=== PATIENT | female | born 1960 | race Caucasian/White ===

== ENCOUNTER → 2016-08-31 | Outpatient (CLI) | payer OTHER ==
[~2016-08-31] MED LIST: ALKA10CA PO; AMIO20TA PO; AMOX875T2 PO; DIGO0.12 PO; GUAI1TAB PO; LOPR1TAB6 PO; NIGHLIQ PO; XARE20TA PO
[2016-08-31 10:54] LABS: MEAN CORPUSCULAR HEMOGLOBIN 28.3 pg (27.0-33.0); MEAN CORPUSCULAR HGB CONC 32.1 g/dl (32.0-36.5); MEAN CORPUSCULAR VOLUME 88.2 fl (80.0-96.0); RED CELL DISTRIBUTION WIDTH 12.6 % (11.5-14.5); WHITE BLOOD COUNT 5.6 K/mm3 (4.0-10.0)
[2016-08-31 11:22] LABS: ALBUMIN 3.3 GM/DL (3.2-5.2); ALBUMIN/GLOBULIN RATIO 0.94 (1.00-1.93); ALKALINE PHOSPHATASE 80 U/L (45-117); ALT/SGPT 21 U/L (12-78); ANION GAP 6 MEQ/L (8-16); AST/SGOT 13 U/L (15-37); BILIRUBIN,TOTAL 0.2 MG/DL (0.2-1.0); BLOOD UREA NITROGEN 12 MG/DL (7-18); CALCIUM LEVEL 8.7 MG/DL (8.5-10.1); CARBON DIOXIDE LEVEL 29 MEQ/L (21-32); CHLORIDE LEVEL 110 MEQ/L (98-107); CREATININE FOR GFR 0.81 MG/DL (0.55-1.02); GLOMERULAR FILTRATION RATE > 60.0 (>51); GLUCOSE, FASTING 79 MG/DL (70-105); SODIUM LEVEL 145 MEQ/L (136-145); TOTAL PROTEIN 6.8 GM/DL (6.4-8.2)
== END ==
LOC: M LAB 10:25
PROVIDERS: ATTEND Internal Medicine Cardiovascular Disease
DX: I48.91 Unspecified atrial fibrillation (principal)

== ENCOUNTER → 2017-01-26 | Outpatient (REF) | payer OTHER ==
[~2017-01-26] MED LIST changes: +AMIO200T PO; -AMIO20TA PO
== END ==
LOC: M LAB REF 13:26
PROVIDERS: ATTEND Physician Assistant Medical
DX: N39.0 Urinary tract infection, site not specified (principal)

== ENCOUNTER 2018-02-12 16:11 | Emergency (ER) | payer OTHER, SELFPAY ==
[2018-02-12] MEDS ORDERED: DEXTROSE 50% 50 ML SYRINGE IV ×2 (16:59)
[2018-02-12] MEDS ORDERED: NS 500 ML IV ×2 (17:00)
[2018-02-12] MEDS: PERCOCET 5MG/325MG TAB PO ×2 (17:15)
== END 2018-02-12 17:30 | disposition home or self-care (01) ==
LOC: M ED 16:11
DX: S93.402A Sprain of unspecified ligament of left ankle, initial encounter (principal); X50.1XXA Overexertion from prolonged static or awkward postures, initial encounter; Y92.098 Other place in other non-institutional residence as the place of occurrence of the external cause; I48.91 Unspecified atrial fibrillation; I10 Essential (primary) hypertension; Z87.440 Personal history of urinary (tract) infections; Z79.899 Other long term (current) drug therapy; Z79.01 Long term (current) use of anticoagulants
CPT/HCPCS: 73610

== ENCOUNTER → 2018-02-26 | Outpatient (CLI) | payer BC, OTHER ==
[2018-02-26 08:29] LABS: BASO % 0.5 % (0.0-1.0); EOS # 0.1 10^3/uL (0.0-0.50); EOS % 1.4 % (0.0-3.0); HEMOGLOBIN 11.7 g/dl (12.0-15.5); IMMATURE GRANULOCYTE % 0.4 % (0-3.0); LYMPH # 1.6 10^3/uL (1.5-4.5); LYMPH % 27.9 % (24.0-44.0); MEAN CORPUSCULAR HEMOGLOBIN 28.2 pg (27.0-33.0); MEAN CORPUSCULAR HGB CONC 31.6 g/dl (32.0-36.5); MEAN CORPUSCULAR VOLUME 89.2 fl (80.0-96.0); MONO # 0.4 10^3/uL (0.0-0.8); MONO % 7.7 % (0.0-5.0); NEUTROPHILS # 3.4 10^3/uL (1.8-7.7); NEUTROPHILS % 62.1 % (36.0-66.0); PLATELET COUNT, AUTOMATED 228 10^3/uL (150-450); RED BLOOD COUNT 4.15 10^6/uL (4.00-5.40); RED CELL DISTRIBUTION WIDTH 12.9 % (11.5-14.5); WHITE BLOOD COUNT 5.6 10^3/uL (4.0-10.0)
[2018-02-26 09:21] LABS: ALBUMIN 3.1 GM/DL (3.2-5.2); ALBUMIN/GLOBULIN RATIO 0.76 (1.00-1.93); ALKALINE PHOSPHATASE 77 U/L (45-117); ALT/SGPT 25 U/L (12-78); ANION GAP 5 MEQ/L (8-16); AST/SGOT 13 U/L (7-37); BILIRUBIN,TOTAL 0.5 MG/DL (0.2-1.0); BLOOD UREA NITROGEN 11 MG/DL (7-18); CALCIUM LEVEL 8.3 MG/DL (8.5-10.1); CARBON DIOXIDE LEVEL 27 MEQ/L (21-32); CHLORIDE LEVEL 110 MEQ/L (98-107); CREATININE FOR GFR 0.96 MG/DL (0.55-1.30); FREE T4 1.07 NG/DL (0.76-1.46); GLOMERULAR FILTRATION RATE > 60.0 (>51); GLUCOSE, FASTING 85 MG/DL (70-100); POTASSIUM SERUM 4.2 MEQ/L (3.5-5.1); SODIUM LEVEL 142 MEQ/L (136-145); TOTAL PROTEIN 7.2 GM/DL (6.4-8.2)
[2018-02-26 09:42] LABS: ESTIMATED AVERAGE GLUCOSE 111 MG/DL (60-110); HEMOGLOBIN A1c 5.5 %
== END ==
LOC: M LAB 08:09
DX: I10 Essential (primary) hypertension (principal); R53.83 Other fatigue
CPT/HCPCS: 84443

== ENCOUNTER 2018-05-25 06:32 | Day surgery (SDC) | payer BC, OTHER ==
[2018-05-25] MEDS ORDERED: LIDOCAINE 2% INJ 100 MG/5 ML SDV (FOR ANES.) As Ordered (07:03)
[2018-05-25] MEDS ORDERED: PROPOFOL 200 MG/20 ML VIAL As Ordered (07:03)
[2018-05-25] MEDS: NS 1,000 ML IV (07:07)
== END 2018-05-25 08:25 | disposition home or self-care (01) ==
LOC: M OPP 06:32
DX: K57.30 Diverticulosis of large intestine without perforation or abscess without bleeding (principal); I48.91 Unspecified atrial fibrillation; I10 Essential (primary) hypertension; R60.9 Edema, unspecified; M12.9 Arthropathy, unspecified; F41.9 Anxiety disorder, unspecified; Z79.01 Long term (current) use of anticoagulants; Z79.899 Other long term (current) drug therapy
CPT/HCPCS: 45378

== ENCOUNTER → 2018-06-17 | Outpatient (CLI) | payer BC, OTHER | LOC: M SLEEP 18:25 | DX: G47.33 Obstructive sleep apnea (adult) (pediatric) (principal); R40.0 Somnolence | CPT/HCPCS: 95810 ==

== ENCOUNTER → 2018-07-06 | Outpatient (CLI) | payer BC, OTHER ==
[~2018-07-06] MED LIST changes: +FLUO40CA PO; +LOSA25TA33 PO; +METO1TAB7 PO; +PERC5TAB12 PO
[2018-07-06 13:25] LABS: BLOOD UREA NITROGEN 11 MG/DL (7-18); CALCIUM LEVEL 8.2 MG/DL (8.5-10.1); CARBON DIOXIDE LEVEL 28 MEQ/L (21-32); CHLORIDE LEVEL 107 MEQ/L (98-107); CHOLESTEROL LEVEL 208 MG/DL (<200); CHOLESTEROL RISK RATIO 4.837 (<5); CREATININE FOR GFR 0.89 MG/DL (0.55-1.30); GLOMERULAR FILTRATION RATE > 60.0 (>51); GLUCOSE, FASTING 80 MG/DL (70-100); HDL CHOLESTEROL 43 MG/DL (>40); LDL CHOLESTEROL 138 MG/DL (<100); NON-HDL-C 165 MG/DL; POTASSIUM SERUM 4.4 MEQ/L (3.5-5.1); SODIUM LEVEL 141 MEQ/L (136-145); TRIGLYCERIDES LEVEL 133 MG/DL (<150)
== END ==
LOC: M LAB 12:10
PROVIDERS: ATTEND Physician Assistant Medical
DX: I10 Essential (primary) hypertension (principal)

== ENCOUNTER → 2018-07-06 | Outpatient (CLI) | payer BC, OTHER ==
[2018-07-06 12:49] LABS: HEMATOCRIT 38.3 % (36.0-47.0); HEMOGLOBIN 11.9 g/dl (12.0-15.5); MEAN CORPUSCULAR HEMOGLOBIN 28.2 pg (27.0-33.0); MEAN CORPUSCULAR HGB CONC 31.1 g/dl (32.0-36.5); MEAN CORPUSCULAR VOLUME 90.8 fl (80.0-96.0); PLATELET COUNT, AUTOMATED 225 10^3/uL (150-450); RED BLOOD COUNT 4.22 10^6/uL (4.00-5.40); WHITE BLOOD COUNT 5.9 10^3/uL (4.0-10.0)
[2018-07-06 13:20] LABS: BLOOD UREA NITROGEN 10 MG/DL (7-18); CALCIUM LEVEL 8.3 MG/DL (8.5-10.1); CARBON DIOXIDE LEVEL 28 MEQ/L (21-32); CHLORIDE LEVEL 107 MEQ/L (98-107); CREATININE FOR GFR 0.92 MG/DL (0.55-1.30); GLOMERULAR FILTRATION RATE > 60.0 (>51); GLUCOSE, FASTING 82 MG/DL (70-100); POTASSIUM SERUM 4.4 MEQ/L (3.5-5.1); SODIUM LEVEL 142 MEQ/L (136-145)
== END ==
LOC: M LAB 12:18
PROVIDERS: ATTEND Internal Medicine Cardiovascular Disease
DX: I48.91 Unspecified atrial fibrillation (principal)

== ENCOUNTER → 2018-08-11 | Outpatient (CLI) | payer BC, OTHER ==
[~2018-08-11] MED LIST changes: +LOSA25TA14 PO; -LOSA25TA33 PO
--- NOTE | 2018-08-16 13:21 | SLEEPCENT ---
DATE OF STUDY: 08/11/2018 ORDERED BY: LIN Maynard Nocturnal polysomnography was performed for titration of pressure therapy in this patient with obstructive sleep apnea syndrome. Apnea-hypopnea index 6.5. For testing, a Calvin Eson nasal mask of medium size was used, 4 cm of water pressure were applied to the circuit, and the lights were extinguished. 8 hours and 17 minutes of data were reviewed. There were 406 minutes of sleep identified. Sleep latency was prolonged at 52 minutes. Rapid eye movement (REM) latency was prolonged at 172 minutes. Sleep architecture was fairly good with two REM cycles. Overall sleep efficiency was 82.7%. The patient's electrocardiogram showed a sinus rhythm with an average heart rate of 56 beats per minute. EEG showed reasonably normal waveforms for awake and sleep. There was some alpha intrusion into non REM stages. Respiratory events were best palliated with CPAP at a pressure of +7. There was little activity in the limbs. EMG leads and remaining measures of sleep physiology were normal. IMPRESSION: Obstructive sleep apnea syndrome (G47.33) RECOMMENDATIONS: Nightly use of pressure therapy 7 cm of water.
== END ==
LOC: M SLEEP 20:59
PROVIDERS: ATTEND Nurse Practitioner Family
DX: G47.33 Obstructive sleep apnea (adult) (pediatric) (principal)

== ENCOUNTER 2018-10-05 23:35 | Emergency (ER) | payer BC, OTHER ==
[~2018-10-05] VITALS: Ht 165.1 cm; Wt 104.5 kg
[2018-10-06 00:43] LABS: BASO % 0.5 % (0.0-1.0); EOS # 0.1 10^3/uL (0.0-0.50); EOS % 2.2 % (0.0-3.0); HEMATOCRIT 38.3 % (36.0-47.0); HEMOGLOBIN 12.1 g/dl (12.0-15.5); LYMPH # 1.8 10^3/uL (1.5-4.5); LYMPH % 28.7 % (24.0-44.0); MEAN CORPUSCULAR HEMOGLOBIN 27.6 pg (27.0-33.0); MEAN CORPUSCULAR HGB CONC 31.6 g/dl (32.0-36.5); MEAN CORPUSCULAR VOLUME 87.4 fl (80.0-96.0); MONO # 0.5 10^3/uL (0.0-0.8); MONO % 7.4 % (0.0-5.0); NEUTROPHILS # 3.8 10^3/uL (1.8-7.7); NEUTROPHILS % 60.9 % (36.0-66.0); PLATELET COUNT, AUTOMATED 275 10^3/uL (150-450); RED BLOOD COUNT 4.38 10^6/uL (4.00-5.40); WHITE BLOOD COUNT 6.2 10^3/uL (4.0-10.0)
[2018-10-06] MEDS ORDERED: KETOROLAC 30 MG/ML VIAL (J1885) IV ONE (01:00)
[2018-10-06 01:06] LABS: BLOOD UREA NITROGEN 14 MG/DL (7-18); CALCIUM LEVEL 8.5 MG/DL (8.5-10.1); CARBON DIOXIDE LEVEL 29 MEQ/L (21-32); CHLORIDE LEVEL 106 MEQ/L (98-107); CK-MB VALUE MASS < 1.0 NG/ML (<3.6); CPK CREATINE PHOSPHOKINASE 77 U/L (26-192); CREATININE FOR GFR 0.91 MG/DL (0.55-1.30); GLOMERULAR FILTRATION RATE > 60.0 (>51); GLUCOSE, FASTING 107 MG/DL (70-100); POTASSIUM SERUM 4.1 MEQ/L (3.5-5.1); SODIUM LEVEL 140 MEQ/L (136-145); TROPONIN I < 0.02 NG/ML (< 0.10)
--- NOTE | 2018-10-06 01:24 | REP ---
Clinical: Chest pain . Comparison: 04/06/2016 . Findings: The mediastinum and cardiac silhouette are stable and within normal limits for portable technique. The lung luis are clear without acute consolidation, effusion, or pneumothorax. Small area of linear fibro atelectatic change in the left lower lung zone noted. Skeletal structures are intact. Impression: Small area of linear fibro atelectatic change in the left lung zone. Electronically Signed by Gabriel Uribe MD 10/06/2018 01:16 A
[2018-10-06 02:15] VITALS: BP 125/64
[2018-10-06] MEDS ORDERED: PRED20TA PO (02:27)
--- NOTE | 2018-10-07 06:11 | ECGEPIP ---
Stationary ECG Study [facility] - ED Test Date: 2018-10-05 Pat Name: ROSHNI SILVER Department: Room: - Gender: F Sash Finisher: ANA : 1960 Requested By: MAURICE Keith Order Number: [id number] Reading MD: Benjamin Ibarra Measurements Intervals [place] Rate: 61 P: 51 W[place]: 176 QRS: 8 QRSD: 102 T: 21 QT: 472 QTc: 477 Interpretive Statements SINUS RHYTHM PROLONGED QT INTERVAL RHYTHM/RATE CHANGE COMPARED TO 04/14/16 Electronically Signed On 10-07-2018 6:10:51 EDT by Benjamin Ibarra
== END 2018-10-06 02:32 | disposition home or self-care (01) ==
LOC: M ED 23:35
DX: R07.89 Other chest pain (principal)
CPT/HCPCS: 71045; 80048; 82550; 82553; 84484; 85025; 93005; 93041; 94760; 96374; 99285; J1885

== ENCOUNTER → 2018-11-30 | Outpatient (CLI) | payer BC, OTHER ==
[~2018-11-30] MED LIST changes: +ACET-897 PO; +CHLO125TA PO; +CVS1CAP2 PO; +DIGO0.25 PO; +PRED20TA PO; +SOTA80TA2 PO
[2018-11-30 11:06] LABS: BASO # 0.1 10^3/uL (0.0-0.2); BASO % 0.6 % (0.0-1.0); EOS # 0.1 10^3/uL (0.0-0.50); EOS % 1.5 % (0.0-3.0); HEMATOCRIT 38.7 % (36.0-47.0); LYMPH # 1.8 10^3/uL (1.5-4.5); LYMPH % 22.6 % (24.0-44.0); MEAN CORPUSCULAR HEMOGLOBIN 28.1 pg (27.0-33.0); MEAN CORPUSCULAR VOLUME 90.6 fl (80.0-96.0); MONO # 0.5 10^3/uL (0.0-0.8); MONO % 6.4 % (0.0-5.0); NEUTROPHILS # 5.4 10^3/uL (1.8-7.7); NEUTROPHILS % 68.4 % (36.0-66.0); PLATELET COUNT, AUTOMATED 276 10^3/uL (150-450); RED BLOOD COUNT 4.27 10^6/uL (4.00-5.40)
[2018-11-30 11:49] LABS: BLOOD UREA NITROGEN 20 MG/DL (7-18); CALCIUM LEVEL 8.7 MG/DL (8.5-10.1); CARBON DIOXIDE LEVEL 30 MEQ/L (21-32); CHLORIDE LEVEL 104 MEQ/L (98-107); CREATININE FOR GFR 0.94 MG/DL (0.55-1.30); FOLATE 10.1 NG/ML; GLOMERULAR FILTRATION RATE > 60.0 (>51); GLUCOSE, FASTING 94 MG/DL (70-100); IRON (FE) 72 UG/DL (50-170); PERCENT SATURATION 25.8 % (13.2-45.0); POTASSIUM SERUM 3.5 MEQ/L (3.5-5.1); SODIUM LEVEL 142 MEQ/L (136-145); TOTAL IRON BINDING CAPACITY 279 UG/DL (250-450); VITAMIN B12 LEVEL 344 PG/ML
== END ==
LOC: M LAB 09:51
PROVIDERS: ATTEND Physician Assistant Medical
DX: R42 Dizziness and giddiness (principal)

== ENCOUNTER → 2018-11-30 | Outpatient (CLI) | payer BC, OTHER ==
[2018-11-30 11:31] LABS: BLOOD UREA NITROGEN 19 MG/DL (7-18); CALCIUM LEVEL 8.7 MG/DL (8.5-10.1); CARBON DIOXIDE LEVEL 29 MEQ/L (21-32); CHLORIDE LEVEL 104 MEQ/L (98-107); CREATININE FOR GFR 0.93 MG/DL (0.55-1.30); GLOMERULAR FILTRATION RATE > 60.0 (>51); GLUCOSE, FASTING 94 MG/DL (70-100); POTASSIUM SERUM 3.5 MEQ/L (3.5-5.1); SODIUM LEVEL 142 MEQ/L (136-145)
== END ==
LOC: M LAB 10:00
PROVIDERS: ATTEND Physician Assistant
DX: I10 Essential (primary) hypertension (principal); I42.9 Cardiomyopathy, unspecified

== ENCOUNTER 2018-12-02 10:12 | Observation (INO) | payer BC, OTHER ==
[~2018-12-02] VITALS: Ht 165.1 cm; Wt 109.0 kg
[~2018-12-02 10:12] MED LIST changes: -ACET-897 PO; -CHLO125TA PO; -CVS1CAP2 PO; -DIGO0.25 PO; -SOTA80TA2 PO
[2018-12-02 10:41] LABS: BASO % 0.5 % (0.0-1.0); EOS # 0.1 10^3/uL (0.0-0.50); EOS % 1.5 % (0.0-3.0); HEMATOCRIT 38.6 % (36.0-47.0); HEMOGLOBIN 12.7 g/dl (12.0-15.5); LYMPH % 25.1 % (24.0-44.0); MEAN CORPUSCULAR HEMOGLOBIN 28.8 pg (27.0-33.0); MEAN CORPUSCULAR HGB CONC 32.9 g/dl (32.0-36.5); MEAN CORPUSCULAR VOLUME 87.5 fl (80.0-96.0); MONO # 0.5 10^3/uL (0.0-0.8); NEUTROPHILS # 5.3 10^3/uL (1.8-7.7); NEUTROPHILS % 66.5 % (36.0-66.0); PLATELET COUNT, AUTOMATED 291 10^3/uL (150-450); RED BLOOD COUNT 4.41 10^6/uL (4.00-5.40)
[2018-12-02] MEDS ORDERED: CHLO125TA PO (10:42)
[2018-12-02] MEDS ORDERED: SOTA80TA2 PO (10:42)
[2018-12-02 10:55] LABS: INR 2.07; PROTHROMBIN TIME 23.7 SECONDS (12.1-14.4)
[2018-12-02 10:56] LABS: PARTIAL THROMBOPLASTIN TIME 48.4 SECONDS (25.4-37.6)
[2018-12-02 11:09] LABS: BLOOD UREA NITROGEN 16 MG/DL (7-18); CALCIUM LEVEL 9.2 MG/DL (8.5-10.1); CARBON DIOXIDE LEVEL 28 MEQ/L (21-32); CHLORIDE LEVEL 104 MEQ/L (98-107); CK-MB VALUE MASS < 1.0 NG/ML (<3.6); CPK CREATINE PHOSPHOKINASE 57 U/L (26-192); CREATININE FOR GFR 1.02 MG/DL (0.55-1.30); GLOMERULAR FILTRATION RATE 59.7 (>51); GLUCOSE, FASTING 104 MG/DL (70-100); MB/CK RELATIVE INDEX 1.75 (< OR =4); POTASSIUM SERUM 3.3 MEQ/L (3.5-5.1); SODIUM LEVEL 140 MEQ/L (136-145); TROPONIN I < 0.02 NG/ML (< 0.10)
--- NOTE | 2018-12-02 11:56 | REP ---
CT Head without contrast HISTORY: Weakness COMPARISON: MR 09/2002 There is no intraparenchymal hemorrhage, acute infarct, mass or midline shift. The ventricular system is normal in appearance. There is no extra cerebral collection. There is no fracture. The visualized sinuses are clear. IMPRESSION: There is no intracranial lesion. Electronically Signed by Kennedy Sesay MD 12/02/2018 11:48 A
[2018-12-02] MEDS ORDERED: KETOROLAC 30 MG/ML VIAL (J1885) IV ONE (12:30)
[2018-12-02] MEDS ORDERED: ISOVUE-370 76% 100ML VIAL (Q9967) As Ordered ONE (12:47)
--- NOTE | 2018-12-02 12:54 | REP ---
Portable chest x-ray: Single view. History: Chest pain. Comparison study: October 06, 2018. Findings: EKG monitoring electrodes and a loop recorder are seen. The heart is borderline unchanged. There is minimal linear fibrosis in the left perihilar region. The lung luis are otherwise clear. Pulmonary vasculature is not increased. Pleural angles are sharp. Impression: Minimal linear fibrosis in the left lower lung field. Borderline heart size. Otherwise no acute disease. Loop recorder and EKG electrodes seen. Electronically Signed by Dakota Mandujano MD 12/02/2018 06:24 P
[2018-12-02] MEDS ORDERED: POTASSIUM CHLORIDE 10 MEQ SR TABLET PO ONE (13:30)
--- NOTE | 2018-12-02 14:56 | REP ---
CT ANGIOGRAM CHEST: 12/02/2018. Clinical history: Chest pain, dyspnea. Technique: Bolus of 75 mL Isovue 370 with scanning through the chest using our CT pulmonary angiogram protocol with coronal and sagittal thick slab MIP and standard reformats. Comparison 04/10/2016, CTA. Findings: Some minor dependent atelectatic changes posteriorly in both lungs. Some subsegmental atelectasis in the superior lingular segment of the left upper lobe just anterior to the major fissure. No nodule, mass or acute infiltrate. No pleural effusion, pleural-based mass or calcified pleural plaque. Heart with some left atrial enlargement. Heart size borderline. There is no pericardial thickening or effusion. The aorta is without aneurysm or dissection. The main, right and left pulmonary arteries and the mediastinum are without filling defects. No vessel cutoff or other evidence for pulmonary embolism. No pathologic sized mediastinal or hilar adenopathy and no axillary or supraclavicular mass. Bone windows show the sternum, manubrium, medial heads of the clavicles, small portions of humeral heads included, the scapulae, visualized ribs and spine without fracture, or destructive lesion. There are marginal osteophytes without compression deformity in the spine. In the upper abdomen that portion of liver included shows no focal hepatic mass or biliary dilatation. Gallbladder without calcified stone. Spleen not enlarged and without a focal lesion. Pancreas unremarkable. Adrenal glands normal. Impression: 1. There is no CT evidence of pulmonary thromboembolism. Some minor subsegmental atelectatic change in the lingula just anterior to the major fissure. 2. Aortic aneurysm or dissection, mediastinal or hilar adenopathy, chest wall mass or focal bone lesion. No pneumothorax or pneumomediastinum. 3. Upper abdomen without acute finding. Bones without compression fracture or destructive lesion in the spine. Electronically Signed by Nando Tim MD 12/02/2018 05:15 P
[2018-12-02 16:14] LABS: CK-MB VALUE MASS < 1.0 NG/ML (<3.6); CPK CREATINE PHOSPHOKINASE 47 U/L (26-192); MB/CK RELATIVE INDEX 2.13 (< OR =4); TROPONIN I < 0.02 NG/ML (< 0.10)
[2018-12-02] MEDS ORDERED: CVS1CAP2 PO (16:16)
[2018-12-02] MEDS ORDERED: ACET-897 PO (16:16)
[2018-12-02] MEDS ORDERED: XARE20TA PO (16:16)
[2018-12-02 17:00] VITALS: BP 119/58
--- NOTE | 2018-12-02 17:03 | HPEPDOC ---
General Date of Admission December 02, 2018 at 15:19 Attending Physician: ИРИНА ROMERO MD Chief Complaint The patient is a 58-year-old female admitted with a reason for visit of Bradycardia. History of Present Illness Patient is a 58-year-old female, past medical history significant for persistent atrial fibrillation status post atrial fibrillation ablation July 2018 on anticoagulation therapy with Xarelto, status post implantable loop recorder, morbid obesity, obstructive sleep apnea, valvular heart disease, presenting to the emergency room on account of chest pain. Patient describes chest pain which feels like an indigestion, occurring with intermittent frequency every other day, and states this is her second visit with the same problem this week. In July of this year. Patient had ablation at [facility] and feels it worked, but reports she still has intermittent breakthrough atrial fibrillation with rapid ventricular response. This morning she woke up at 1 AM feeling like she was in atrial fibrillation. This persisted until about 8 AM when she woke up and took her medications with gradual subsiding of symptoms. She did, however, get a call from [facility] asking her if she was okay because her heart rate was elevated She describes chest pain as a heaviness on the left rib cage with radiation to her arm with left arm tingling and heaviness. She denied nausea, chills, shortness of breath but felt breathing was impaired by symptoms. On admit CTA completed to rule out pulmonary emboli was negative. There was no effusion or any acute cardiopulmonary process. Bedside telemetry also was unremarkable and showed heart rate persistently in sinus bradycardia. Patient states she has been compliant with CPAP use at night. She admits not using CPAP on nights when she sleeps with her grandkids. Admission EKG showed sinus bradycardia with prolonged QT. EKG was not available for review at time of assessment. Troponin was negative, and potassium was abnormal at 3.3. Home Medications Scheduled Chlorthalidone (Chlorthalidone) 25 Mg Tablet, 25 MG PO DAILY, (Reported) Fluoxetine Hcl (Fluoxetine HCl) 40 Mg Cap, 40 MG PO DAILY, (Reported) Lactobacillus Combo No.10 (Probiotic) 1 Each Capsule, 1 CAP PO DAILY, (Reported) Metoprolol Succinate (Metoprolol Succinate) 50 Mg Tab, 50 MG PO DAILY, (Reported) PATIENT WAS JUST RESTARTED ON THIS MED 2 WEEKS AGO Rivaroxaban (Xarelto) 20 Mg Tablet, 20 MG PO DAILY, (Reported) Sotalol HCl (Sotalol) 80 Mg Tablet, 80 MG PO BID, (Reported) Scheduled PRN Acetaminophen (Tylenol Extra Strength) 500 Mg Tablet, 1,000 MG PO TID PRN for PAIN, (Reported) Allergies Coded Allergies: No Known Allergies (Unverified , 12/02/18) Past Medical History Medical History Obesity Sleep apnea Hypertension Paroxysmal atrial fibrillation Valvular heart disease Surgical History Implantable loop recorder Hysterectomy Appendectomy Lysis of adhesion Family History Father: CAD and fatal myocardial infarction. Mother: Breast and ovarian cancer. Siblings: renal cancer A-FIB/CHADSVASC A-FIB History Current/History of A-Fib/PAF?: Yes Current Oral Anticoagulant The: Yes Treatment Treatment ordered: Rivaroxaban Review of Systems Other systems A pertinent 10 point review of systems was completed, negative except as stated in the history of presenting illness. Physical Examination Other physical findings GENERAL: NAD SKIN : Warm, dry intact HEENT: Atraumatic, normocephalic, PERRL, moist mucous membrane CARDIOVASCULAR: Regular rate and rhythm, S1S2, no JVD, no edema, distal pulses + and palpable RESP: CTAB, no accessory muscle use noted ABDOMEN: BS+ non distended non tender MS: Pain with palpation of left chest wall and latissimus dorsi, no joint deformities NEURO: Alert and oriented x 3, CN2-12 grossly intact PSYCH: no anxiety or agitation, appropriate mood and affect. Vital Signs Vital Signs Date Time Temp Pulse Resp B/P (MAP) Pulse Ox O2 Delivery O2 Flow Rate FiO2 12/02/18 15:46 96/46 (63) 12/02/18 15:45 51 100 12/02/18 10:33 98.0 20 Room Air Laboratory Data Labs 24H Laboratory Tests 2 12/02/18 10:24: Immature Granulocyte % (Auto) 0.4, White Blood Count 8.0, Red Blood Count 4.41, Hemoglobin 12.7, Hematocrit 38.6, Mean Corpuscular Volume 87.5, Mean Corpuscular Hemoglobin 28.8, Mean Corpuscular Hemoglobin Concent 32.9, Red Cell Distribution Width 12.6, Platelet Count 291, Neutrophils (%) (Auto) 66.5H, Lymphocytes (%) (Auto) 25.1, Monocytes (%) (Auto) 6.0H, Eosinophils (%) (Auto) 1.5, Basophils (%) (Auto) 0.5, Neutrophils # (Auto) 5.3, Lymphocytes # (Auto) 2.0, Monocytes # (Auto) 0.5, Eosinophils # (Auto) 0.1, Basophils # (Auto) 0.0, Nucleated Red Blood Cells % (auto) 0.0, Prothrombin Time 23.7H, Prothromb Time International Ratio 2.07, Activated Partial Thromboplast Time 48.4H, Anion Gap 8, Glomerular Filtration Rate 59.7, Blood Urea Nitrogen 16, Creatinine 1.02, Sodium Level 140, Potassium Level 3.3L, Chloride Level 104, Carbon Dioxide Level 28, Calcium Level 9.2, Total Creatine Kinase 57, Creatine Kinase MB < 1.0, Creatine Kinase MB Relative Index 1.75, Troponin I < 0.02 12/02/18 15:11: Total Creatine Kinase 47, Creatine Kinase MB < 1.0, Creatine Kinase MB Relative Index 2.13, Troponin I < 0.02, Magnesium Level 1.8 CBC/BMP Laboratory Tests 12/02/18 10:24 Red Blood Count 4.41, Mean Corpuscular Volume 87.5, Mean Corpuscular Hemoglobin 28.8, Mean Corpuscular Hemoglobin Concent 32.9, Red Cell Distribution Width 12.6, Neutrophils (%) (Auto) 66.5 H, Lymphocytes (%) (Auto) 25.1, Monocytes (%) (Auto) 6.0 H, Eosinophils (%) (Auto) 1.5, Basophils (%) (Auto) 0.5, Neutrophils # (Auto) 5.3, Lymphocytes # (Auto) 2.0, Monocytes # (Auto) 0.5, Eosinophils # (Auto) 0.1, Basophils # (Auto) 0.0, Calcium Level 9.2, Total Creatine Kinase 57 Assessment/Plan Chest pain. -Cardiac biomarkers are negative for acute myonecrosis -Patient has risk factors with hypertension, morbid obesity and myocardial infarction and first degree family member -2-D echo to evaluate ejection fraction, rule out regional wall motion abnormalities -Admit to monitored bed Hypertension -Currently hypotensive -Hold sotalol as discussed with cardiology -Continue metoprolol tartrate for heart rate control given underlying A. fib -Monitoring per unit protocol Paroxysmal atrial fibrillation -Prolonged QT on sotalol -Discussed with patient's dental appliance repairer, who plans to see an has recommended sotalol be held at this time for prolonged QT -Status post ablation July 2018, but reported frequent episodes of atrial fibrillation with RVR -Discussed with patients dental appliance repairer-Isaac who plans to interrogate implantable loop recorder for frequency and A. fib. burden Obstructive sleep apnea -Continue CPAP with patient's home settings Hypokalemia -Repleted in the emergency room, monitor levels to keep greater than 4 -Check magnesium to keep greater than 2 Obesity. -Therapeutic lifestyle changes encouraged -Dietary modifications Musculoskeletal pain -Pain is reproducible traveling along the left lateral dermatome -Start patient on Neurontin and Tylenol as needed -Ibuprofen with meals as needed DVT prophylaxis -Fully anticoagulated on Xarelto Plan / VTE VTE Prophylaxis Ordered?: Yes ADAM IYER December 02, 2018 17:03
[2018-12-02] MEDS ORDERED: CYCLOBENZAPRINE 5MG TABLET PO PRN (17:15)
[2018-12-02] MEDS ORDERED: NS 1,000 ML IV SCH (17:30)
--- NOTE | 2018-12-02 18:51 | ECHO ---
DATE OF PROCEDURE: 12/02/2018 REFERRING PROVIDER: LIN Galvez INDICATION: Chest pain, atrial fibrillation. Height is 163 cm and weight is 107 kg. DIMENSIONS: IVS: 0.9 LV: 5.3 LVPW: 0.9 LA: 4.5 Aorta: 2.5 IVC: 1.9 Mitral E wave velocity: 93 A wave: 54 E prime septal: 7.0 E prime lateral: 9.3 FINDINGS: The study is of good technical quality especially considering patient's body habitus. The left ventricle is of normal size and systolic function with estimated ejection fraction (EF) around 55-60%. I do not appreciate any segmental wall motion abnormalities. Right ventricle is also normal size and systolic function. Left atrium is at least moderately enlarged, right atrium appears grossly normal. Aortic valve is minimally sclerotic but has normal mobility. Mitral, tricuspid and pulmonic valves appear normal. No pericardial effusion is noted. Inferior vena cava is in upper limits of normal size and collapses appropriately with respiration indicative of likely normal central venous pressure. Aortic root is normal. Aortic arch and abdominal aorta also appear normal. Doppler interrogation of aortic valve reveals no stenosis or insufficiency. There is trace tricuspid and trace mitral insufficiency. Calculated pulmonary artery pressure is in low 30s corresponding to mild pulmonary hypertension. Pulmonic valve is functionally competent. Mitral inflow pattern and tissue Doppler imaging of mitral annulus revealed likely grade 2 diastolic dysfunction. CONCLUSIONS: 1. Study is of acceptable technical quality. 2. Normal left ventricular (LV) size with normal LV systolic function and probably grade 2 diastolic dysfunction. 3. No hemodynamically significant valvular disease. 4. Normal central venous pressure and likely mild pulmonary hypertension. COMMENT: Subacute bacterial endocarditis (SBE) prophylaxis is not recommended.
[2018-12-02 20:00] VITALS: BP 96/48
--- NOTE | 2018-12-02 20:23 | CR ---
DATE OF CONSULTATION: 12/02/2018 REFERRING PROVIDER: Hospitalist Service. INDICATION: Chest pain, atrial fibrillation. HISTORY OF PRESENT ILLNESS: Mrs. Newman is known to me. is a 58-year-old female who has a history of paroxysmal atrial fibrillation dating back to 2016. She was originally treated purely medically, including use of amiodarone but eventually was able to undergo atrial fibrillation ablation on July 25, [address] Renard King. The procedure was initially successful, and she after the ablation did not have any episodes. He started her on sotalol 80 mg twice a day. Starting approximately September, though, she reports episodes of palpitations that have been increasing in frequency and as of lately, she reports virtually daily palpitations. They do occur with variable duration that could be anywhere from a few minutes up to several hours. She came to emergency room earlier today after she was woken up early this morning by sensation of palpitations that spontaneously resolved but then later in the morning hours she not only had palpitations but also sensation of pressure behind her sternum. She said it was a sensation like she swallowed a foreign body. After it was present for several hours, she decided to come to the emergency room. While in the emergency room, she felt not only discomfort but there was also associated tingling and numbness in her left upper extremity. While the in the emergency room (ER), she had evaluation that included CT angiography of the chest, chest x-ray and CT of the head. They were all negative. There were several episodes of atrial fibrillation that were short-lived that were evidenced on a monitor. Eventually it was decided to admit her for further observation. I was asked by hospitalist service to see her. At bedside, the patient currently feels comfortable. She denies any chest discomfort or palpitations. She tells me that the discomfort lasted at that least 2 hours, if not longer, and she has had similar episodes of discomfort relatively frequently in last 4 weeks. None of them is exertionally related, and all of them typically last several hours. She feels that laying down can make the discomfort worse but not consistently. PAST MEDICAL HISTORY: Coronary artery disease as above. History of ablation on July 25, 2018 that was preceded by transesophageal echocardiogram that was essentially normal. Arterial hypertension. Dyslipidemia. Obesity. Obstructive sleep apnea. 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 SURGICAL HISTORY: Positive for appendectomy, section and varicose vein stripping. 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 She does not drink alcohol, and there is no history of smoking. FAMILY HISTORY: Negative for early coronary artery disease. OUTPATIENT MEDICATIONS: - chlorthalidone 25 mg a day - Ventolin as needed - prednisone as needed - acidophilus as needed - sotalol 80 mg twice a day - iron sulfate 325 mg a day - fluoxetine 40 mg a day - Xarelto 20 mg a day ALLERIGES: No known medication allergies. REVIEW OF SYSTEMS: She denies any recent fever, chills, nausea, vomiting, diarrhea. No bleeding. She denies any syncope or near syncope. No peripheral edema. The rest of review of systems is negative. PHYSICAL EXAMINATION: Vital signs: Blood pressure 119/58, heart rate from high 40s to low 60s, sinus rhythm, afebrile. Saturation 98-99% on room air. Weight is documented at 109 kg. She is an obese, middle-aged lady who appears to be in no distress lying in progressive care unit (PCU) bed completely flat. I do not appreciate carotid bruits. Her jugular venous pressure (JVP) is not high. Lungs are clear with good air movement. Heart: Exam reveals regular rhythm. I do not appreciate any gallop, rub or murmur. Abdomen is soft without tenderness/rebound tenderness. There is no peripheral edema. Peripheral pulses are of good quality. Neurologically she is intact. She is alert and oriented and appropriate. I do not appreciate any focal signs. Skin is intact. LABORATORY DATA: CBC is normal. Basic metabolic panel: Sodium 140, potassium 3.3, BUN 16, creatinine 1.0, glucose 104. Two sets of cardiac enzymes are negative. Magnesium is 1.8. INR is 2.0. ECG that was performed in the emergency room at 10:23 this morning reveals sinus bradycardia with ventricular rate 56 beats per minute and normal QRS morphology but prolonged QT interval, approximately 510 milliseconds. Chest x-ray, CT angiography of the chest and head CT as per history of present illness. Echocardiogram performed in the emergency room reveals preserved left ventricular systolic function, probably grade 2 diastolic dysfunction. No significant valvular disease and at least moderate left atrial enlargement. ASSESSMENT/PLAN: Mrs. Newman is a 58-year-old female who has a history of obesity and hypertension, who presents with chest discomfort and palpitations. I interrogated her Reveal monitor, which reveals multiple episodes of atrial fibrillation since September, when was her last interrogation. She had numerous episodes today, the longest lasting 1 hour and 22 minutes. She typically has very fast ventricular response that can reach over 200 beats per minute temporarily, but the average ventricular rate is usually about 120-130 beats per minute. As far as the atrial fibrillation management is concerned, I feel that she will very likely need redo ablation. I am going to at least temporarily discontinue sotalol due to QT prolongation and lack of effectiveness. It is not likely that we will be able to increase the dose considering the QT interval. It was unfortunate that she was being given diuretics. I have not seen the patient since the sotalol was started, but at this point, I am going to discontinue the medication regardless. If she should have recurrent episodes of atrial fibrillation during this hospitalization, I believe that amiodarone probably would be the best choice, but I would first wait until the effect of sotalol will resolve. In that regard, I am ordering EKG for tomorrow morning. Obviously her anticoagulation will be continued. The second issue is chest discomfort. It certainly does not sound typical for angina, but the etiology is not clear to me. I do believe that it is appropriate to formally rule her out, and I tentatively plan to perform evaluation for ischemia on an outpatient basis. Because of uncertainty about presence of coronary artery disease, I do not think that class Ic antiarrhythmics are yet appropriate. Dr. Crowley will cover the weekend.
[2018-12-02] MEDS: GABAPENTIN 100 MG CAP PO SCH (20:37)
[2018-12-02 23:59] VITALS: BP 99/54
[2018-12-03 04:00] VITALS: BP 101/57
[2018-12-03 05:34] LABS: HEMATOCRIT 34.4 % (36.0-47.0); MEAN CORPUSCULAR HEMOGLOBIN 27.8 pg (27.0-33.0); MEAN CORPUSCULAR VOLUME 87.1 fl (80.0-96.0); PLATELET COUNT, AUTOMATED 238 10^3/uL (150-450); RED BLOOD COUNT 3.95 10^6/uL (4.00-5.40); WHITE BLOOD COUNT 6.3 10^3/uL (4.0-10.0)
[2018-12-03 06:11] LABS: ALBUMIN 2.7 GM/DL (3.2-5.2); ALT/SGPT 15 U/L (12-78); BILIRUBIN,TOTAL 0.2 MG/DL (0.2-1.0); BLOOD UREA NITROGEN 27 MG/DL (7-18); CALCIUM LEVEL 8.5 MG/DL (8.5-10.1); CARBON DIOXIDE LEVEL 28 MEQ/L (21-32); CHLORIDE LEVEL 108 MEQ/L (98-107); CREATININE FOR GFR 1.01 MG/DL (0.55-1.30); GLOMERULAR FILTRATION RATE > 60.0 (>51); GLUCOSE, FASTING 93 MG/DL (70-100); MAGNESIUM LEVEL 1.8 MG/DL (1.8-2.4); POTASSIUM SERUM 3.4 MEQ/L (3.5-5.1); SODIUM LEVEL 142 MEQ/L (136-145); TOTAL PROTEIN 6.5 GM/DL (6.4-8.2)
[2018-12-03] MEDS ORDERED: POTASSIUM CHLORIDE 10 MEQ SR TABLET PO ONE (07:00)
[2018-12-03 08:00] VITALS: BP 105/68
[2018-12-03] MEDS: ACETAMINOPHEN TAB 650MG DOSE (2X325MG) PO PRN (08:01)
[2018-12-03] MEDS ORDERED: METOPROLOL SUCC (TopROL XL) 50MG **XL** TAB PO SCH (09:00)
[2018-12-03] MEDS ORDERED: CHLORTHALIDONE 25 MG TAB PO SCH (09:00)
[2018-12-03] MEDS ORDERED: SLF 3 ML SYR IV PRN (09:15)
[2018-12-03] MEDS: RIVAROXABAN 20 MG TAB (XARELTO) PO SCH (09:16)
[2018-12-03] MEDS: FLUoxetine 20 MG CAP PO SCH (09:16)
[2018-12-03] MEDS: GABAPENTIN 100 MG CAP PO SCH ×3 (09:16→20:32)
[2018-12-03] MEDS ORDERED: DIGOXIN 0.25 MG TAB PO SCH (11:30)
[2018-12-03 12:00] VITALS: BP 115/72
[2018-12-03] MEDS: METOPROLOL TART 25 MG TABLET PO SCH ×3 (12:00→23:24)
--- NOTE | 2018-12-03 12:12 | IPNPDOC ---
Subjective Date Seen The patient was seen on 12/03/18. Subjective Chief Complaint/HPI Does not have any chest discomfort or arm numbness or heavyness today. Though she is tender to touch at many of baljit pressure points specially in her shoulders, upper and lower back. No SOb or cough . No nausea or voming or diarrhea. Objective Physical Examination General Exam: Positive: Alert, Cooperative, No Acute Distress Eye Exam: Positive: PERRLA, Conjunctiva & lids normal, EOMI; Negative: Sclera icteric ENT Exam: Positive: Atraumatic, Mucous membr. moist/pink, Pharynx Normal Neck Exam: Positive: Supple; Negative: JVD, thyromegaly Chest Exam: Positive: Clear to auscultation, Normal air movement Heart Exam: Positive: Bradycardic, Regular Rhythm, Normal S1, Normal S2; Negative: Gallops, Murmurs, Rubs Telemetry: Positive: Sinus, Bradycardia Abdomen Exam: Positive: Normal bowel sounds, Soft; Negative: Tenderness, Hepatospenomegaly Extremity Exam: Negative: Clubbing, Cyanosis, Edema Skin Exam: Positive: Nl turgor and temperature; Negative: Rash, Breakdown Neuro Exam: Positive: Normal Speech, Strength at 5/5 X4 ext, Normal Tone A-FIB/CHADSVASC A-FIB History Current/History of A-Fib/PAF?: Yes Current Oral Anticoagulant The: Yes Assessment /Plan Assessment This is a 58-year-old female with PMH of history of paroxysmal atrial fibrillation s/p ablation in jul 2018, Coronary artery disease as above, transesophageal echocardiogram before ablation that was essentially normal, hypertension, Dyslipidemia, Obesity, Obstructive sleep apnea on CPAP, Remote history of 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 She was noted to have sinus bradycardia with QTc prolongation in EKG. However the monitor in the ED showed several short runs of Afib. The ablation procedure was initially successful. She was started on sotalol 80 mg twice a day. Starting approximately September, though, she reports episodes of palpitations that have been increasing in frequency and as of lately, she reports virtually daily palpitations. They do occur with variable duration that could be anywhere from a few minutes up to several hours. Today she was woken up early this morning by sensation of palpitations that spontaneously resolved At that time she had bilateral numbness of the hands. She does have history of carpal tunnel so she though it was the carpal tunnel syndrome. The riight arm and hand got bettr but the left arm continued to be heavy and numb. Then later in the morning hours she not only had palpitations but also sensation of pressure behind her sternum. She said it was a sensation like she swallowed a foreign body. Along with that she was dizzy and nauseous. After it was present for several hours, she decided to come to the emergency room. While in the emergency room, she felt not only discomfort but there was also associated tingling and numbness in her left upper extremity. While the in the emergency room (ER), she had evaluation that included CT angiography of the chest, chest x-ray and CT of the head. They were all n egative. There were several episodes of atrial fibrillation that were short- lived that were evidenced on a monitor. It was decided to admit her for QTc prolongation and adjustment of her cardiac meds. Sinus bradycardia with prolonged QTc stopped sotalol. EKG reordered Paroxysmal atrial fibrillation Prolonged QT on sotalol Status post ablation July 2018, but reported frequent episodes of atrial fibrillation with RVR Interrogation of implantable loop recorder showed 39 episodes since its i mplantations in May 2018 2.4% of the time she has been in A fib. Discussed with Dr Crowley will start the patient on digoxin and start metoprolol tartarate 25 q6 if tolerated by pulse. continue Xarelto Chest pain. Non anginal , cardiac markers negative. could be due to afib with rvr which she had an episode yesterday morning which was seen in her loop recorder vs musculoskeletal Grade 2 diastolic dysfunction in echo no history of heart failure stopped chlorthalidone Hypertension but currently her Bp is low normal. Obstructive sleep apnea Continue CPAP with patient's home settings Hypokalemia Repleted Morbid Obesity. Therapeutic lifestyle changes encouraged Dietary modifications Musculoskeletal pain Patient has several tender points and her skin is extremely sensitive. May have underlying fibromyalgia. DVT prophylaxis Fully anticoagulated on Xarelto Plan/VTE VTE Prophylaxis Ordered?: Yes VS, I&O, 24H, Fishbone Vital Signs/I&O Vital Signs Date Time Temp Pulse Resp B/P (MAP) Pulse Ox O2 Delivery O2 Flow Rate FiO2 12/03/18 11:00 54 96 Room Air 12/03/18 08:00 97.9 18 105/68 (80) I&O- Last 24 Hours up to 6 AM 12/03/18 06:00 Intake Total 860 ml Output Total 300 ml Balance 560 ml Laboratory Data 24H LABS Laboratory Tests 2 12/02/18 15:11: Magnesium Level 1.8, Total Creatine Kinase 47, Creatine Kinase MB < 1.0, Creatine Kinase MB Relative Index 2.13, Troponin I < 0.02 12/02/18 21:00: Troponin I < 0.02 12/03/18 05:09: Magnesium Level 1.8, Nucleated Red Blood Cells % (auto) 0.0, Anion Gap 6L, Glomerular Filtration Rate > 60.0, Blood Urea Nitrogen 27#H, Creatinine 1.01, Sodium Level 142, Potassium Level 3.4L, Chloride Level 108H, Carbon Dioxide Level 28, Calcium Level 8.5, Aspartate Amino Transf (AST/SGOT) 17, Alanine Aminotransferase (ALT/SGPT) 15, Alkaline Phosphatase 68, Total Bilirubin 0.2, Total Protein 6.5, Albumin 2.7L, Albumin/Globulin Ratio 0.71L CBC/BMP Laboratory Tests 12/03/18 05:09 Red Blood Count 3.95 L, Mean Corpuscular Volume 87.1, Mean Corpuscular Hemoglobin 27.8, Mean Corpuscular Hemoglobin Concent 32.0, Red Cell Distribution Width 13.0, Calcium Level 8.5, Aspartate Amino Transf (AST/SGOT) 17, Alanine Aminotransferase (ALT/SGPT) 15, Alkaline Phosphatase 68, Total Bilirubin 0.2, Total Protein 6.5, Albumin 2.7 L ИРИНА ROMERO MD December 03, 2018 12:12
--- NOTE | 2018-12-03 13:42 | IPN ---
CARDIOLOGY PROGRESS NOTE (covering for Dr. Gray): DATE: 12/03/2018 SUBJECTIVE: The patient's major complaint today remains headache, which has been persistent since this morning. She has been given medications by her attending physician. Today, she has remained free of any further retrosternal chest pressure or lightheadedness customarily associated with her bouts of paroxysmal atrial fibrillation. She has been up in the room to the bathroom with only minor lightheadedness. Denies shortness of breath and has slept fairly well, though she did not have her CPAP with her last evening. Remains free of further lateralizing neurological symptoms. Prior left arm numbness had resolved. Fortunately, her CT scan yesterday was benign. No bleeding complications on her current oral anticoagulation. OBJECTIVE: Obese, middle-aged woman lay comfortably with the head of bed elevated 30 degrees. No pallor or cyanosis. Heart rate 56 beats per minute and regular. Blood pressure 126/76 supine, dropping to 108/70 sitting and 90/60 standing (asymptomatic). Respiratory rate 18. Oxygen saturation 97% on room air. Weight 243 pounds. Height 65 inches. BMI 40.4. Normal oral moisture. Trachea midline. Neck veins appear to be upper limits of normal at 3-4 cm above the sternal angle. Increased anteroposterior chest diameter with fair chest expansion. Good air entry over both lung luis with no abnormal pulmonary adventitious sounds. Apical impulse not palpable. Heart sounds somewhat distant. No audible murmur or gallop. Normal carotid upstrokes with normal volume and no bruits. Obese, soft abdomen. Mostly nonpitting swelling of both lower legs. 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 No further bouts of atrial fibrillation even off her on sotalol antiarrhythmic therapy. EKG: Serial studies were reviewed and have shown sinus bradycardia as low as 47 bpm. Left atrial conduction disturbance with diffuse ST/T wave abnormalities with QT prolongation. These appear to be slightly less prominent today than on admission. LABORATORY DATA: Blood work today showed hemoglobin of 11, white blood cell count was normal at 6.3, normal platelet count. Her potassium was somewhat soft today, so her chlorthalidone was withheld and she was given two doses of potassium chloride. Her magnesium level was normal at 1.8. BUN today was up from 16 yesterday to 27, creatinine was normal at 1. Fasting glucose today 93. Liver function studies were normal. Serial Troponin I levels were negative. Albumin 2.7. Chest x-ray: Reviewed independently portable upright study from the emergency room shows heart size upper limits of normal for this technique. Thoracic aorta was slightly tortuous but normal in size. Pulmonary vasculature showed slightly plump vessels but no interstitial infiltrate or pleural effusion. Chest CT angiography: Study performed yesterday was reviewed independently: This confirmed at least a moderately dilated left atrium, left ventricle was upper limits of normal without obvious left ventricle hypertrophy. Right heart chambers were at least mildly dilated. Pulmonary trunk upper limits of normal. IVC was upper limits of normal. No pericardial effusion. This showed no evidence of pulmonary embolism. Normal thoracic aortic diameters. Slight atelectasis in the lingular lobe but no localized infiltrate, pleural effusion or pneumothorax. IMPRESSION/PLAN: 1. Paroxysmal atrial fibrillation: Likely on the basis of underlying obesity, hypertension and obstructive sleep apnea. Recent interrogation of her implanted loop recorder showed frequent bouts of atrial fibrillation despite her prior ablation procedure and sotalol antiarrhythmic therapy. Observed rates were relatively rapid and from the patient's description quite symptomatic. Her sotalol has been discontinued. In light of her paroxysmal atrial fibrillation with rapid ventricular sponsor, we have elected to start her on digoxin with 0.5 mg today and then 0.25 mg daily. Her metoprolol succinate, which she has not received because of hold parameters, has been converted to metoprolol tartrate 25 mg by mouth every 6 hours to hold for heart rate less than 60. We are hoping to monitor her for an additional 24-48 hours in hopes of defining a dose of metoprolol she will tolerate. Remains on oral anticoagulation. In light of the subtle drop in her hemoglobin from her admission, a followup complete blood count will be obtained tomorrow. 2. Sinus bradycardia: Has a relatively soft heart rate even on low-dose sotalol. As mentioned above, we are uncertain of how much beta blockade she will actually tolerate. Hopefully a permanent pacemaker can be avoided at her young age. She has agreed to allow us to monitor her for an additional 24-48 hours. 3. Abnormal EKG: Left atrial conduction disturbance in keeping with her echocardiographic and CT scan findings. ST/T wave abnormalities likely related to LV strain with her obesity and hypertension. These were clearly aggravated by her sotalol antiarrhythmic therapy. With her impressive prolonged QT interval, her sotalol has been discontinued (it had been ineffective in preventing bouts of atrial fibrillation anyway). Fortunately, she has been free of anginal chest pain as long as she does not have a bout of atrial fibrillation with rapid ventricular response. Serial Troponin I levels are negative. Repolarization abnormalities as stated appear to be improving. 4. Hypertensive heart disease (benign without heart failure): No symptoms or signs of congestion. Some transient lightheaded earlier today getting up out of bed. Has impressive orthostatic drop on examination now with evidence of prerenal azotemia. Her chlorthalidone has been discontinued and in light of her hypokalemia she has received two doses of 40 mEq of KCl. Followup chemistry will be obtained in the morning. 5. Obesity (BMI 40.4)/obstructive sleep apnea/cor pulmonale (chronic): Pulmonary hypertension and right heart enlargement may well be partially related to her left ventricular diastolic dysfunction but I am convinced her obesity and obstructive sleep apnea only recently started on CPAP therapy, has been the chief problem. We have discussed the importance of weight reduction and compliance with her CPAP to help reduce bouts of atrial fibrillation in the future. I will continue to follow her over the weekend for Dr. Gray.
--- NOTE | 2018-12-03 15:12 | ECGEPIP ---
Stationary ECG Study [facility] Test Date: 2018-12-03 Pat Name: ROSHNI SILVER Department: Room: [place] [address] Gender: F Chest Painting Leader: EUGENE : 1960 Requested By: Liz Gray Order Number: [id number] Reading MD: Jason Crowley Measurements Intervals [place] Rate: 54 P: 51 [place]: 164 QRS: 14 QRSD: 102 T: 0 QT: 262 QTc: 250 Interpretive Statements Sinus bradycardia LA conduction disturbance Diffuse ST/T-wave abnormalities with QT prolongation Not significantly changed from earlier the same day. Electronically Signed On 12-03-2018 15:12:16 EDT by Jason Crowley
--- NOTE | 2018-12-03 15:13 | ECGEPIP ---
Stationary ECG Study [facility] Test Date: 2018-12-03 Pat Name: ROSHNI SILVER Department: Room: [place] [address] Gender: F Seed Specialist: EUGENE : 1960 Requested By: ИРИНА ROMERO Order Number: [id number] Reading MD: Jason Crowley Measurements Intervals [place] Rate: 47 P: 60 [place]: 166 QRS: 13 QRSD: 97 T: 9 QT: 467 QTc: 415 Interpretive Statements SINUS BRADYCARDIA NONSPECIFIC T-WAVE ABNORMALITY Abnormalities slightly improved from the previous day. Electronically Signed On 12-03-2018 15:13:18 EDT by Jason Crowley
[2018-12-03 16:00] VITALS: BP 112/74
[2018-12-03] MEDS: SLF 3 ML SYR IV SCH ×2 (16:46→21:32)
--- NOTE | 2018-12-03 17:35 | ECGEPIP ---
Stationary ECG Study [facility] - ED Test Date: 2018-12-02 Pat Name: ROSHNI SILVER Department: Room: - Gender: F Vest Tailor: TONI : 1960 Requested By: Renae Lopez Order Number: [id number] Reading MD: Renae Lopez Measurements Intervals [place] Rate: 56 P: 23 [place]: 170 QRS: 5 QRSD: 105 T: 0 QT: 512 QTc: 495 Interpretive Statements SINUS BRADYCARDIA MODERATE ST DEPRESSION PROLONGED QT INTERVAL Electronically Signed On 12-03-2018 17:35:24 EDT by Renae Lopez
[2018-12-03 20:00] VITALS: BP 126/58
[2018-12-03 23:59] VITALS: BP 115/54
[2018-12-04] VITALS (7 sets, daily range): BP systolic 106–131; BP diastolic 51–70
[2018-12-04 05:19] LABS: HEMATOCRIT 35.9 % (36.0-47.0); HEMOGLOBIN 11.6 g/dl (12.0-15.5); MEAN CORPUSCULAR HEMOGLOBIN 28.1 pg (27.0-33.0); MEAN CORPUSCULAR HGB CONC 32.3 g/dl (32.0-36.5); MEAN CORPUSCULAR VOLUME 86.9 fl (80.0-96.0); PLATELET COUNT, AUTOMATED 248 10^3/uL (150-450); RED BLOOD COUNT 4.13 10^6/uL (4.00-5.40)
[2018-12-04] MEDS: METOPROLOL TART 25 MG TABLET PO SCH ×3 (05:31→18:00)
[2018-12-04] MEDS: SLF 3 ML SYR IV SCH ×3 (05:31→20:37)
[2018-12-04 05:50] LABS: ALBUMIN 2.6 GM/DL (3.2-5.2); BLOOD UREA NITROGEN 19 MG/DL (7-18); CALCIUM LEVEL 8.4 MG/DL (8.5-10.1); CARBON DIOXIDE LEVEL 29 MEQ/L (21-32); CHLORIDE LEVEL 107 MEQ/L (98-107); CREATININE FOR GFR 0.82 MG/DL (0.55-1.30); GLOMERULAR FILTRATION RATE > 60.0 (>51); GLUCOSE, FASTING 93 MG/DL (70-100); PHOSPHORUS LEVEL 2.5 MG/DL (2.5-4.9); POTASSIUM SERUM 3.9 MEQ/L (3.5-5.1); SODIUM LEVEL 141 MEQ/L (136-145)
[2018-12-04] MEDS ORDERED: MIRALAX *UNIT DOSE* 17GM PACKET PO PRN (08:15)
[2018-12-04] MEDS: DIGOXIN 0.25 MG TAB PO SCH ×2 (09:00→12:04)
--- NOTE | 2018-12-04 09:11 | IPNPDOC ---
Subjective Date Seen The patient was seen on 12/04/18. Subjective Chief Complaint/HPI Last night pateint had an episode of mild gum bleeding which lasted for about an hour. She tells me she has been seeing a dentist and is in the process of getting all her teeth pulled. However she has never had any gum bleeding before. No bleeding from any other site. No further episodes of chest elsi or numbess of her arms and hands. Telemetry with sinus taty no episodes of Afib. No cough or phlegm. Has constipation. Objective Physical Examination General Exam: Positive: Alert, Cooperative, No Acute Distress Eye Exam: Positive: PERRLA, Conjunctiva & lids normal, EOMI; Negative: Sclera icteric ENT Exam: Positive: Atraumatic, Mucous membr. moist/pink, Pharynx Normal Neck Exam: Positive: Supple; Negative: JVD, thyromegaly Chest Exam: Positive: Clear to auscultation, Normal air movement Heart Exam: Positive: Bradycardic, Regular Rhythm, Normal S1, Normal S2; Negative: Gallops, Murmurs, Rubs Telemetry: Positive: Sinus, Bradycardia Abdomen Exam: Positive: Normal bowel sounds, Soft; Negative: Tenderness, Hepatospenomegaly Extremity Exam: Negative: Clubbing, Cyanosis, Edema Skin Exam: Positive: Nl turgor and temperature; Negative: Rash, Breakdown Neuro Exam: Positive: Normal Speech, Strength at 5/5 X4 ext, Normal Tone Assessment /Plan Assessment This is a 58-year-old female with PMH of history of paroxysmal atrial fi brillation s/p ablation in jul 2018, Coronary artery disease as above, transesophageal echocardiogram before ablation that was essentially normal, hypertension, Dyslipidemia, Obesity, Obstructive sleep apnea on CPAP, Remote history of 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 She was noted to have sinus bradycardia with QTc prolongation in EKG. However the monitor in the ED showed several short runs of Afib. The ablation procedure was initially successful. She was started on sotalol 80 mg twice a day. Starting approximately September, though, she reports episodes of palpitations that have been increasing in frequency and as of lately, she reports virtually daily palpitations. They do occur with variable duration that could be anywhere from a few minutes up to several hours. Today she was woken up early this morning by sensation of palpitations that spontaneously resolved At that time she had bilateral numbness of the hands. She does have history of carpal tunnel so she though it was the carpal tunnel syndrome. The riight arm and hand got bettr but the left arm continued to be heavy and numb. Then later in the morning hours she not only had palpitations but also sensation of pressure behind her sternum. She said it was a sensation like she swallowed a foreign body. Along with that she was dizzy and nauseous. After it was present for several hours, she decided to come to the emergency room. While in the emergency room, she felt not only discomfort but there was also associated tingling and numbness in her left upper extremity. While the in the emergency room (ER), she had evaluation that included CT angiography of the chest, chest x-ray and CT of the head. They were all negative. There were several episodes of atrial fibrillation that were short-lived that were evidenced on a monitor. It was decided to admit her for QTc prolongation and adjustment of her cardiac meds. Sinus bradycardia with prolonged QTc stopped sotalol. Now QTc improved. Paroxysmal atrial fibrillation Prolonged QT on sotalol Status post ablation July 2018, but reported frequent episodes of atrial fibrillation with RVR Interrogation of implantable loop recorder showed 39 episodes since its implantations in May 2018 2.4% of the time she has been in A fib. Discussed with Dr Crowley will start the patient on digoxin and start metoprolol tartarate 25 q6 if tolerated by pulse. continue Xarelto Pateint will probably need repeat ablation. Chest pain. Non anginal , cardiac markers negative. could be due to afib with rvr which she had an episode yesterday morning which was seen in her loop recorder vs musculoskeletal Grade 2 diastolic dysfunction in echo no history of heart failure stopped chlorthalidone Hypertension but currently her Bp is low normal. Obstructive sleep apnea Continue CPAP with patient's home settings Hypokalemia Repleted Morbid Obesity. Therapeutic lifestyle changes encouraged Dietary modifications Musculoskeletal pain Patient has several tender points and her skin is extremely sensitive. May have underlying fibromyalgia. continue cyclobenzaprine. DVT prophylaxis Fully anticoagulated on Xarelto Plan/VTE VTE Prophylaxis Ordered?: Yes VS, I&O, 24H, Fishbone Vital Signs/I&O Vital Signs Date Time Temp Pulse Resp B/P (MAP) Pulse Ox O2 Delivery O2 Flow Rate FiO2 12/04/18 08:00 97.6 54 18 119/56 (77) 96 12/04/18 02:00 Room Air I&O- Last 24 Hours up to 6 AM 12/04/18 06:00 Intake Total 1380 ml Output Total 2400 ml Balance -1020 ml Laboratory Data 24H LABS Laboratory Tests 2 12/04/18 05:01: Nucleated Red Blood Cells % (auto) 0.0, Blood Urea Nitrogen 19H, Creatinine 0.82, Sodium Level 141, Potassium Level 3.9, Chloride Level 107, Carbon Dioxide Level 29, Anion Gap 5L, Glomerular Filtration Rate > 60.0, Calcium Level 8.4L, Phosphorus Level 2.5, Albumin 2.6L CBC/BMP Laboratory Tests 12/04/18 05:01 Red Blood Count 4.13, Mean Corpuscular Volume 86.9, Mean Corpuscular Hemoglobin 28.1, Mean Corpuscular Hemoglobin Concent 32.3, Red Cell Distribution Width 13.0, Anion Gap 5 L ИРИНА ROMERO MD December 04, 2018 09:11
[2018-12-04] MEDS: FLUoxetine 20 MG CAP PO SCH (09:31)
[2018-12-04] MEDS: GABAPENTIN 100 MG CAP PO SCH ×3 (09:31→20:36)
[2018-12-04] MEDS: SENOKOT S TAB PO SCH (09:31)
[2018-12-04] MEDS: RIVAROXABAN 20 MG TAB (XARELTO) PO SCH (09:31)
[2018-12-04] MEDS: ACETAMINOPHEN TAB 650MG DOSE (2X325MG) PO PRN (16:08)
--- NOTE | 2018-12-04 17:40 | IPN ---
DATE: 12/04/2018 CARDIOLOGY PROGRESS NOTE COVERING FOR DR. ELKINS: SUBJECTIVE: Patient claims to be feeling fairly well. Has been up ambulating without lightheadedness, palpitations or chest pressure. OBJECTIVE: Obese, middle-aged woman lying comfortably at this time. Heart rate 56 beats per minute and regular, blood pressure 125/66, respiratory rate 16, oxygen saturation 99% on room air. Afebrile. Her weight has remained stable. 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 Fortunately, no further bout of atrial fibrillation. LABORATORY DATA: Blood work today shows hemoglobin 11.6. Normal white blood cell count and platelet count. Chemistry confirms a normal serum potassium of 3.6 and improved BUN down from 27 to 19 today. Creatinine also improved 0.8. Fasting glucose 93. IMPRESSION/PLAN: 1. Paroxysmal atrial fibrillation: Gratifyingly has remained free of recurrent atrial tachyarrhythmia even off sotalol antiarrhythmic therapy. Off this agent, her heart rate has improved, but she has not been able to receive any doses of low-dose metoprolol because of hold parameter for heart rate less than 60. Is receiving digoxin 0.25 mg daily. That might hopefully, at least contribute, to control of her ventricular response should she develop a recurrent atrial tachyarrhythmia. As discussed with Dr. Elkins, the plan is to have more definitive further radiofrequency ablation. 2. Sinus bradycardia: No significant bradyarrhythmias off beta marlena therapy. Has been ambulating without lightheadedness. 3. Abnormal EKG: No followup study today, but one has been requested to reassess her QT interval. Has been free of chest pressure, as mentioned above. 4. Hypertensive heart disease (benign without heart failure): Current blood pressure is adequately controlled. Presently off her chlorthalidone because of electrolyte disturbance. Her serum potassium has normalized. For the time being, we will simply monitor her blood pressure. 5. Obesity (BMI 40.4)/obstructive sleep apnea/cor pulmonale (chronic): Likely contributing to her risk of recurrent atrial fibrillation. We have discussed the importance of weight reducing efforts. Dr. Elkins will resume primary care of her cardiology problems tomorrow, but I suspect she will be able to be discharged home by that time.
[2018-12-05 04:00] VITALS: BP 124/59
[2018-12-05] MEDS: METOPROLOL TART 25 MG TABLET PO SCH ×5 (06:00→13:33)
[2018-12-05] MEDS: SLF 3 ML SYR IV SCH ×2 (06:21→14:00)
[2018-12-05 08:00] VITALS: BP 122/60
[2018-12-05] MEDS: FLUoxetine 20 MG CAP PO SCH (08:42)
[2018-12-05] MEDS: RIVAROXABAN 20 MG TAB (XARELTO) PO SCH (08:44)
[2018-12-05] MEDS: GABAPENTIN 100 MG CAP PO SCH (08:44)
[2018-12-05] MEDS: DIGOXIN 0.25 MG TAB PO SCH (08:45)
[2018-12-05] MEDS: SENOKOT S TAB PO SCH (08:46)
--- NOTE | 2018-12-05 11:14 | ECGEPIP ---
Stationary ECG Study [facility] Test Date: 2018-12-05 Pat Name: ROSHNI SILVER Department: Room: [place] [address] Gender: F Acting Manager: LILLIAN : 1960 Requested By: Jason Crowley Order Number: [id number] Reading MD: Griselda Neal Measurements Intervals [place] Rate: 58 P: 51 [place]: 172 QRS: 16 QRSD: 103 T: 2 QT: 440 QTc: 432 Interpretive Statements SINUS BRADYCARDIA NONSPECIFIC T-WAVE ABNORMALITY Electronically Signed On 12-05-2018 11:14:27 EDT by Griselda Neal
[2018-12-05] MEDS ORDERED: DIGO0.25 PO (11:19)
[2018-12-05] MEDS ORDERED: METO1TAB7 PO (11:19)
[2018-12-05] MEDS ORDERED: PERCOCET 5MG/325MG TAB PO ONE (11:30)
--- NOTE | 2018-12-05 11:31 | IPNPDOC ---
Text Note Date of Service The patient was seen on 12/05/18. NOTE Ms. Newman is doing well this morning, she feels good. She doesn't have any palpitations on bedside rounds this morning. She is not SOB, she doesn't really offer up any complaints. ROS: General: Has slept well overnight, no headaches right now Cardiac: No palpitations or CP, no syncope or presyncope episodes Resp: No SOB or wheezing/cough GI/: No nausea or vomiting, no change in bowel habits or urinary habits Extremities: No swelling that is she is concerned for Physical Exam: VS Please see below General: This is a 58 year old female appearing her stated age, morbidly obese, in NAD, comfortable on exam HEENT: EOMI, moist mucus membranes, clear pharynx Cardiac: No rubs or gallops, normal s1 and s2 with systolic +2 murmur heard best at right upper sternal border representing aortic sclerosis, no S3 or S4 appreciated Abdomen: Obese, soft, non distended, no hepatosplenomegaly, no masses, no pain to palpation, nabsx4, no rebound ridgity or guarding Assessment and Plan: Ms. Newman is a 58 yo female who presented to the ED with complaints of chest heaviness and palpitations who was found to have been in a. fib. -Paroxysmal A. Fib RVR -Ms Newman was seen again a couple hours after bedside rounds when nursing staff alerted us to the pt having chest pain again, on the repeat physical exam it was noted that the chest pain was substernal and was worsened with physical manipulation of the sternal area and with deep inspiration, she denied n/v, diaphoresis, flushing, headache, jaw or arm pain, no changes in vision but slight b/l temporal h/a, some radiation of sharp like pain to back between shoulder blades, but she states this has happened in the past before. She is anticoagulated so a PE is less likely. On exam there was no pain in the back at all. Her v/s were stable, she was in NAD clinically on physical exam, abdominal exam did not demonstrate pain to deep palpation nor bruits, there was no JVD and heart exam demonstrated RRR with 2+ systolic right parasternal murmur with a normal s1 and s1, lung luis were clear throughout. An EKG done at the time was compared to admitting EKG's and did not show marked difference, no concerning ST-T wave abnormalities. This is likely non-cardiac in nature, we will treat her pain. She is going to benefit from re-ablation once d/c and we will arrange this on follow up once discharged, she should have cardiology appt 7 days after d/c. She can continue Digoxin .125 mcg daily and Toprol XL 25 mg daily until then. Would not suggest restarting for Sotalol for QT prolongation issues she has had in the past, certainly not with a thiazide diuretic as this could increase the risk of electrolyte abnormality and potentiate bradycardia and Torsades. She should continue her anticoagulation as well. She is clear to be d/c from a Cardiac standpoint today, please let us know should you have any further questions regarding her care and we would be happy to revisit her. Thank you for the consultation for Ms Newman. A-FIB/CHADSVASC A-FIB History Current/History of A-Fib/PAF?: Yes VS,Fishbone, I+O VS, Fishbone, I+O Vital Signs Date Time Temp Pulse Resp B/P (MAP) Pulse Ox O2 Delivery O2 Flow Rate FiO2 12/05/18 08:45 65 12/05/18 08:00 97.3 17 122/60 (80) 12/05/18 04:00 100 12/04/18 18:00 Room Air I&O- Last 24 Hours up to 6 AM 12/05/18 06:00 Intake Total 420 ml Output Total 1450 ml Balance -1030 ml GME ATTESTATION GME ATTESTATION My faculty preceptor for this patient encounter was physically present during the encounter and was fully available. All aspects of the patient interview, examination, medical decision making process, and medical care plan development were reviewed and approved by the faculty preceptor. The faculty preceptor is aware and concurs with the plan as stated in the body of this note and will attest to such by his/her cosignature. VINI DHILLON DO December 05, 2018 11:31
--- NOTE | 2018-12-05 11:33 | ECGEPIP ---
Stationary ECG Study [facility] Test Date: 2018-12-05 Pat Name: ROSHNI SILVER Department: Room: [place] [address] Gender: F Call Center Assistant: : 1960 Requested By: Liz Gray Order Number: [id number] Reading MD: Griselda Neal Measurements Intervals [place] Rate: 61 P: 42 WV: 172 QRS: 15 QRSD: 101 T: 8 QT: 429 QTc: 434 Interpretive Statements SINUS RHYTHM NONSPECIFIC ST & T-WAVE ABNORMALITY SLIGHTLY MORE MARKED C/W 12/05/18 RATE FASTER Electronically Signed On 12-05-2018 11:32:38 EDT by Griselda Neal
[2018-12-05 12:00] VITALS: BP 124/78
[2018-12-05 13:33] VITALS: BP 140/90
[2018-12-05 16:00] VITALS: BP 116/62
--- NOTE | 2018-12-05 16:37 | DS.PDOC ---
Discharge Summary General Date of Admission December 02, 2018 at 15:19 Date of Discharge december 05, 2018 Attending Physician: CELINA SENIOR MD Specialist/Consultants Involve: Liz Gray MD Discharge Summary PROCEDURES PERFORMED DURING STAY: [None]. ADMITTING DIAGNOSES: Pafib with RVR and bradycardia DISCHARGE DIAGNOSES: 1. Pafib with RVR and bradycardia 2. HTN 3. Morbid obesity and KEMI COMPLICATIONS/CHIEF COMPLAINT: chest pain and left arm numbness and heaviness HISTORY OF PRESENT ILLNESS: Patient is a 58-year-old female, past medical history significant for persistent atrial fibrillation status post atrial fibrillation ablation July 2018 on anticoagulation therapy with Xarelto, status post implantable loop recorder, morbid obesity, obstructive sleep apnea, valvular heart disease, presenting to the emergency room on account of chest pain. Patient describes chest pain which feels like an indigestion, occurring with intermittent frequency every other day, and states this is her second visit with the same problem this week. In Jul of this year. Patient had ablation at [facility] and feels it worked, but reports she still has intermittent breakthrough atrial fibrillation with rapid ventricular response. This morning she woke up at 1 AM feeling like she was in atrial fibrillation. This persisted until about 8 AM when she woke up and took her medications with gradual subsiding of symptoms. She did, however, get a call from [facility] asking her if she was okay because her heart rate was elevated She describes chest pain as a heaviness on the left rib cage with radiation to her arm with left arm tingling and heaviness. She denied nausea, chills, shortness of breath but felt breathing was impaired by symptoms. On admit CTA completed to rule out pulmonary emboli was negative. There was no effusion or any acute cardiopulmonary process. Bedside telemetry also was unremarkable and showed heart rate persistently in sinus bradycardia. Patient states she has been compliant with CPAP use at night. She admits not using CPAP on nights when she sleeps with her grandkids. Admission EKG showed sinus bradycardia with prolonged QT. EKG was not available for review at time of assessment. Troponin was negative, and potassium was abnormal at 3.3. HOSPITAL COURSE: After admission, she was consulted with [facility] [employer] Dr Tafoya.her Sotalol was discontinued due to prolonged QT. Her loop recorder was integrated and found to have multiple episodes of rapid afib. Digoxin was added to control her heart rate. Metoprolol was on hold due to bradycardia. she had repeated echo which is normal; on discharge she is NSR. Per Dr tafoya, she will be discharged home with digoxin and metoprolol. she is going to follow with [facility] [employer] and likely need ablation again. DISCHARGE MEDICATIONS: Please see below. ALLERGIES: Please see below. PHYSICAL EXAMINATION ON DISCHARGE: VITAL SIGNS: Please see below. GENERAL: AA Ox3, not in acute distress HEENT: Atraumatic NECK: no JVD CARDIOVASCULAR EXAMINATION: s1 s2 regular no murmur RESPIRATORY EXAMINATION: lungs clear, no wheezing no rales ABDOMINAL EXAMINATION: soft BS positive, non tender EXTREMITIES: no edema SKIN: no rash NEUROLOGICAL EXAMINATION: non focal PSYCHIATRIC EXAMINATION: no acute psychosis LABORATORY DATA: Please see below. IMAGING: chest xay, head CT, CTA of chest and echocardiogram PROGNOSIS: fair ACTIVITY: as tolerated DIET: cardiac diet DISCHARGE PLAN: discharge home DISPOSITION: . DISCHARGE INSTRUCTIONS: will take digoxin and metoprolol ITEMS TO FOLLOWUP ON ON OUTPATIENT: 1. Dr Tafoya DISCHARGE CONDITION: stable TIME SPENT ON DISCHARGE: Greater than 35 minutes. Vital Signs/I&Os Vital Signs Date Time Temp Pulse Resp B/P (MAP) Pulse Ox O2 Delivery O2 Flow Rate FiO2 12/05/18 13:33 140 140/90 12/05/18 12:00 97.9 17 96 12/04/18 18:00 Room Air I&O- Last 24 Hours up to 6 AM 12/05/18 06:00 Intake Total 420 ml Output Total 1450 ml Balance -1030 ml Discharge Medications Scheduled Chlorthalidone (Chlorthalidone) 25 Mg Tablet, 25 MG PO DAILY, (Reported) Digoxin (Digoxin) 250 Mcg Tablet, 0.125 MG PO DAILY Fluoxetine Hcl (Fluoxetine HCl) 40 Mg Cap, 40 MG PO DAILY, (Reported) Lactobacillus Combo No.10 (Probiotic) 1 Each Capsule, 1 CAP PO DAILY, (Reported) Metoprolol Succinate (Metoprolol Succinate) 50 Mg Tab, 25 MG PO DAILY PATIENT WAS JUST RESTARTED ON THIS MED 2 WEEKS AGO Rivaroxaban (Xarelto) 20 Mg Tablet, 20 MG PO DAILY, (Reported) Scheduled PRN Acetaminophen (Tylenol Extra Strength) 500 Mg Tablet, 1,000 MG PO TID PRN for PAIN, (Reported) Allergies Coded Allergies: No Known Allergies (Unverified , 12/02/18) CELINA SENIOR MD December 05, 2018 16:37
== END 2018-12-05 16:48 | disposition home or self-care (01) ==
LOC: M ED 10:12 → INTOOBSV 15:19 → M ED INP 15:19 → M PCU 17:02
PROVIDERS: ADMIT Internal Medicine Nephrology; ATTEND Internal Medicine Nephrology
DX: I48.0 Paroxysmal atrial fibrillation (principal); R00.1 Bradycardia, unspecified; R94.31 Abnormal electrocardiogram [ECG] [EKG]; E66.01 Morbid (severe) obesity due to excess calories; I11.9 Hypertensive heart disease without heart failure; G47.33 Obstructive sleep apnea (adult) (pediatric); Z79.01 Long term (current) use of anticoagulants; Z79.899 Other long term (current) drug therapy
CPT/HCPCS: 36415; 70450; 71045; 71275; 80048; 80053; 80069; 82550; 82553; 83735; 84484; 85025; 85027; 85610; 85730; 93005; 93041; 93306; 94760; 96361; 96374; 99285; J1885; Q9967

== ENCOUNTER → 2019-02-07 | Outpatient (CLI) | payer BC, OTHER ==
[~2019-02-07] MED LIST changes: +ACET-897 PO; +CHLO125TA PO; +CVS1CAP2 PO; +DIGO0.25 PO; +SOTA80TA2 PO
--- NOTE | 2019-02-08 04:29 | REP ---
Clinical: Osteoarthritis. Pain. Technique: AP, lateral, bilateral oblique and sunrise views of the right and left knee. Findings: Right knee demonstrates mild subchondral sclerosis along the tibial plateau and posterior patellar margin with minimal elements of joint space narrowing and subtle spurring along the medial tibiofemoral compartment noted. No acute fracture or dislocation. Small suprapatellar effusion cannot be excluded. Left knee demonstrates subchondral sclerosis along the tibiofemoral and patellofemoral joint spaces as well as medial joint space spurring and spurring along the superior aspect of the patella with associated joint space narrowing. Anterior swelling is appreciated and suprapatellar effusion cannot be excluded. No acute fracture or dislocation. Impression: Mild/early moderate osteoarthritic degenerative changes (left greater than right). Electronically Signed by Gabriel Uribe MD 02/08/2019 04:21 A
== END ==
LOC: M RAD 07:36
PROVIDERS: ATTEND Physician Assistant Medical
DX: M17.11 Unilateral primary osteoarthritis, right knee (principal)

== ENCOUNTER → 2019-02-07 | Outpatient (CLI) | payer BC, OTHER ==
[~2019-02-07] MED LIST changes: +METHACHOLINE KIT (J7674) INH ONE
--- NOTE | 2019-02-07 08:41 | PFTRPT ---
Height: 65.00 Inches Weight: 238.00 Lbs BSA: 2.13 Diagnosis: R05 DATE OF STUDY: 02/07/2019 ORDERED BY: LIN Yeager INTERPRETATION: Study of excellent technical quality. Under protocol, methacholine was administered. Even after a maximal dose of 25 mg or 188.875 CDUs, no provocation dose ever achieved. IMPRESSION: Negative methacholine challenge study. MTDD
== END ==
LOC: M CARPUL 07:34
PROVIDERS: ATTEND Nurse Practitioner Family
DX: R05 Cough (principal)
CPT/HCPCS: 94070; J7674

== ENCOUNTER → 2019-03-16 | Outpatient (CLI) | payer BC, OTHER ==
[~2019-03-16] MED LIST changes: -DIGO0.25 PO; +DIGO0.253 PO; +ELIQ5TAB PO; -METHACHOLINE KIT (J7674) INH ONE; +PROBCAP14 PO
[2019-03-16 11:25] LABS: HEMATOCRIT 43.2 % (36.0-47.0); HEMOGLOBIN 13.4 g/dl (12.0-15.5); MEAN CORPUSCULAR HEMOGLOBIN 28.1 pg (27.0-33.0); MEAN CORPUSCULAR VOLUME 90.6 fl (80.0-96.0); PLATELET COUNT, AUTOMATED 270 10^3/uL (150-450); RED BLOOD COUNT 4.77 10^6/uL (4.00-5.40); WHITE BLOOD COUNT 11.6 10^3/uL (4.0-10.0)
[2019-03-16 11:50] LABS: BLOOD UREA NITROGEN 25 MG/DL (7-18); CALCIUM LEVEL 9.2 MG/DL (8.5-10.1); CARBON DIOXIDE LEVEL 30 MEQ/L (21-32); CHLORIDE LEVEL 103 MEQ/L (98-107); CREATININE FOR GFR 0.94 MG/DL (0.55-1.30); GLOMERULAR FILTRATION RATE > 60.0 (>51); GLUCOSE, FASTING 70 MG/DL (70-100); POTASSIUM SERUM 4.7 MEQ/L (3.5-5.1); SODIUM LEVEL 138 MEQ/L (136-145)
== END ==
LOC: M LAB 09:27
PROVIDERS: ATTEND Internal Medicine Cardiovascular Disease
DX: I48.91 Unspecified atrial fibrillation (principal)

== ENCOUNTER 2019-03-23 10:48 | Inpatient (IN) | payer BC, OTHER ==
[~2019-03-23] VITALS: Ht 165.1 cm; Wt 102.7 kg
[~2019-03-23 10:48] MED LIST changes: -ELIQ5TAB PO; +MAALOX 30 ML SUSP *UDC PO PRN; -PROBCAP14 PO
[2019-03-23] MEDS ORDERED: SOTA80TA2 PO (10:58)
[2019-03-23] MEDS ORDERED: METO1TAB7 PO (10:58)
[2019-03-23] MEDS ORDERED: ELIQ5TAB PO (10:58)
--- NOTE | 2019-03-23 11:30 | REP ---
Clinical: Acute chest pain. Comparison: 12/02/2018. Findings: Subtle linear plate-like atelectasis in the left lower lobe suggested. Mediastinum and cardiac silhouette are stable. Loop recorder again identified. No effusion. No pneumothorax. Skeletal structures intact. Impression: Mild plate-like atelectasis in the left lower lobe. Electronically Signed by Gabriel Uribe MD 03/23/2019 11:22 A
[2019-03-23] MEDS: METOPROLOL 5 MG/5 ML VIAL IV SCH ×6 (11:37→14:07)
[2019-03-23 12:05] LABS: BASO % 0.3 % (0.0-1.0); EOS # 0.1 10^3/uL (0.0-0.5); EOS % 1.1 % (0.0-3.0); HEMATOCRIT 38.9 % (36.0-47.0); HEMOGLOBIN 12.3 g/dl (12.0-15.5); LYMPH # 1.6 10^3/uL (1.5-5.0); LYMPH % 15.1 % (24.0-44.0); MEAN CORPUSCULAR HEMOGLOBIN 27.5 pg (27.0-33.0); MEAN CORPUSCULAR HGB CONC 31.6 g/dl (32.0-36.5); MEAN CORPUSCULAR VOLUME 86.8 fl (80.0-96.0); MONO # 0.8 10^3/uL (0.0-0.8); MONO % 7.2 % (0.0-5.0); NEUTROPHILS # 8.2 10^3/uL (1.5-8.5); PLATELET COUNT, AUTOMATED 216 10^3/uL (150-450); RED BLOOD COUNT 4.48 10^6/uL (4.00-5.40); WHITE BLOOD COUNT 10.8 10^3/uL (4.0-10.0)
[2019-03-23 12:29] LABS: BLOOD UREA NITROGEN 11 MG/DL (7-18); CALCIUM LEVEL 8.7 MG/DL (8.5-10.1); CARBON DIOXIDE LEVEL 26 MEQ/L (21-32); CHLORIDE LEVEL 112 MEQ/L (98-107); CK-MB VALUE MASS 2.8 NG/ML (<3.6); CPK CREATINE PHOSPHOKINASE 54 U/L (26-192); CREATININE FOR GFR 0.68 MG/DL (0.55-1.30); GLOMERULAR FILTRATION RATE > 60.0 (>51); GLUCOSE, FASTING 91 MG/DL (70-100); MB/CK RELATIVE INDEX 5.19 (< OR =4); POTASSIUM SERUM 4.3 MEQ/L (3.5-5.1); SODIUM LEVEL 144 MEQ/L (136-145); TROPONIN I 0.87 NG/ML (< 0.10)
[2019-03-23] MEDS ORDERED: METOPROLOL TART 25 MG TABLET PO ONE (13:00)
[2019-03-23 15:26] LABS: CK-MB VALUE MASS 2.1 NG/ML (<3.6); MB/CK RELATIVE INDEX 3.5 (< OR =4); TROPONIN I 0.76 NG/ML (< 0.10)
[2019-03-23] MEDS ORDERED: PROBCAP14 PO (16:28)
--- NOTE | 2019-03-23 18:21 | HPEPDOC ---
General Date of Admission Mar 23, 2019 at 18:01 Date of Service: Mar 23, 2019 Chief Complaint The patient is a 58-year-old female admitted with a reason for visit of AFIB. History of Present Illness 58f hx of afib s/p ablation x2 (most recent yesterday), KEMI on cpap, valvular heart disease, ILR p/w chest pain and palpitations since last night. Pain described as sharp (like I cracked a rib) over her sternum, nonradiating, no provocation. mild sob, dizziness and blurry vision at times. has persisted since midnight last night. In ED found to be in rapid afib 150-160. she was given 25mg of po metoprolol and 6 doses of 5mg iv lopressor without any change. a full ros was performed and negative except as above Home Medications Scheduled Apixaban (Eliquis) 5 Mg Tablet, 5 MG PO BID, (Reported) ON HOLD UNTIL 03/25/19 DUE TO SURGERY Fluoxetine Hcl (Fluoxetine HCl) 40 Mg Cap, 40 MG PO DAILY, (Reported) Lactobacillus Acidophilus (Probiotic) 1 Each Capsule, 1 CAP PO DAILY, (Reported) Metoprolol Succinate (Metoprolol Succinate) 50 Mg Tab.er.24h, 50 MG PO BID, (Reported) Sotalol HCl (Sotalol) 80 Mg Tablet, 80 MG PO BID, (Reported) Scheduled PRN Acetaminophen (Tylenol Extra Strength) 500 Mg Tablet, 1,000 MG PO TID PRN for PAIN, (Reported) Allergies Coded Allergies: No Known Allergies (Unverified , 12/02/18) Family History Significant Family History: Cancer Social History * Smoker: Denies Alcohol: Denies Drugs: denies A-FIB/CHADSVASC A-FIB History Current/History of A-Fib/PAF?: Yes Current PO Anticoag Therapy: Yes Age/Risk Factor Scoring CHADSVASC: CHADSVASC Response (Comments) Value Age Risk Factor Age < 65 years old 0 Gender Risk Factor Female 1 Hx of CHF No 0 Hx of HTN No 0 Hx of Stroke/TIA/or VTE No 0 Hx of Diabetes No 0 Hx of Vascular Disease No 0 Total 1 Treatment Treatment ordered: Apixaban Physical Examination General Exam: Positive: Alert, No Acute Distress Eye Exam: Positive: PERRLA, Conjunctiva & lids normal, EOMI; Negative: Sclera icteric ENT Exam: Positive: Atraumatic, Mucous membr. moist/pink, Pharynx Normal Neck Exam: Positive: Supple; Negative: JVD, thyromegaly Chest Exam: Positive: Clear to auscultation, Normal air movement Heart Exam: Positive: Tachycardic, Irregular Rhythm, Normal S1, Normal S2; Negative: Murmurs, Rubs Telemetry: Positive: Atrial fibrillation, Tachycardia Abdomen Exam: Positive: Normal bowel sounds, Soft; Negative: Tenderness, Hepatospenomegaly Extremity Exam: Positive: Normal pulses; Negative: Clubbing, Cyanosis, Edema Skin Exam: Positive: Nl turgor and temperature; Negative: Breakdown, Lesion Neuro Exam: Positive: Normal Gait, Normal Speech, Cranial Nerves 3-12 NL, Reflexes 2+ Psych Exam: Positive: Mental status NL, Mood NL, Oriented x 3 Vital Signs Vital Signs Date Time Temp Pulse Resp B/P (MAP) Pulse Ox O2 Delivery O2 Flow Rate FiO2 03/23/19 17:15 124/59 (80) 03/23/19 17:03 149 18 97 03/23/19 10:48 97.5 Room Air Laboratory Data Labs 24H Laboratory Tests 2 03/23/19 11:45: Immature Granulocyte % (Auto) 0.3, White Blood Count 10.8H, Red Blood Count 4.48, Hemoglobin 12.3, Hematocrit 38.9, Mean Corpuscular Volume 86.8, Mean Corpuscular Hemoglobin 27.5, Mean Corpuscular Hemoglobin Concent 31.6L, Red Cell Distribution Width 13.2, Platelet Count 216, Neutrophils (%) (Auto) 76.0H, Lymphocytes (%) (Auto) 15.1L, Monocytes (%) (Auto) 7.2H, Eosinophils (%) (Auto) 1.1, Basophils (%) (Auto) 0.3, Neutrophils # (Auto) 8.2, Lymphocytes # (Auto) 1.6, Monocytes # (Auto) 0.8, Eosinophils # (Auto) 0.1, Basophils # (Auto) 0.0, Nucleated Red Blood Cells % (auto) 0.0, Anion Gap 6L, Glomerular Filtration Rate > 60.0, Blood Urea Nitrogen 11, Creatinine 0.68, Sodium Level 144, Potassium Level 4.3, Chloride Level 112H, Carbon Dioxide Level 26, Calcium Level 8.7, Total Creatine Kinase 54, Creatine Kinase MB 2.8, Creatine Kinase MB Relative Index 5.19H, Troponin I 0.87H 03/23/19 13:49: Total Creatine Kinase 60, Creatine Kinase MB 2.1, Creatine Kinase MB Relative Index 3.50, Troponin I 0.76H CBC/BMP Laboratory Tests 03/23/19 11:45 Red Blood Count 4.48, Mean Corpuscular Volume 86.8, Mean Corpuscular Hemoglobin 27.5, Mean Corpuscular Hemoglobin Concent 31.6 L, Red Cell Distribution Width 13.2, Neutrophils (%) (Auto) 76.0 H, Lymphocytes (%) (Auto) 15.1 L, Monocytes (%) (Auto) 7.2 H, Eosinophils (%) (Auto) 1.1, Basophils (%) (Auto) 0.3, Neutrophils # (Auto) 8.2, Lymphocytes # (Auto) 1.6, Monocytes # (Auto) 0.8, Eosinophils # (Auto) 0.1, Basophils # (Auto) 0.0, Calcium Level 8.7, Total Creatine Kinase 54 Assessment/Plan 58f p/w rapid afib ER discussed with cardiology who asked that we not use digoxin or amio not responding to metoprolol s/p 7 doses continue sotalol will try low doses of cardizem bp permitting kemi continue cpap Plan / VTE VTE Prophylaxis Ordered?: Yes COURTNEY ONGUEIRA MD Mar 23, 2019 18:21
[2019-03-23] MEDS ORDERED: NS 500 ML IV ONE (19:00)
[2019-03-23 19:55] VITALS: BP 97/55
[2019-03-23] MEDS ORDERED: APIXABAN 5 MG TAB (ELIQUIS) PO SCH (21:00)
[2019-03-23] MEDS: SOTALOL HCL 80 MG TAB PO SCH (22:35)
[2019-03-24] VITALS (7 sets, daily range): BP systolic 95–119; BP diastolic 51–62
--- NOTE | 2019-03-24 07:01 | ECGEPIP ---
[facility] - ED Test Date: 2019-03-23 Pat Name: ROSHNI SILVER Department: Room: - Gender: Female Boat Hand: KG : 1960 Requested By: Benjaimn Llamas Order Number: [id number] Reading MD: Benjamin Ibarra Measurements Intervals [place] Rate: 138 P: OR: 0 QRS: 11 QRSD: 88 T: -2 QT: 309 QTc: 469 Interpretive Statements ATRIAL FIBRILLATION WITH RAPID VENTRICULAR RESPONSE WITH ABERRANT CONDUCTION OR VENTRICULAR PREMATURE COMPLEXES MINIMAL ST DEPRESSION RHYTHM/RATE CHANGE COMPARED TO 12/05/18 Electronically Signed on 03-24-2019 7:00:29 EDT by Benjamin Ibarra
[2019-03-24] MEDS ORDERED: DEXTROSE 50% 50 ML SYRINGE IV PRN (08:00)
[2019-03-24] MEDS ORDERED: GLUCOSE 4 GM CHEW TABLET PO PRN (08:00)
[2019-03-24] MEDS ORDERED: GLUCAGON FOR INJ 1 MG VIAL (J1610) SC PRN (08:00)
[2019-03-24] MEDS ORDERED: D5W/0.45% SODIUM CHLORIDE 1,000 ML IV SCH (08:00)
[2019-03-24 08:23] LABS: BASO % 0.4 % (0.0-1.0); EOS # 0.2 10^3/uL (0.0-0.5); EOS % 2.4 % (0.0-3.0); HEMATOCRIT 37.3 % (36.0-47.0); HEMOGLOBIN 11.5 g/dl (12.0-15.5); LYMPH # 1.6 10^3/uL (1.5-5.0); LYMPH % 23.2 % (24.0-44.0); MEAN CORPUSCULAR HGB CONC 30.8 g/dl (32.0-36.5); MEAN CORPUSCULAR VOLUME 90.8 fl (80.0-96.0); MONO # 0.5 10^3/uL (0.0-0.8); MONO % 7.3 % (0.0-5.0); NEUTROPHILS # 4.7 10^3/uL (1.5-8.5); NEUTROPHILS % 66.4 % (36.0-66.0); PLATELET COUNT, AUTOMATED 192 10^3/uL (150-450); RED BLOOD COUNT 4.11 10^6/uL (4.00-5.40)
[2019-03-24] MEDS: FLUoxetine 20 MG CAP PO SCH (08:59)
[2019-03-24] MEDS: SOTALOL HCL 80 MG TAB PO SCH ×2 (09:00→20:16)
[2019-03-24 09:05] LABS: BLOOD UREA NITROGEN 14 MG/DL (7-18); CALCIUM LEVEL 8.6 MG/DL (8.5-10.1); CARBON DIOXIDE LEVEL 27 MEQ/L (21-32); CHLORIDE LEVEL 111 MEQ/L (98-107); CK-MB VALUE MASS 1.1 NG/ML (<3.6); CPK CREATINE PHOSPHOKINASE 35 U/L (26-192); CREATININE FOR GFR 0.74 MG/DL (0.55-1.30); GLOMERULAR FILTRATION RATE > 60.0 (>51); GLUCOSE, FASTING 84 MG/DL (70-100); MAGNESIUM LEVEL 2.1 MG/DL (1.8-2.4); MB/CK RELATIVE INDEX 3.14 (< OR =4); POTASSIUM SERUM 3.9 MEQ/L (3.5-5.1); SODIUM LEVEL 142 MEQ/L (136-145); THYROID STIMULATING HORMONE 0.352 uIU/ML (0.358-3.740)
--- NOTE | 2019-03-24 09:06 | IPN ---
DATE OF SERVICE: 03/24/2019 SUBJECTIVE: The patient states that yesterday around midnight that she started to have significant dizziness and lightheadedness which continued until 4:00 p.m. yesterday when she was admitted to the hospital. After receiving three doses of metoprolol, two doses of 5 mg intravenously and 25 mg of metoprolol orally, the patient did have some improvement. She was also given diltiazem 10 mg intravenously at around 6:00 p.m. She is continued on sotalol 80 mg twice daily with some improvement in heart rate to 57, but remains at 115 to 158 over the past 24 hours. The patient says that she was ablated twice in [place] and was advised to hold her Eliquis due to episodes of bleeding and to hold it for two days. She was also advised by the warehouse delivery driver that if she has recurrent episodes she may need a pacemaker on top of her sotalol. Pipeline Dispatcher, Dr. Liz Gray, has been consulted this morning. He will determine the need for transfer to [place] for pacemaker placement or repeat ablation. Overnight, the patient says that her palpitations have subsided. Initially, she felt as if her ribs were breaking in half and today she has no shortness of breath. Her dizziness and lightheadedness has improved. Heart rate has improved to 104 to 108 since midnight with episode of 57. She denies any syncopal episode. She has no recurrent chest pain, dyspnea on exertion. Afebrile overnight. No chills. No cough. No nausea or vomiting. No abdominal pain. OBJECTIVE: Temperature 99, pulse 115, respiratory rate 18, blood pressure 109/52 and 97% on room air. Generally, the patient is awake, alert and oriented to person, place and time. Able to provide history with no conversational dyspnea. No use of respiratory accessory muscles. Face is symmetric. Tongue is midline. No uvular deviation. No cervical lymphadenopathy, thyromegaly, jugular venous distention. Lungs are clear to auscultation. No wheezing, rales or rhonchi. Heart: S1 and S2. Tachycardic. Irregular rhythm. No murmurs, rubs or gallops. Abdomen: Obese, soft, nontender, nondistended. Extremities: No cyanosis, clubbing or pitting edema. 03/23/2019 CBC, metabolic panel and cardiac markers have reviewed. Imaging study 03/23/2019 chest x-ray with mild plate-like atelectasis in the left lower lobe. ASSESSMENT AND PLAN: This is a 58-year-old female with history of atrial fibrillation status post ablation times two, most recent was this past Wednesday. The patient does have history of obstructive sleep apnea (KEMI) on C-PAP, valvular disease, implantable loop recorder (ILR), who presented with palpitations, lightheadedness and dizziness described as sharp and was found to be in rapid atrial fibrillation at 150 to 160 which did not respond to 25 mg by mouth metoprolol and six doses of 5 mg IV Lopressor. The patient was admitted overnight and placed on sotalol 80 twice a day with persistent tachycardia at 115 to 126, but no complaints of lightheadedness or dizziness this morning. CURRENT ISSUES: 1. Atrial fibrillation with rapid ventricular rate on sotalol 80 mg by mouth twice a day. She has undergone ablation times two and per her warehouse delivery driver due to excessive bleeding after her ablation told her to hold her Eliquis for two days. Pipeline Dispatcher, Dr. Gray, has been consulted to determine the need for pacemaker in order to increase sotalol dose for better rate control. Her Eliquis has been held at this time. She is currently kept nothing by mouth with IV fluids until decision for transfer or pacemaker can be made. The patient last drank around 3:00 a.m. this morning. 2. Depression. Continue on Prozac. 3. Obstructive sleep apnea. Continue on her C-PAP. May be contributing to her atrial fibrillation with possible cor pulmonale. 4. Obesity. Body mass index (BMI) 40.9, complicating her care. 5. Deep vein thrombosis (DVT) prophylaxis currently with compression stockings. Eliquis has been held due to excessive bleeding status post ablation and she was advised per warehouse delivery driver to hold her Eliquis for two days. DISPOSITION: Awake recommendations from staff air defense officer. If patient needs a pacemaker, she will need to be nothing by mouth, versus transfer to [place] for repeat ablation versus pacemaker. [facility]
[2019-03-24] MEDS: METOPROLOL TART 25 MG TABLET PO SCH ×2 (09:07→20:17)
[2019-03-24] MEDS ORDERED: METOPROLOL 5 MG/5 ML VIAL IV ONE (09:45)
[2019-03-24] MEDS ORDERED: POTASSIUM CHLORIDE 10 MEQ SR TABLET PO ONE (10:00)
--- NOTE | 2019-03-24 19:21 | ECGEPIP ---
[facility] Test Date: 2019-03-24 Pat Name: ROSHNI SILVER Department: Room: [place] [address] Gender: Female Binder Lockstitch: EUGENE : 1960 Requested By: Liz Gray Order Number: [id number] Reading MD: Jason Crowley Measurements Intervals [place] Rate: 51 P: -3 TN: 158 QRS: 5 QRSD: 102 T: 12 QT: 465 QTc: 432 Interpretive Statements SINUS BRADYCARDIA MINIMAL ST DEPRESSION Conversion from atrial fibrillation 03/23/19 Electronically Signed on 03-24-2019 19:21:32 EDT by Jason Crowley
--- NOTE | 2019-03-24 19:23 | ECGEPIP ---
[facility] Test Date: 2019-03-24 Pat Name: ROSHNI SILVER Department: Room: [place] [address] Gender: Female Claim Manager: EUGENE : 1960 Requested By: Liz Gray Order Number: [id number] Reading MD: Jason Crowley Measurements Intervals [place] Rate: 109 P: [place]: 0 QRS: 7 QRSD: 101 T: -14 QT: 361 QTc: 486 Interpretive Statements ATRIAL FIBRILLATION WITH RAPID VENTRICULAR RESPONSE NONSPECIFIC ST & T-WAVE ABNORMALITY ABNORMAL RHYTHM ECG Rhythm change from 03/24/19 at 8:28 hours Electronically Signed on 03-24-2019 19:23:27 EDT by Jason Crowley
--- NOTE | 2019-03-24 19:40 | CR ---
DATE OF CONSULTATION: 03/24/2019 CONSULTATION REPORT FOR: Dr. Ruiz REASON FOR CONSULTATION: Paroxysmal atrial fibrillation. HISTORY OF PRESENT ILLNESS: Mrs. Newman is known to me. She is a pleasant 58-year-old female who has known paroxysmal atrial fibrillation for years. She presented to [facility] yesterday after she was woken up the night before by chest discomfort. She actually had her second atrial fibrillation ablation the night before the presentation to our emergency room and it was done by Dr. King. She was leaving the [facility] apparently in sinus rhythm, feeling well, but then woke up the night after the procedure with chest pain that was retrosternal but was markedly aggravated by motion in general and especially by taking a deep breath that brought her to the hospital. She was found to be in atrial fibrillation with rapid ventricular response. She did not respond favorably to administration of metoprolol on top of her chronic sotalol and consequently it was decided to bring her for admission. Throughout the night and day, she alternated between sinus bradycardia with heart rate typically around 50 beats per minute but occasionally also in the 40s with atrial fibrillation, during which she would be tachycardic with heart rate up to 150s. She also had several bouts of brief ventricular tachycardia, typically not more than three or four beats. Consequently, I was asked to see her. When I saw her this morning, she was feeling well. She says that her chest discomfort completely resolved. Nevertheless, she still feels bouts of atrial fibrillation. She denies any feelings that would be suggestive of near syncopal sensation. PAST MEDICAL HISTORY: 1. Paroxysmal atrial fibrillation, as above. 2. Obesity. 3. Obstructive sleep apnea on continuous positive airway pressure (CPAP). 4. Longstanding history of hypertension. 5. History of tachycardia-induced cardiomyopathy with subsequent recovery of left ventricular (LV) systolic function. 6. No coronary artery disease. Last evaluation was single photon emission computed tomography (SPECT) in December 2018 that revealed normal perfusion and left ventricular systolic function was calculated at 67%. PAST SURGICAL HISTORY: Unremarkable. OUTPATIENT MEDICATIONS: - apixaban 5 mg twice a day, was held two days prior to her ablation and she continues to hold the medication as instructed by her claim clerk - fluoxetine 40 mg daily - metoprolol succinate 50 mg daily - sotalol 80 mg twice a day She has a history of intolerance of lisinopril and she also had mild side effects from amiodarone. SOCIAL HISTORY: The patient does not smoke. She does not drink alcohol. FAMILY HISTORY: Nothing relevant to her current presentation. REVIEW OF SYSTEMS: She denies any fever, chills, nausea, vomiting, diarrhea. No bleeding history. No history of stroke. PHYSICAL EXAMINATION: Mrs. Newman is a 58-year-old obese female. She appears in no distress. The last set of vital signs: Blood pressure 103/51, heart rate as mentioned above. She is afebrile. Saturation 98% on room air. Weight is documented at 112 kg. She is alert, oriented and appropriate. Her jugular venous pulse (JVP) is not elevated. I do not appreciate carotid bruit. Lungs are clear to auscultation. Heart examination reveals regular rhythm without gallop, rub or murmur. Abdomen is obese but soft and nontender. Extremities are free of edema. Neurologically, she is intact. LABORATORY DATA: Basic metabolic panel is unremarkable. Cardiac enzymes: Initial troponin has been 0.87 and has been dropping since. Her TSH is slightly low at 0.35. Her CBC reveals hemoglobin 11.5, hematocrit 37, platelet count 192,000. Chest x-ray is unremarkable but for trivial atelectasis in the left lower lobe. An electrocardiogram on admission reveals atrial fibrillation with ventricular rate 138 beats per minute and nonspecific repolarization abnormalities. ECG this morning reveals sinus bradycardia without QT segment prolongation. ASSESSMENT AND PLAN: Mrs. Newman is a 58-year-old female who has longstanding history of paroxysmal atrial fibrillation, who just underwent her second ablation two days ago. She now has features of sick sinus syndrome with alternation between atrial fibrillation with rapid ventricular rate with episodes of sinus bradycardia. In this situation, it is possible that the condition will calm down as the healing of the atrial fibrillation will continue but I think that it is likely that she will need placement of a pacemaker to address the bradycardic component of her condition. I spoke to the patient about this and explained that it may be necessary. I also spoke to Dr. Crowley who is the covering physician for this weekend. He will make the ultimate decision tomorrow morning depending on her clinical course. In the interim, she will continue her current dose of sotalol and metoprolol. She has not been anticoagulated for about four days and I am not going to restart the apixaban tonight considering the fact that she might need pacemaker placement tomorrow. The decision whether it will be restarted tomorrow morning or not will be up to Dr. Crowley and it will depend whether she will have the pacemaker placed or not. As far as the chest pain is concerned, it is likely that it is related to the procedure, but because it had definite pleuritic component to it, I will obtain an echocardiogram that I will interpret shortly. She certainly does not behave like somebody who has a significant pericardial effusion and I do expect that it will be unremarkable. FRANKI
[2019-03-25] VITALS (9 sets, daily range): BP systolic 92–120; BP diastolic 49–82
[2019-03-25] MEDS ORDERED: LR 1,000 ML IV SCH ×2 (06:00→16:15)
[2019-03-25] MEDS ORDERED: ceFAZolin SOD 2 GM in IV 1 EA IV ONE (06:00)
--- NOTE | 2019-03-25 07:43 | ECHO ---
DATE OF PROCEDURE: 03/24/2019 REFERRING PROVIDER: Dr. Dillon Dawson REASON FOR ECHOCARDIOGRAM: Chest pain, post-ablation for atrial fibrillation. MEASUREMENTS: IVS 1.0 cm LV 5.4 cm LVPW 1.0 cm LA 4.4 cm Aorta 2.3 cm RV 2.7 cm IVC 1.8 cm DOPPLER MEASUREMENT: Peak velocity across the aortic valve 1.8 m/s Peak velocity across the LVOT 1.3 m/s Mitral E 1.1 Mitral A 0.44 with a ratio of 2.6 Maximum tricuspid valve velocity 2.3 m/s COMMENTS: 1. Normal left ventricular size, wall thickness, and normal global left ventricular systolic function. The estimated global left ventricular systolic ejection fraction is 60-65%. 2. Mildly enlarged left atrium. 3. Normal right atrium and left ventricle. 4. The atrial septum appeared to be normal without evidence of defect or shunt. 5. Normal aortic root. 6. No significant pericardial effusion seen. 7. Mildly calcified aortic valve with normal leaflet exertion. Mildly calcified mitral annulus with normal anterior valve leaflet motion. Normal tricuspid valve. The pulmonic valve and proximal pulmonary artery branches were not well visualized. 8. The inferior vena cava is normal in size, , central venous pressure is most likely normal. DOPPLER: It detects mild mitral regurgitation, trace tricuspid regurgitation. The calculated pulmonary artery systolic pressure was normal. Assessment of the left ventricular diastolic function also appeared to be normal. IMPRESSION: 1. Normal global left ventricular systolic and diastolic function. 2. Aortic valve sclerosis with two view aortic stenosis with no aortic regurgitation. 3. Mitral annulus calcification with mildly enlarged left atrium and mild mitral regurgitation. 4. Trace tricuspid regurgitation with a normal calculated pulmonary artery systolic pressure. 5. The inferior vena cava was normal in size. 6. The study was technically limited due to poor acoustic window. MTDD
--- NOTE | 2019-03-25 12:46 | IPNPDOC ---
Date Seen The patient was seen on 03/25/19. Progress Note SUBJECTIVE: Denies sob, dizziness, lightheadedness, but admits to chest pain when she takes a deep breath. no fever, chills, cough. Tele: afib w rvr alternating with sinus bradycardia. Pt says her [id number] has a pacemaker with the batteries changed recently, and she feels comfortable getting a pacemaker if necessary. She has been kept NPO for pacemaker this morning. OBJECTIVE: PHYSICAL EXAMINATION: VITALS:PLS SEE BELOW Generally, the patient is awake, alert and oriented to person, place and time. no conversational dyspnea. No use of respiratory accessory muscles. Face is symmetric. Tongue is midline. No uvular deviation. No cervical lymphadenopathy, thyromegaly, jugular venous distention. Lungs are clear to auscultation. No wheezing, rales or rhonchi. Heart: S1 and S2. Tachycardic. Irregular rhythm. No murmurs, rubs or gallops. Abdomen: Obese, soft, nontender, nondistended. Extremities: No cyanosis, clubbing or pitting edema. LABORATORY DATA, IMAGING STUDIES, MICROBIOLOGY: REVIEWED PLS SEE BELOW 03/23/2019 chest x-ray with mild plate-like atelectasis in the left lower lobe. ASSESSMENT AND PLAN: This is a 58-year-old female with history of atrial fibrillation status post ablation times two, most recent was this past Wednesday. The patient does have history of obstructive sleep apnea (KEMI) on C-PAP, valvular disease, implantable loop recorder (ILR), who presented with palpitations, lightheadedness and dizziness described as sharp and was found to be in rapid atrial fibrillation at 150 to 160 which did not respond to 25 mg by mouth metoprolol and six doses of 5 mg IV Lopressor. The patient was admitted overnight and placed on sotalol 80 twice a day with persistent tachycardia at 115 to 126, but no complaints of lightheadedness or dizziness this morning. Sick Sinus Syndrome with alternating Atrial fibrillation with rapid ventricular response and Sinus bradycardia on sotalol 80 mg by mouth twice a day and metoprolol added by her no experience, Dr. Gray on 03/24/19, with persistent uncontrolled rate. She has undergone ablation times two and per her triage licensed practical nurse due to excessive bleeding after her ablation told her to hold her Eliquis for two days. nothing by mouth for pacemaker placement by Dr. Crowley this morning. Depression. Continue on Prozac. Obstructive sleep apnea. Continue on her C-PAP. May be contributing to her atrial fibrillation with possible cor pulmonale. Obesity. Body mass index (BMI) 40.9, complicating her care. Deep vein thrombosis (DVT) prophylaxis currently with compression stockings. Eliquis has been held due to pacemaker placement 03/25/19. VS, I&O, 24H, Fishbone Vital Signs/I&O Vital Signs Date Time Temp Pulse Resp B/P (MAP) Pulse Ox O2 Delivery O2 Flow Rate FiO2 03/25/19 08:00 97.5 120 17 117/64 (81) 97 03/23/19 10:48 Room Air I&O- Last 24 Hours up to 6 AM 03/25/19 06:00 Intake Total 670 ml Output Total 1100 ml Balance -430 ml JOSE DOUGLAS MD Mar 25, 2019 12:45
[2019-03-25] MEDS ORDERED: LIDOCAINE 1% SDV INJ 30 ML VIAL As Ordered ONE (13:27)
[2019-03-25] MEDS ORDERED: ceFAZolin 2 GM/D5W 50 ML IV BAG (J0690 PER 500MG) As Ordered ONE (13:27)
[2019-03-25] MEDS ORDERED: DIGOXIN INJ 0.5 MG/2 ML AMP (J1160) IV STA (15:32)
[2019-03-25] MEDS ORDERED: METOPROLOL 5 MG/5 ML VIAL As Ordered ONE ×2 (15:42→15:57)
[2019-03-25] MEDS ORDERED: DEXTROSE 50% 50 ML SYRINGE IV PRN (15:45)
[2019-03-25] MEDS ORDERED: GLUCOSE 4 GM CHEW TABLET PO PRN (15:45)
[2019-03-25] MEDS ORDERED: GLUCAGON FOR INJ 1 MG VIAL (J1610) SC PRN (15:45)
[2019-03-25] MEDS: METOPROLOL 5 MG/5 ML VIAL IV PRN ×3 (15:46→15:56)
[2019-03-25] MEDS ORDERED: METOPROLOL TART 50 MG TAB As Ordered ONE (15:48)
[2019-03-25] MEDS: METOPROLOL TART 50 MG TAB PO SCH ×2 (15:50→23:48)
[2019-03-25] MEDS ORDERED: PERCOCET 5MG/325MG TAB As Ordered ONE (16:10)
[2019-03-25] MEDS ORDERED: AMIODARONE HCL 150 MG in IV 1 EA IV STA (16:12)
--- NOTE | 2019-03-25 16:13 | REP ---
Clinical: Status post pacemaker . Comparison: 03/23/2019 . Findings: Newly placed pacemaker in satisfactory position. The mediastinum and cardiac silhouette are stable and within normal limits for portable technique. The lung luis are clear without acute consolidation, effusion, or pneumothorax. Skeletal structures are intact. Impression: No acute cardiopulmonary process appreciated. No pneumothorax. Electronically Signed by Gabriel Uribe MD 03/25/2019 04:05 P
[2019-03-25] MEDS ORDERED: fentaNYL 100 MCG/2 ML INJECTION (J3010) IV PRN (16:15)
[2019-03-25] MEDS ORDERED: ONDANSETRON 4MG/2ML VIAL (J2405) IV PRN (16:15)
[2019-03-25] MEDS ORDERED: PERCOCET 5MG/325MG TAB PO PRN (16:15)
[2019-03-25] MEDS ORDERED: AMIODARONE HCL 150 MG/100 ML PREMIXED BAG (NEXTERONE) (J0282 PER 30MG) ONE (16:31)
[2019-03-25] MEDS: FLUoxetine 20 MG CAP PO SCH (16:57)
[2019-03-25] MEDS: AMIODARONE 200 MG TAB (PACERONE) PO SCH ×2 (16:57→20:08)
[2019-03-25] MEDS ORDERED: AMIODARONE 150MG/3ML INJ (J0282) ONE (18:10)
[2019-03-25] MEDS: ACETAMINOPHEN TAB 650MG DOSE (2X325MG) PO PRN (20:09)
[2019-03-25] MEDS: ceFAZolin SOD 1 GM in D5W MINI-BAG PLUS 50 ML IV SCH (20:09)
[2019-03-25] MEDS ORDERED: METOPROLOL SUCC (TopROL XL) 50MG **XL** TAB PO SCH (21:00)
--- NOTE | 2019-03-25 22:02 | ECGEPIP ---
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 Electronically Signed on 03-25-2019 22:02:49 EDT by Jason Crowley
[2019-03-26] MEDS: traMADol 50 MG TAB PO PRN ×3 (02:22→23:47)
[2019-03-26 04:00] VITALS: BP 111/79
[2019-03-26] MEDS: ceFAZolin SOD 1 GM in D5W MINI-BAG PLUS 50 ML IV SCH ×2 (05:12→12:16)
[2019-03-26] MEDS: METOPROLOL TART 50 MG TAB PO SCH ×4 (05:13→23:46)
[2019-03-26] MEDS: ACETAMINOPHEN TAB 650MG DOSE (2X325MG) PO PRN ×2 (05:15→15:45)
--- NOTE | 2019-03-26 06:52 | RO ---
DATE OF PROCEDURE: 03/25/2019 PROCEDURE: 1. Implantation of permanent dual-chamber pacemaker. 2. Direct current cardioversion. 3. Explantation of implanted loop recorder. IMPLANTING SUPERVISOR RUBBER COVERING: Dr. Jason Crowley ANESTHESIOLOGIST: Dr. Jean PREOPERATIVE DIAGNOSES: 1. Tachy-taty syndrome. 2. Recurrent paroxysmal atrial fibrillation with rapid ventricular response and despite two prior radiofrequency ablations. 3. Chest pain secondary to tachyarrhythmia. POSTOPERATIVE DIAGNOSES: 1. Tachy-taty syndrome. 2. Recurrent paroxysmal atrial fibrillation with rapid ventricular response and despite two prior radiofrequency ablations. 3. Chest pain secondary to tachyarrhythmia. TYPE OF ANESTHESIA: Monitored local anesthesia. DESCRIPTION OF PROCEDURE: Following informed consent with the patient in the fasting state having received Ancef 2 grams IV premedication, the patient was taken to the operating theater. Numerous skin electrodes were applied to facilitate continuous electrocardiographic monitoring. Self-adhesive cardioverting/defibrillating pads were applied in an anteroposterior configuration and connected to a bedside cardioverter defibrillator. The left subclavian region was prepped and draped in usual fashion and the skin was infiltrated with 1% Xylocaine. The left axillary vein was catheterized using the micropuncture technique. A 5-cm linear incision was made 2 cm below and parallel to the left clavicle. Dissection was carried down to the level of the pectoralis fascia and a pocket was fashioned below the level of the incision line. Two bipolar screw-in active fixation steroid eluding pacing leads were then positioned to the right ventricular apex and high right atrial appendage under fluoroscopic electrocardiographic control. The right ventricular lead ([employer] model number LPa 1200M/58, serial number [id number]) measured in focal and stimulation threshold 1.0V/0.4 ms/impedance 700 ohms. The R wave amplitude measured 9.0 mV. The atrial lead was placed in position with atrial fibrillation waves measuring 2.5-3.5 mV. In light of her sustained atrial fibrillation we proceeded with our plans to perform direct current cardioversion. Prior to this the patient was given metoprolol 5 mg IV every 5 minutes for three doses and amiodarone 150 mg IV over 10 minutes. She remained in atrial fibrillation so the patient was given additional IV sedation. A series of two direct current cardioversions were performed using 200 and than 360 joules without success. A second dose of amiodarone 150 mg IV infusion was being started when the patient spontaneously converted to a sinus mechanism long enough for us to register P waves of 3.9 mV. She then quickly resumed her atrial fibrillation with rapid ventricular response. The atrial lead ([employer] model number LPa 1200M/52, serial number [id number]) measurements were - during her very brief preserved sinus rhythm we did have capture at 2.0V/0.4 ms. Her lead impedance was 571 ohms and the P waves measured 3.9 mL. Pacing leads were secured in position with sleeves sutured at their insertion site and then connected to an MRI compatible dual-chamber pulse generator ([employer] [facility], model number PM 2272, serial number [id number]) and appropriate DDD pacing was documented. At this point, her implanted loop recorder was then removed through the same incision by tunneling over to the device that was nearby. The pulse generator was placed in the pocket and secured in position with a suture through the right upper hand corner of the epoxy header. The subcutaneous tissues were approximated using a running chromic suture and the skin was closed using samuel. Dry dressing was applied and the patient was returned to recovery room in good condition. Postoperative chest x-ray confirmed excellent lead position with no pneumothorax. Her EKG showed underlying atrial fibrillation with persistent somewhat rapid ventricular response to atrial fibrillation. Her dual-chamber pacemaker was functioning appropriately sensing and inhibited. At this point she will be continuing on telemetry and our intention is to start digoxin with 0.5 mg IV in the recovery room along with metoprolol 5 mg IV every 5 minutes for three doses and metoprolol 50 mg by mouth. Our intent is to continue with digoxin 0.25 mg three times weekly, metoprolol 50 mg by mouth every 6 hours with hold parameters and amiodarone 2 mg by mouth four times a day. Our hope is that this will restore control to her atrial fibrillation and perhaps convert her to a sinus/atrially paced mechanism. She may well benefit from additional ablation procedure so her amiodarone may not be necessarily long-term. No apparent complications. Estimated blood loss 10 mL. MTDD
[2019-03-26 08:00] VITALS: BP 124/83
[2019-03-26] MEDS: AMIODARONE 200 MG TAB (PACERONE) PO SCH ×4 (08:00→20:32)
[2019-03-26] MEDS: FLUoxetine 20 MG CAP PO SCH (08:00)
[2019-03-26] MEDS ORDERED: DIGOXIN 0.25 MG TAB PO ONE (08:00)
--- NOTE | 2019-03-26 09:00 | REP ---
Clinical: Status post pacemaker. Technique: PA and lateral. Comparison: 03/25/2019. Findings: Cardiac silhouette is stable. Dual lead pacemaker in satisfactory position. No focal consolidation, effusion, or pneumothorax. Small focus of linear atelectasis in the periphery of the left mid lung zone suggested. Skeletal structures intact. Impression: Status post pacemaker. No pneumothorax. Electronically Signed by Gabriel Uribe MD 03/26/2019 08:51 A
--- NOTE | 2019-03-26 09:35 | ECGEPIP ---
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 Spontaneous alternating with ventricular paced complexes No significant change from 03/25/19. Electronically Signed on 03-26-2019 9:35:24 EDT by Jason Crowley
[2019-03-26 12:00] VITALS: BP 110/70
--- NOTE | 2019-03-26 13:56 | IPNPDOC ---
Date Seen The patient was seen on 03/26/19. Progress Note SUBJECTIVE: c/o discomfort "like a pressure" s/p pacemaker insertion yesterday. Tele: Afib. denies lightheadedness, dizziness, sob. left arm in sling. right handed at baseline and able to eat , but a little challenging with using her left arm. OBJECTIVE: PHYSICAL EXAMINATION: VITALS:PLS SEE BELOW Generally,lying in bed 30 degree head elevation with left arm sling. the patient is awake, alert and oriented to person, place and time. no conversational dyspnea. No use of respiratory accessory muscles. Face is symmetric. Tongue is midline. No uvular deviation. No cervical lymphadenopathy, thyromegaly, jugular venous distention. Lungs are clear to auscultation. No wheezing, rales or rhonchi. Heart: S1 and S2. Tachycardic. Irregular rhythm. No murmurs, rubs or gallops. s/p pacer in anterior chest slight tender no erythema or swelling. Abdomen: Obese, soft, nontender, nondistended. Extremities: No cyanosis, clubbing or pitting edema. LABORATORY DATA, IMAGING STUDIES, MICROBIOLOGY: REVIEWED PLS SEE BELOW 03/23/2019 chest x-ray with mild plate-like atelectasis in the left lower lobe. ASSESSMENT AND PLAN: This is a 58-year-old female with history of atrial fibrillation status post ablation times two, most recent was this past Wednesday. The patient does have history of obstructive sleep apnea (KEMI) on C-PAP, valvular disease, implantable loop recorder (ILR), who presented with palpitations, lightheadedness and dizziness described as sharp and was found to be in rapid atrial fibrillation at 150 to 160 which did not respond to 25 mg by mouth metoprolol and six doses of 5 mg IV Lopressor. Patient was admitted for Afib with RVR but had episodes of sinus bradycardia requiring pacemaker insertion. Tachy-Neil Syndrome / Sick Sinus Syndrome with alternating Atrial fibrillation with rapid ventricular response and Sinus bradycardia on admission, pt was kept on her home dose of sotalol, but metoprolol was added for better rate control. However, she developed bradycardia needing a pacemaker. she is continued on metoprolol, but now on amiodarone qid. postop careper Cardiology. OT consulted to assist with ADLs. currently in sling. will check TSH.defer to cardiology for timing of resuming her eliquis.PRN tramadol for pain. Depression. Continue on Prozac. Obstructive sleep apnea. Continue on her C-PAP. May be contributing to her atrial fibrillation with possible cor pulmonale. Obesity. Body mass index (BMI) 40.9, complicating her care. Deep vein thrombosis (DVT) prophylaxis: compression stockings. disposition: await PT/OT, cardiology clearance for dc home once rate is optimized. 1-2 days. [facility] Vital Signs Date Time Temp Pulse Resp B/P (MAP) Pulse Ox O2 Delivery O2 Flow Rate FiO2 03/26/19 12:16 104 110/70 03/26/19 12:00 96.2 18 99 03/23/19 10:48 Room Air I&O- Last 24 Hours up to 6 AM 03/26/19 05:59 Intake Total 1480 ml Output Total 550 ml Balance 930 ml Laboratory Data 24H LABS Laboratory Tests 2 03/25/19 23:49: Bedside Glucose (Misc Panel) 95 JOSE DOUGLAS MD Mar 26, 2019 13:54
--- NOTE | 2019-03-26 15:56 | IPN ---
DATE: 03/26/2019 CARDIOLOGY PROGRESS NOTE SUBJECTIVE: Patient has been up ambulating without lightheadedness. Claims to have considerably less awareness of her heart action on her current combination medical therapy. Appears to tolerate these medications without adverse effect. Has minimal pacemaker incisional tenderness. OBJECTIVE: Pleasant, overweight, middle-aged male female laying comfortably. No pallor or cyanosis. Normal oral moisture. Heart rate currently 90-100 bpm and irregular, blood pressure 110/70. Respiratory rate 18. Oxygen saturation 99% on room air. Afebrile. Trachea midline. Neck veins did not appear to be elevated. Slightly increased anteroposterior chest diameter but normal respirations. Her left subclavian pacemaker incision appears to be healing well without erythema, swelling or discharge. No pedal edema. 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 No longer in the 150s, 160s, averaging in the 90s to 100, rarely higher. Her pacemaker is performing appropriately with intermittent ventricular pacing, with low rate programmed to 90 bpm for the time being. We are hoping, with her bouts of sinus rhythm, with a faster rate she will be less likely to resume her atrial fibrillation. CHEST X-RAY: PA and lateral study performed earlier today was reviewed independently and shows at least mild cardiomegaly with normal thoracic aorta and pulmonary vasculature. Lung luis were clear with no filtrate or pleural effusion. Pacing leads remain stable in position with pulse generator left subclavian region. EKG: As per her security monitor, this shows primarily atrial fibrillation with a controlled ventricular response with spontaneous alternating with ventricular paced complexes. IMPRESSION/PLAN: 1. Recurrent paroxysmal atrial fibrillation/status post radiofrequency (RF) ablation times two: Her arrhythmia remains somewhat tenacious, but a ventricular response is much better controlled with combination digoxin, metoprolol and amiodarone. We are cautiously optimistic with her current dose of amiodarone and she may well restore an organized atrial mechanism. We would continue amiodarone 800 mg daily for two weeks, then dropping it down to 600 mg daily for a month and then to 200 mg twice a day for an additional month prior to considering dropping it to 200 mg daily. We are hoping within a week that her organized atrial mechanism will be restored. Long-term, we have discussed the role of additional radiofrequency ablation to allow for amiodarone to be discontinued altogether ultimately. Her oral anticoagulation, Eliquis 5 mg twice a day, will be resumed tomorrow morning. 2. Tachy-taty syndrome/dual-chamber pacemaker in situ: As mentioned above, her device appears to be functioning appropriately, mostly sensing in the atrium, but she has had brief bouts of sinus rhythm and atrial pacing. Intracardiac electrograms remain excellent. We were able to test her ventricular pacing threshold and this was excellent. Currently in atrial fibrillation, we could not perform an atrial threshold test. As mentioned, her present low pacing rate was left at 90 beats per minute with ultimate plan to reduce his rate once a stable, organized atrial mechanism was achieved. Current estimated battery longevity was 9.4 years. 3. Abnormal EKG. With her atrial arrhythmia, has some nonspecific ST abnormalities related to her sustained bouts of atrial fibrillation with rapid ventricular responses. Her Troponin-I has been in an indeterminate range. Sorto management would be optimal control of her ventricular response and now with her pacemaker in situ, we have pushed her beta-marlena, started digoxin (dose adjusted) and amiodarone antiarrhythmic therapy. 4. Mitral valve disorder (non rheumatic)/insufficiency: Has no audible murmur on examination. Recent echocardiogram showed normal left ventricular size and wall thickness and wall motion, but at least mildly dilated left atrium with mild mitral insufficiency. Has no symptoms or signs of endocarditis. We will be discussing her medication adjustments with Dr. Gray, who will be resuming her primary cardiology care as of tomorrow morning. Thank you.
[2019-03-26 16:00] VITALS: BP 131/83
[2019-03-26 20:00] VITALS: BP 126/80
[2019-03-27] VITALS: BP 117/58
[2019-03-27 04:00] VITALS: BP 122/67
[2019-03-27 05:36] LABS: HEMATOCRIT 40.3 % (36.0-47.0); HEMOGLOBIN 12.6 g/dl (12.0-15.5); MEAN CORPUSCULAR HEMOGLOBIN 27.4 pg (27.0-33.0); MEAN CORPUSCULAR HGB CONC 31.3 g/dl (32.0-36.5); MEAN CORPUSCULAR VOLUME 87.6 fl (80.0-96.0); PLATELET COUNT, AUTOMATED 218 10^3/uL (150-450); WHITE BLOOD COUNT 8.2 10^3/uL (4.0-10.0)
[2019-03-27 05:55] VITALS: BP 122/67
[2019-03-27] MEDS: METOPROLOL TART 50 MG TAB PO SCH (05:55)
[2019-03-27] MEDS: traMADol 50 MG TAB PO PRN (05:56)
[2019-03-27 05:58] LABS: BLOOD UREA NITROGEN 11 MG/DL (7-18); CALCIUM LEVEL 9.1 MG/DL (8.5-10.1); CARBON DIOXIDE LEVEL 29 MEQ/L (21-32); CHLORIDE LEVEL 107 MEQ/L (98-107); GLOMERULAR FILTRATION RATE > 60.0 (>51); GLUCOSE, FASTING 86 MG/DL (70-100); POTASSIUM SERUM 4.5 MEQ/L (3.5-5.1); SODIUM LEVEL 140 MEQ/L (136-145)
[2019-03-27 07:36] VITALS: BP 110/78
--- NOTE | 2019-03-27 08:17 | IPN ---
DATE OF SERVICE: 03/27/2019 Mrs. Newman is feeling well. She had a pacemaker placed by Dr. Crowley on Wednesday. The procedure was uneventful. Her medications were also significantly changed by Dr. Crowley because she continued to have episodes of significant tachycardia. She is currently on amiodarone 400 mg twice a day plus digoxin plus metoprolol. She still is predominantly in atrial fibrillation with ventricular rate around 100 beats per minute, but she has been feeling much better and was able to ambulate and feels that her energy level improved considerably. She does not have any specific complaints today. Vital Signs: Blood pressure 122/67. Heart rate 90. She is afebrile. Saturation 99% in room air. Weight is documented at 102 kg. She is alert, oriented and appropriate. No distress. Jugular venous pulse (JVP) is not high. Lungs are clear with good air movement. Heart exam reveals irregularly irregular rhythm. No gallop or rub. There is a pacemaker in the left subclavian pocket with a dressing applied. Abdomen is soft, nontender. No peripheral edema. Neurologically, she is intact. Laboratories reveal a normal CBC and normal basic metabolic panel. ASSESSMENT/PLAN: Mrs. Newman is a 58-year-old female who has a history of paroxysmal atrial fibrillation who underwent a second ablation last week, in spite of which, she continued to have episodes of atrial fibrillation with very fast ventricular response alternating with sinus bradycardia. Consequently, the decision was made to proceed with pacemaker placement because she had evidence for sick sinus syndrome and it was impossible to manage her tachycardiac episodes. Sotalol was replaced by amiodarone which I think is an appropriate decision as rate control has been challenging. I am hoping that with the medication on board and recent ablation she will eventually stabilize in sinus rhythm and the administration of amiodarone will be only temporary. She was restarted on apixaban. I believe that the patient can be discharged home on her current medications. I would make some small adjustments. I would recommend that she take digoxin 0.125 mg only Wednesday through Wednesday with none on weekends and I would change metoprolol to 100 mg twice a day. I plan to see her in followup next week.
[2019-03-27] MEDS ORDERED: LOPR1TAB6 PO (08:34)
[2019-03-27] MEDS ORDERED: AMIO200T PO (08:34)
[2019-03-27] MEDS ORDERED: DIGO0.253 PO (08:34)
[2019-03-27] MEDS: FLUoxetine 20 MG CAP PO SCH (08:38)
[2019-03-27] MEDS: ACETAMINOPHEN TAB 650MG DOSE (2X325MG) PO PRN (08:38)
[2019-03-27] MEDS: AMIODARONE 200 MG TAB (PACERONE) PO SCH (08:38)
[2019-03-27] MEDS ORDERED: DIGOXIN 0.25 MG TAB PO SCH (09:00)
[2019-03-27] MEDS ORDERED: APIXABAN 5 MG TAB (ELIQUIS) PO SCH (09:00)
--- NOTE | 2019-03-27 12:52 | DS.PDOC ---
Discharge Summary General Date of Admission Mar 23, 2019 at 18:01 Date of Discharge 03/27/19 Discharge Summary PROCEDURES PERFORMED DURING STAY: 03/26/[address] Crowley CONSULTANTS: DR. SEVERO CROWLEY DISCHARGE DIAGNOSES: Sick Sinus syndrome Tachy-Neil Syndrome Atrial fibrillation with rapid ventricular response Sinus bradycardia Obesity BMI 37.7 CHIEF COMPLAINT: palpitations, chest pain HISTORY OF PRESENT ILLNESS: This is a 58-year-old female with history of atrial fibrillation status post ablation times two, most recent was this past Wednesday. The patient does have history of obstructive sleep apnea (KEMI) on C-PAP, valvular disease, implantable loop recorder (ILR), who presented with palpitations, lightheadedness and dizziness described as sharp and was found to be in rapid atrial fibrillation at 150 to 160 which did not respond to 25 mg by mouth metoprolol and six doses of 5 mg IV Lopressor. Patient was admitted for Afib with RVR but had episodes of sinus bradycardia requiring pacemaker insertion. HOSPITAL COURSE: Tachy-Neil Syndrome / Sick Sinus Syndrome with alternating Atrial fibrillation with rapid ventricular response and Sinus bradycardia on admission, pt was kept on her home dose of sotalol, but metoprolol was added for better rate control. However, she developed bradycardia needing a pacemaker. Post-pacer insertion, her sotalol was discontinued. She was started on amiodarone 200mg qid, metoprolol q6hrs, and digoxin. postop care per Cardiology. OT consulted to assist with ADLs. currently in sling. TSH reviewed.PRN tramadol for pain. outpt fu with Dr. Gray in 5days to change her medications if needed. Depression. on Prozac. Obstructive sleep apnea. on her C-PAP. May be contributing to her atrial fibrillation with possible cor pulmonale. Obesity. Body mass index (BMI) 40.9, complicating her care. Deep vein thrombosis (DVT) prophylaxis: compression stockings. DISCHARGE MEDICATIONS: Please see below. ALLERGIES: Please see below. PHYSICAL EXAMINATION ON DISCHARGE: VITAL SIGNS: Please see below. Generally,lying in bed 30 degree head elevation with left arm sling. the patient is awake, alert and oriented to person, place and time. no conversational dyspnea. No use of respiratory accessory muscles. Face is symmetric. Tongue is midline. No uvular deviation. No cervical lymphadenopathy, thyromegaly, jugular venous distention. Lungs are clear to auscultation. No wheezing, rales or rhonchi. Heart: S1 and S2. Tachycardic. Irregular rhythm. No murmurs, rubs or gallops. s/p pacer in anterior chest slight tender no erythema or swelling. Abdomen: Obese, soft, nontender, nondistended. LABORATORY DATA,IMAGING, MICROBIOLOGY: PLS SEE BELOW ACTIVITY: left arm in sling, per maintenance construction helper DIET:DHAVAL low fat low cholesterol DISCHARGE PLAN: Dr. Gray next week to adjust meds. DISPOSITION: 1 Home, Self-Care. DISCHARGE INSTRUCTIONS: 1. . ITEMS TO FOLLOWUP ON ON OUTPATIENT: cardiology fu appt within [address] Gray for adjustment of medications. DISCHARGE CONDITION: stable TIME SPENT ON DISCHARGE: 32 minutes. Vital Signs/I&Os Vital Signs Date Time Temp Pulse Resp B/P (MAP) Pulse Ox O2 Delivery O2 Flow Rate FiO2 03/27/19 08:39 110 03/27/19 07:36 96.7 18 110/78 (89) 99 03/23/19 10:48 Room Air I&O- Last 24 Hours up to 6 AM 03/27/19 06:00 Intake Total 860 ml Output Total 2050 ml Balance -1190 ml Laboratory Data Labs 24H Laboratory Tests 2 03/27/19 05:12: Nucleated Red Blood Cells % (auto) 0.0, Anion Gap 4L, Glomerular Filtration Rate > 60.0, Blood Urea Nitrogen 11, Creatinine 0.80, Sodium Level 140, Potassium Level 4.5, Chloride Level 107, Carbon Dioxide Level 29, Calcium Level 9.1 CBC/BMP Laboratory Tests 03/27/19 05:12 Red Blood Count 4.60, Mean Corpuscular Volume 87.6, Mean Corpuscular Hemoglobin 27.4, Mean Corpuscular Hemoglobin Concent 31.3 L, Red Cell Distribution Width 13.1, Calcium Level 9.1 Discharge Medications Scheduled Amiodarone HCl (Amiodarone HCl) 200 Mg Tablet, 200 MG PO QID Apixaban (Eliquis) 5 Mg Tablet, 5 MG PO BID, (Reported) ON HOLD UNTIL 03/25/19 DUE TO SURGERY Digoxin (Digoxin) 250 Mcg Tablet, 0.25 MG PO MoWeFr@0900 Fluoxetine Hcl (Fluoxetine HCl) 40 Mg Cap, 40 MG PO DAILY, (Reported) Lactobacillus Acidophilus (Probiotic) 1 Each Capsule, 1 CAP PO DAILY, (Reported) Metoprolol Tartrate (Lopressor) 50 Mg Tablet, 50 MG PO Q6H Sotalol HCl (Sotalol) 80 Mg Tablet, 80 MG PO BID, (Reported) Scheduled PRN Acetaminophen (Tylenol Extra Strength) 500 Mg Tablet, 1,000 MG PO TID PRN for PAIN, (Reported) Allergies Coded Allergies: No Known Allergies (Unverified , 12/02/18) JOSE DOUGLAS MD Mar 27, 2019 12:47
--- NOTE | 2019-03-28 18:19 | ECGEPIP ---
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 No change from 03/26/19. Electronically Signed on 03-28-2019 18:18:48 EDT by Jason Crowley
== END 2019-03-27 11:09 | disposition home or self-care (01) | DRG 171 ==
LOC: M ED 10:48 → M ED INP 18:01 → M PCU 19:44
PROVIDERS: ADMIT Hospitalist; ATTEND General Practice
PROC: 0JPT0PZ Removal of Cardiac Rhythm Related Device from Trunk Subcutaneous Tissue and Fascia, Open Approach (ICD-10-PCS; 2019-03-25)
PROC: 02HK3JZ Insertion of Pacemaker Lead into Right Ventricle, Percutaneous Approach (ICD-10-PCS; 2019-03-25)
PROC: 02H63JZ Insertion of Pacemaker Lead into Right Atrium, Percutaneous Approach (ICD-10-PCS; 2019-03-25)
PROC: 5A2204Z Restoration of Cardiac Rhythm, Single (ICD-10-PCS; 2019-03-25)
PROC: 0JH606Z Insertion of Pacemaker, Dual Chamber into Chest Subcutaneous Tissue and Fascia, Open Approach (ICD-10-PCS; principal; 2019-03-25 10:30)
DX: I49.5 Sick sinus syndrome (principal); F32.9 Major depressive disorder, single episode, unspecified; Z68.37 Body mass index [BMI] 37.0-37.9, adult; I48.0 Paroxysmal atrial fibrillation; G47.33 Obstructive sleep apnea (adult) (pediatric); I34.0 Nonrheumatic mitral (valve) insufficiency; I25.10 Atherosclerotic heart disease of native coronary artery without angina pectoris; E66.9 Obesity, unspecified; Z79.01 Long term (current) use of anticoagulants; Z79.899 Other long term (current) drug therapy

== ENCOUNTER → 2019-05-08 | Outpatient (CLI) | payer BC, OTHER ==
[~2019-05-08] MED LIST changes: +DIGO0.25 PO; -DIGO0.253 PO; +ELIQ5TAB PO; -MAALOX 30 ML SUSP *UDC PO PRN; +PROBCAP14 PO
--- NOTE | 2019-05-09 04:30 | REP ---
Clinical: Chest pain. Recent pacemaker placement. Technique: Axial noncontrast images from the thoracic inlet to the upper abdomen with coronal and sagittal re-formations. Comparison: 12/02/2018. Findings: Dual lead pacemaker identified with leads in satisfactory position. Mild stable cardiomegaly is unchanged and no pericardial effusion is appreciated. Thoracic aorta and pulmonary vasculature are grossly normal. No axillary, hilar, or mediastinal adenopathy. Lung luis demonstrate minimal stable chronic basilar fibroatelectatic changes primarily involving the lingula. No acute consolidation or effusion. No pneumothorax. Tracheobronchial tree is patent. Limited upper abdomen demonstrates normal bilateral adrenal glands. Impression: Mild stable basilar chronic fibroatelectatic changes. No acute mediastinal or pleuroparenchymal process. Electronically Signed by Gabriel Uribe MD 05/09/2019 04:22 A
== END ==
LOC: M RAD 07:02
PROVIDERS: ATTEND Nurse Practitioner Family
DX: I51.7 Cardiomegaly (principal); R91.8 Other nonspecific abnormal finding of lung field; R06.00 Dyspnea, unspecified; R05 Cough

== ENCOUNTER → 2019-09-11 | Outpatient (CLI) | payer OTHER ==
[~2019-09-11] MED LIST changes: -DIGO0.25 PO; +DIGO0.253 PO
[2019-09-11 09:28] LABS: HEMATOCRIT 36.9 % (36.0-47.0); HEMOGLOBIN 11.7 g/dl (12.0-15.5); MEAN CORPUSCULAR HEMOGLOBIN 28.8 pg (27.0-33.0); MEAN CORPUSCULAR HGB CONC 31.7 g/dl (32.0-36.5); MEAN CORPUSCULAR VOLUME 90.9 fl (80.0-96.0); PLATELET COUNT, AUTOMATED 252 10^3/uL (150-450); RED BLOOD COUNT 4.06 10^6/uL (4.00-5.40); WHITE BLOOD COUNT 6.7 10^3/uL (4.0-10.0)
[2019-09-11 09:55] LABS: CREATININE FOR GFR 1.05 MG/DL (0.55-1.30)
[2019-09-11 09:56] LABS: GLOMERULAR FILTRATION RATE 57.5 (>51); POTASSIUM SERUM 4.1 MEQ/L (3.5-5.1)
== END ==
LOC: M LAB 08:07
PROVIDERS: ATTEND Internal Medicine Cardiovascular Disease
DX: I48.91 Unspecified atrial fibrillation (principal)

== ENCOUNTER 2020-03-15 18:48 | Emergency (ER) | payer OTHER ==
[~2020-03-15] VITALS: Ht 165.1 cm; Wt 107.6 kg
[~2020-03-15 18:48] MED LIST changes: -AMIO200T PO; +AMIO200T3 PO
[2020-03-15] MEDS ORDERED: FURO20TA2 PO (19:11)
[2020-03-15] MEDS ORDERED: DIGO0.123 PO (19:11)
[2020-03-15] MEDS ORDERED: GABA-843 PO (19:11)
[2020-03-15] MEDS ORDERED: TOBR0.3S37 (19:11)
[2020-03-15] MEDS ORDERED: ELIQ5TAB PO (19:11)
[2020-03-15] MEDS ORDERED: METO200T28 PO (19:11)
[2020-03-15 20:25] LABS: BASO # 0.1 10^3/uL (0.0-0.2); BASO % 0.5 % (0.0-1.0); EOS # 0.2 10^3/uL (0.0-0.5); EOS % 1.5 % (0.0-3.0); HEMATOCRIT 42.5 % (36.0-47.0); HEMOGLOBIN 13.4 g/dl (12.0-15.5); LYMPH # 1.6 10^3/uL (1.5-5.0); LYMPH % 14.8 % (24.0-44.0); MEAN CORPUSCULAR HEMOGLOBIN 27.6 pg (27.0-33.0); MEAN CORPUSCULAR HGB CONC 31.5 g/dl (32.0-36.5); MEAN CORPUSCULAR VOLUME 87.6 fl (80.0-96.0); MONO # 0.6 10^3/uL (0.0-0.8); MONO % 5.3 % (0.0-5.0); NEUTROPHILS # 8.5 10^3/uL (1.5-8.5); NEUTROPHILS % 77.4 % (36.0-66.0); PLATELET COUNT, AUTOMATED 292 10^3/uL (150-450); RED BLOOD COUNT 4.85 10^6/uL (4.00-5.40)
[2020-03-15 20:41] LABS: CREATININE FOR GFR 1.13 MG/DL (0.55-1.30); GLOMERULAR FILTRATION RATE 52.8 (>51); POTASSIUM SERUM 4.7 MEQ/L (3.5-5.1)
[2020-03-15] MEDS ORDERED: METOPROLOL SUCC (TopROL XL) 100MG *XL* TAB PO ONE (20:45)
[2020-03-15] MEDS ORDERED: METOPROLOL 5 MG/5 ML VIAL As Ordered ONE (22:27)
[2020-03-15] MEDS ORDERED: METOPROLOL 5 MG/5 ML VIAL IV SCH (22:30)
[2020-03-15 22:32] VITALS: BP 125/79
[2020-03-15 23:03] LABS: DIGOXIN LEVEL 0.7 NG/ML (0.5-2.0)
[2020-03-15] MEDS ORDERED: DIGOXIN INJ 0.5 MG/2 ML AMP (J1160) IV STA (23:18)
[2020-03-16] MEDS ORDERED: METO200T28 PO (00:55)
[2020-03-16 01:40] VITALS: BP 122/58
--- NOTE | 2020-03-28 12:17 | ECGEPIP ---
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
--- NOTE | 2020-04-15 09:46 | REP ---
PORTABLE CHEST X-RAY CLINICAL: Chest pain. COMPARISON: 03/25/2019. FINDINGS: Mediastinum and cardiac silhouette are within normal limits and stable. Pacemaker noted. Lung luis clear. No consolidation, effusion, or pneumothorax. Skeletal structures are intact. IMPRESSION: Stable chest x-ray. No acute cardiopulmonary process. MTDD
== END 2020-03-16 01:42 | disposition home or self-care (01) ==
LOC: M ED 18:48
DX: I48.91 Unspecified atrial fibrillation (principal); I49.01 Ventricular fibrillation; I49.5 Sick sinus syndrome; R94.31 Abnormal electrocardiogram [ECG] [EKG]; I10 Essential (primary) hypertension; F41.9 Anxiety disorder, unspecified; Z95.0 Presence of cardiac pacemaker; Z79.01 Long term (current) use of anticoagulants; Z79.899 Other long term (current) drug therapy
CPT/HCPCS: 36415; 71045; 80048; 80162; 84484; 85025; 93005; 93041; 94760; 96374; 96375; 99285; J1160

== ENCOUNTER → 2020-03-20 | Outpatient (CLI) | payer OTHER ==
[~2020-03-20] MED LIST changes: +DIGO0.123 PO; +FURO20TA2 PO; +GABA-843 PO; +METO200T28 PO; +TOBR0.3S37
[2020-03-20 17:28] LABS: HEMATOCRIT 39.7 % (36.0-47.0); HEMOGLOBIN 11.9 g/dl (12.0-15.5); MEAN CORPUSCULAR HEMOGLOBIN 27.4 pg (27.0-33.0); MEAN CORPUSCULAR VOLUME 91.5 fl (80.0-96.0); PLATELET COUNT, AUTOMATED 277 10^3/uL (150-450); RED BLOOD COUNT 4.34 10^6/uL (4.00-5.40); WHITE BLOOD COUNT 7.4 10^3/uL (4.0-10.0)
[2020-03-20 17:35] LABS: BLOOD UREA NITROGEN 12 MG/DL (7-18); CALCIUM LEVEL 8.4 MG/DL (8.5-10.1); CARBON DIOXIDE LEVEL 28 MEQ/L (21-32); CHLORIDE LEVEL 104 MEQ/L (98-107); CREATININE FOR GFR 0.93 MG/DL (0.55-1.30); GLOMERULAR FILTRATION RATE > 60.0 (>51); GLUCOSE, FASTING 67 MG/DL (70-100); POTASSIUM SERUM 4.1 MEQ/L (3.5-5.1); SODIUM LEVEL 139 MEQ/L (136-145)
== END ==
LOC: M LAB 09:02
PROVIDERS: ATTEND Internal Medicine Cardiovascular Disease
DX: I48.91 Unspecified atrial fibrillation (principal)

== ENCOUNTER → 2020-05-16 | Outpatient (CLI) | payer OTHER | LOC: M LABSMTC 11:38 | PROVIDERS: ATTEND Physical Medicine & Rehabilitation | DX: Z01.812 Encounter for preprocedural laboratory examination (principal); Z20.828 Contact with and (suspected) exposure to other viral communicable diseases ==

== ENCOUNTER → 2020-05-16 | Outpatient (CLI) | payer OTHER ==
[2020-05-16 10:40] LABS: INR 0.98; PROTHROMBIN TIME 13.2 SECONDS (12.5-14.3)
[2020-05-16 10:41] LABS: PARTIAL THROMBOPLASTIN TIME 35.9 SECONDS (24.2-38.5)
[2020-05-16 10:49] LABS: COLLAGEN EPINEPHRINE 159 SECONDS (74-162)
== END ==
LOC: M LAB 09:48
PROVIDERS: ATTEND Physician Assistant
DX: M43.16 Spondylolisthesis, lumbar region (principal)
CPT/HCPCS: 36415; 85576; 85610; 85730; U0003

== ENCOUNTER → 2020-06-27 | Outpatient (CLI) | payer OTHER ==
--- NOTE | 2020-06-27 13:00 | REPPI ---
INDICATION: M79.641 PAIN IN BOTH HANDS. COMPARISON: Comparison right hand radiographs are from March 06, 2014.. TECHNIQUE: Eight views, 4 on each side. FINDINGS: Four views of the right hand demonstrate overall normal mineralization. There is osteoarthritis with joint space narrowing and spur formation at the 1st carpometacarpal articulation. Minimal spurring is seen at the IP joint of the thumb. Bones joints and soft tissues of the right hand are otherwise unremarkable. No erosive changes seen.. The right sided 1st PRISON joint osteoarthritic changes are somewhat more pronounced than on the 2014 study. Four views of the left hand show overall normal mineralization. There is osteoarthritic change at the 1st MCP joint on the left with joint space narrowing and spur formation. There is minimal spurring at the IP joint of the thumb. Mild spurring is seen in the left DIP joints of the index and small and ring fingers. No erosive changes. . IMPRESSION: Osteoarthritic changes bilaterally as noted above. <Electronically signed by Maxim Mandujano > 06/27/20 1257
[2020-06-27 14:11] LABS: CALCIUM LEVEL 9.6 MG/DL (8.5-10.1); CREATININE FOR GFR 1.02 MG/DL (0.55-1.30); GLOMERULAR FILTRATION RATE 59.5 (>51); POTASSIUM SERUM 4.4 MEQ/L (3.5-5.1)
== END ==
LOC: M PLAIMG 09:33
PROVIDERS: ATTEND Nurse Practitioner Family
DX: M79.641 Pain in right hand (principal)

== ENCOUNTER → 2020-06-27 | Outpatient (REF) | payer OTHER ==
[2020-06-27 13:36] LABS: BASO # 0.1 10^3/uL (0.0-0.2); BASO % 1.1 % (0.0-1.0); EOS # 0.1 10^3/uL (0.0-0.5); EOS % 1.8 % (0.0-3.0); HEMOGLOBIN 12.9 g/dl (12.0-15.5); LYMPH # 1.9 10^3/uL (1.5-5.0); LYMPH % 31.4 % (24.0-44.0); MEAN CORPUSCULAR HEMOGLOBIN 27.7 pg (27.0-33.0); MEAN CORPUSCULAR VOLUME 92.5 fl (80.0-96.0); MONO # 0.6 10^3/uL (0.0-0.8); NEUTROPHILS # 3.4 10^3/uL (1.5-8.5); NEUTROPHILS % 56.4 % (36.0-66.0); PLATELET COUNT, AUTOMATED 306 10^3/uL (150-450); RED BLOOD COUNT 4.65 10^6/uL (4.00-5.40); WHITE BLOOD COUNT 6.1 10^3/uL (4.0-10.0)
[2020-06-27 13:49] LABS: INR 1.02; PROTHROMBIN TIME 13.6 SECONDS (12.5-14.3)
[2020-06-27 13:50] LABS: PARTIAL THROMBOPLASTIN TIME 40.2 SECONDS (24.2-38.5)
[2020-06-27 14:12] LABS: ALBUMIN 3.4 GM/DL (3.2-5.2); BILIRUBIN,TOTAL 0.3 MG/DL (0.2-1.0); CALCIUM LEVEL 9.4 MG/DL (8.5-10.1); CHOLESTEROL RISK RATIO 4.826 (<5); CREATININE FOR GFR 1.03 MG/DL (0.55-1.30); FREE T4 0.9 NG/DL (0.76-1.46); GLOMERULAR FILTRATION RATE 58.8 (>51); POTASSIUM SERUM 4.3 MEQ/L (3.5-5.1); THYROID STIMULATING HORMONE 4.27 uIU/ML (0.358-3.740); TOTAL PROTEIN 7.3 GM/DL (6.4-8.2)
[2020-06-27 14:34] LABS: HEMOGLOBIN A1c 5.3 %
== END ==
LOC: M SFHCPLAZ 09:32
PROVIDERS: ATTEND Nurse Practitioner Family
DX: I48.20 Chronic atrial fibrillation, unspecified (principal); E78.5 Hyperlipidemia, unspecified; R79.89 Other specified abnormal findings of blood chemistry; Z13.228 Encounter for screening for other metabolic disorders

== ENCOUNTER → 2020-07-10 | Outpatient (CLI) | payer OTHER | LOC: M LABSMTC 10:01 | PROVIDERS: ATTEND Physical Medicine & Rehabilitation | DX: Z01.812 Encounter for preprocedural laboratory examination (principal); Z20.828 Contact with and (suspected) exposure to other viral communicable diseases ==

== ENCOUNTER 2020-09-04 12:21 | Emergency (ER) | payer OTHER ==
[~2020-09-04] VITALS: Ht 165.1 cm; Wt 103.8 kg
[~2020-09-04 12:21] MED LIST changes: -ATOR1TAB21; -OMEP40CA97 PO; -SUCR1TA PO
--- OUTSIDE RECORDS SUMMARY | 2020-09-04 12:27 | CCD ---
Author Author [facility] Organization [facility] Address Unknown Phone Unavailable Care Team Providers Care Manager Packaging Name Role Phone France Claros Unavailable PROBLEMS Type Condition ICD9-CM Code [id number] Code Onset Dates Condition S tatus SNOMED Code Notes Problem Anxiety F41.9 Active 91468912 Problem Obstructive sleep apnea (adult) (pediatric) G47.33 Active 55842384 Problem Chronic atrial fibrillation I48.20 Active 4267 12793 Problem Hyperlipidemia E78.5 Active 75115163 Problem Obesity (BMI 30-39.9) E66.9 Active 102207130 Problem KEMI (obstructive sleep apnea) G47.33 Active 78 809786 ALLERGIES No Known Allergies ENCOUNTERS from 1960 to 2020-07-02 Encounter Location Date Provider Diagnosis [address] [address] Jun, France Claros Chronic atrial fibrillation I48.20 ; KEMI (obstructive sleep apnea) G47.33 ; Obesity (BMI 30-39.9) E66.9 ; Pain in both hands M79.641 ; Colon cancer screening Z12.11 ; Cervical cancer screening Z12.4 ; Hyperlipidemia E78.5 ; Low TSH level R79.89 ; Screening for metabolic disorder Z13.228 ; Breast cancer screening Z12.39 ; Encounter for immunization Z23 ; Encounter to establish care Z76.89 and Anxiety F41.9 IMMUNIZATIONS Vaccine Route Administration Date Status Influenza (18 yrs & older) Flublok IM Intramuscular Jun 26, 2020 Administered SOCIAL HISTORY Tobacco Use: Social History Observation Description Date Details (start date - stop date) Never Smoker Sex Assigned At : Social History Observation Description Sex Assigned At Unknown Education: Question Answer Notes Level of Education: Finished College Language: Question Answer Notes Languages spoken: Upper Sorbian Baptism: Question Answer Notes [employer]ism [employer] Sexual Hx: Question Answer Notes Had sex in the last 12 months (vaginal, oral, or anal)? Yes LMP: n/a with Men only Alcohol Screening: Question Answer Notes Did you have a drink containing alcohol in the past year? No Points 0 Interpretation Negative Tobacco Use: Question Answer Notes Are you a: never smoker REASON FOR REFERRAL No Information VITAL SIGNS Weight 233 lbs Jun, Height 65 in Jun, BMI 38.77 kg/m2 Jun, Heart Rate 91 /min Jun, Respiratory Rate 18 /min Jun, Temperature 97.7 degrees Fahrenheit Jun, Oximetry 97% Jun, Blood pressure systolic 126 mm Hg Jun, Blood pressure diastolic 86 mm Hg Jun, MEDICATIONS Medication SIG (Take, Route, Frequency, Duration) Notes Start Da te End Date Status Atorvastatin Calcium 20 MG 1 tablet Orally Once a day for 30 day (s) Jun, Active Eliquis 5 MG TAKE 1 TABLET BY MOUTH TWICE DAILY Oral Active Fluoxetine HCl 40 MG take 1 capsule by mouth once daily Oral Daily for 90 day(s) Active Furosemide 40 MG TAKE 1 TABLET BY MOUTH 2 BALDEMAR ES A DAY FOR EDEMA OR SHORTNESS OF BREATH. 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 Mcneill. suboptimal p rep. repeat in 1 year 05/2018 Goals Section No Information Health Concerns No Information MEDICAL EQUIPMENT No Information MENTAL STATUS No Information FUNCTIONAL STATUS No Information ASSESSMENTS Encounter Date Diagnosis Assessment Notes Treatment Notes Treatm ent Clinical Notes Jun, Chronic atrial fibrillation (ICD-10 - I48.20) F/u with cardology Dr. Gray Jun, KEMI (obstructive sleep apnea) (ICD-10 - G47.33) f/u with pulmonology advised compliance with C-PAP Jun, Obesity (BMI 30-39.9) (ICD-10 - E66.9) encouraged weight loss Jun, Pain in both hands (ICD-10 - M79.641) obtain x-ray likely CTS referral to [facility] Jun, Colon cancer screening (ICD-10 - Z12.11) 05/2018 suboptimal bowel preparation Jun, Cervical cancer screening (ICD-10 - Z12.4) s/p hysterectomy Jun, Hyperlipidemia (ICD-10 - E78.5) obtain labs Jun, Low TSH level (ICD-10 - R79.89) obtain labs Jun, Screening for metabolic disorder (ICD-10 - Z13.2 28) screening Jun, Breast cancer screening (ICD-10 - Z12.39) order given Jun, Encounter for immunization (ICD-10 - Z23) flu vaccine Jun, Encounter to establish care (ICD-10 - Z76.89) establishing care Jun, Anxiety (ICD-10 - F41.9) PLAN OF TREATMENT Medication Medication Name Sig Start Date Stop Date Fluoxetine HCl 40 MG take 1 capsule by mouth once daily Oral Daily for 90 day(s) Atorvastatin Calcium 20 MG 1 tablet Orally Once a day for 30 day(s) Jun, Eliquis 5 MG TAKE 1 TABLET BY MOUTH TWICE DAILY Oral Treatment Notes Assessment Notes Clinical Notes Chronic atrial fibrillation F/u with car dology Dr. Gray KEMI (obstructive sleep apnea) f/u with p ulmonologyadvised compliance with C-PAP Obesity (BMI 30-39.9) encouraged weight loss Pain in both hands obtain x-raylikely C TSreferral to [facility] Colon cancer screening 05/2018 suboptima l bowel preparation Cervical cancer screening s/p hysterecto my Hyperlipidemia obtain labs Low TSH level obtain labs Screening for metabolic disorder screeni ng Breast cancer screening order given Encounter to establish care establishing care Encounter for immunization flu vaccine Treatment Notes Test Name Order Date PLZ Digital Mammo Screening Bilat 2020-07-02 Next Appt Details 4 Months f/u Reason: Provider Name:France Claros, 2020-10-22 02:30:00 PM, [address] [place], [address], Insurance Providers Payer Name Payer Address Payer Phone Insured Name Patient Relati onship to Insured Coverage Start Date Coverage End Date [employer] [address] [facility] [id number] [employer]
--- OUTSIDE RECORDS SUMMARY | 2020-09-04 12:27 | CCD ---
Author Author [facility] Organization [facility] Address Unknown Phone Unavailable Care Team Providers Care Z Os Mainframe Systems Programmer Name Role Phone France Claros Unavailable PROBLEMS Type Condition ICD9-CM Code VSL26-CO Code Onset Dates Condition S tatus SNOMED Code Notes Problem Hyperlipidemia E78.5 Active 63909352 Problem Obesity (BMI 30-39.9) E66.9 Active 378140811 Problem KEMI (obstructive sleep apnea) G47.33 Active 78 380612 Problem Insomnia G47.00 Active 653211935 Problem Vitamin D deficiency E55.9 Active 23180661 Problem Anxiety F41.9 Active 86781484 Problem Obstructive sleep apnea (adult) (pediatric) G47.33 Active 20718889 Problem Chronic atrial fibrillation I48.20 Active 4243 49244 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 Z79.01 A ctive [id number] ALLERGIES No Known Allergies ENCOUNTERS from 1960 to 2020-08-11 Encounter Location Date Provider Diagnosis [address] [address] 15 Jul, 2020 France Claros Chronic atrial fibrillation I48.20 ; Exe rcise intolerance R68.89 ; KEMI (obstructive sleep apnea) G47.33 ; Insomnia G47.00 ; Vitamin D deficiency E55.9 ; 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 Z79.01 and Hyperlipidemia E78.5 IMMUNIZATIONS Vaccine Route Administration Date Status Influenza (18 yrs & older) Flublok IM Intramuscular Jun 26, 2020 Administered SOCIAL HISTORY Tobacco Use: Social History Observation Description Date Details (start date - stop date) Never Smoker Sex Assigned At : Social History Observation Description Sex Assigned At Unknown Education: Question Answer Notes Level of Education: Finished College Language: Question Answer Notes Languages spoken: Somali Presybeterian: Question Answer Notes Presybeterian 08 Nondenominational Sexual Hx: Question Answer Notes Had sex in the last 12 months (vaginal, oral, or anal)? Yes LMP: n/a with Men only Alcohol Screening: Question Answer Notes Did you have a drink containing alcohol in the past year? No Points 0 Interpretation Negative Tobacco Use: Question Answer Notes Are you a: never smoker REASON FOR REFERRAL No Information VITAL SIGNS Weight 232 lbs Jul, Height 65 in Jul, BMI 38.60 kg/m2 Jul, Heart Rate 88 /min Jul, Respiratory Rate 16 /min Jul, Temperature 98.3 degrees Fahrenheit Jul, Oximetry 99 Jul, Blood pressure systolic 118 mm Hg Jul, Blood pressure diastolic 74 mm Hg Jul, MEDICATIONS Medication SIG (Take, Route, Frequency, Duration) Notes Start Da te End Date Status Atorvastatin Calcium 20 MG 1 tablet Orally Once a day for 30 day (s) Jun, Active Centrum - as directed Orally Active Fluoxetine HCl 40 MG take 1 capsule by mouth once daily Oral Daily for 90 day(s) Active Eliquis 5 MG TAKE 1 TABLET BY MOUTH TWICE DAILY Oral Active Furosemide 40 MG TAKE 1 TABLET BY MOUTH 2 BALDEMAR ES A DAY FOR EDEMA OR SHORTNESS OF BREATH. Orally Daily Active PROCEDURES No Information RESULTS No Results REASON FOR VISIT not sleeping MEDICAL (GENERAL) HISTORY Type Description Date Medical History A Fib Medical History Anxiety Medical History KEMI - CPAP since 2018 Surgical History pacemaker 2018 Surgical History hysterectomy Surgical History appendectomy Surgical History vericose vein removal Surgical History colonoscopy - Dr. Mcneill. suboptimal p rep. repeat in 1 year 05/2018 Goals Section No Information Health Concerns No Information MEDICAL EQUIPMENT No Information MENTAL STATUS No Information FUNCTIONAL STATUS No Information ASSESSMENTS Encounter Date Diagnosis Assessment Notes Treatment Notes Treatm ent Clinical Notes Jul, Chronic atrial fibrillation (ICD-10 - I48.20) F/u with cardology Dr. 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 (ICD-10 - Z79.01) s s/s of bleeding Jul, Hyperlipidemia (ICD-10 - E78.5) PLAN OF TREATMENT Medication Medication Name Sig Start Date Stop Date Eliquis 5 MG TAKE 1 TABLET BY MOUTH TWICE DAILY Oral Treatment Notes Assessment Notes Clinical Notes Chronic atrial fibrillation F/u with nii Shah placment in 2018 Exercise intolerance Needs cardilology w ork up to r/ostates will drive to Cardiology to find out today KEMI (obstructive sleep apnea) f/u with p ulmonologyadvised compliance with C-PAP Insomnia Needs cardiac/pulmon ology work up Vitamin D deficiency screening detention current use of anticoagulant s s/s of bleeding Future Test Test Name Order Date LIPID PANEL (CARDIAC RISK) [id number] FREE T4 & TSH PANEL [id number] VITAMIN D 25-HYDROXY 17653611 NT-PRO BNP [id number] Comprehensive Metabolic Profile (CMP) [id number] CBC with Differential [id number] Next Appt Details Reason: Provider Name:Francemisa Claros, 10-22 02:30:00 PM, [address] [place], [address], Insurance Providers Payer Name Payer Address Payer Phone Insured Name Patient Relati onship to Insured Coverage Start Date Coverage End Date [employer] [address] [facility] [id number] Imtiaz Shell
--- OUTSIDE RECORDS SUMMARY | 2020-09-04 12:27 | CCD | Continuity of Care Document ---
Author Author Barbi SMITH MD Organization Unknown Address [address] [place] [address], [facility] e [address] [place] [address] Phone [phone] Care Team Providers Care Non Destructive Tester Name Role Phone Yoli Sims PA-C AUTM [phone] Casandra Andrade MD AUTM [phone] Problems Description No Information Available Social History Type Date Description Comments Sex Unknown ETOH Use Denies alcohol use Tobacco Use Start: Unknown Denies Smoking Smoking Status Reviewed: 03/08/19 Denies Smoking Allergies, Adverse Reactions, Alerts Description No Known Drug Allergies Medications Active Medications SIG Qnty Indications Ordering Provide r Date Gabapentin 300mg Capsules 1 cap po qhs x1 week, then 1 cap po bid x1 week, then 1 cap po tid, then repeat until at 2 caps po tid 180caps M47.817 Arjun Smith MD 05/05/2019 Diclofenac Sodium 1% Gel apply to back as directed 4 grams three times a day 200gm M47.817 Arjun ty MD 05/05/2019 Eliquis 5mg Tablets 1 by mouth twice a day Unknown Fluoxetine HCL 40mg Capsules 1 by mouth every day Unknown Furosemide 20mg Tablets Unknown Metoprolol Succinate ER 200mg Tablets ER 24HR 1 by mouth every day Unknown 0 000 Amiodarone HCL 200mg Tablets Unknown Digoxin 125mcg Tablets Unknown Immunizations Description No Information Available Vital Signs Date Vital Result Comment 06/10/2020 6:05pm Body Temperature 96.8 F Height 65 inches 5'5" Weight 236.00 lb BMI (Body Mass Index) 39.3 kg/m2 03/08/2019 11:10am Height 65 inches 5'5" Weight 236.00 lb BMI (Body Mass Index) 39.3 kg/m2 Results Test Acquired Date Facility Test Result H/L Range Note Laboratory test finding 07/10/2020 [facility] [address] [place] [address] (315)- - Coronavirus 2019 Nasopharygeal This nucleic aci <SEE NOTE> 1 Laboratory test finding 05/16/2020 [facility] [address] [place] [address] (315)- - Coronavirus 2019 Nasopharygeal This nucleic aci <SEE NOTE> 2 Platelet Function Analysis 05/16/2020 [facility] [address] [place] [address] (315)- - Collagen Epinephrine 159 seconds Normal 74-162 3 Partial Thromboplastin Time 05/16/2020 [facility] [address] [place] [address] (315)- - Prothrombin Time 13.2 seconds Normal 12.5-14.3 Inr 0.98 Normal 4 Partial Thromboplastin Time 35.9 seconds Normal 24.2-38.5 Laboratory test finding 05/16/2020 [facility] [address] [place] [address] (315)- - Partial Thromboplastin Time <pending> 1 This nucleic acid amplificat ion test was developed and its performance characteristics determined by [facility]. Nucleic acid amplification tests include PCR and TMA. This test has not been FDA cleared or approved. This test has been authorized by FDA under an Emergency Use Authorization (EUA). This test is only authorized for the duration of time the declaration that circumstances exist justifying the authorization of the emergency use of in vitro diagnostic tests for detection of SARS-CoV-2 virus and/or diagnosis of COVID-19 infection under section 564(b)(1) of the Act, 21 U.S.C. 360bbb-3 (b) (1), unless the authorization is terminated or revoked sooner. When diagnostic testing is negative, the possibility of a false negative result should be considered in the context of a patient's recent exposures and the presence of clinical signs and symptoms consistent with COVID-19. An individual without symptoms of COVID-19 and who is not shedding SARS-CoV-2 virus would expect to have a negative (not detected) result in this assay. Performed at: [facility] [address] [facility], [place] [address] [id number] Brand Specialist: Praveena Fu PhD, Phone: [phone] Not Detected 2 This nucleic acid amplificat ion test was developed and its performance characteristics determined by [facility]. Nucleic acid amplification tests include PCR and TMA. This test has not been FDA cleared or approved. This test has been authorized by FDA under an Emergency Use Authorization (EUA). This test is only authorized for the duration of time the declaration that circumstances exist justifying the authorization of the emergency use of in vitro diagnostic tests for detection of SARS-CoV-2 virus and/or diagnosis of COVID-19 infection under section 564(b)(1) of the Act, 21 U.S.C. 360bbb-3 (b) (1), unless the authorization is terminated or revoked sooner. When diagnostic testing is negative, the possibility of a false negative result should be considered in the context of a patient's recent exposures and the presence of clinical signs and symptoms consistent with COVID-19. An individual without symptoms of COVID-19 and who is not shedding SARS-CoV-2 virus would expect to have a negative (not detected) result in this assay. Performed at: [address] [id number] Brand Specialist: Akosua Campbell MD, Phone: [phone] Not Detected 3 Results may be affected by p latelet counts less than 150,000/mL or hematocrits less than 35%. If COL/EPI is NORMAL, COL/ADP is not performed. Result Interpretation: COL/EPI COL/ADP NORMAL NORMAL NORMAL ASA ABNORMAL NORMAL vWD ABNORMAL NORMAL GLANZMANN'S ABNORMAL ABNORMAL THROMBASTHENIA POSSIBLE DRUG ABNORMAL ABNORMAL EFFECT 4 THERAPUTIC HUMAN INR VALUES INDICATIONS NORMAL RANGES PROPHYLAXIS/TREATMENT OF: VENOUS THROMBOSIS 2.0-3.0 PULMONARY EMBOLISM 2.0-3.0 PREVENTION OF SYSTEMIC EMBOLISM FROM: TISSUE HEART VALVES 2.0-3.0 ACUTE MYOCARDIAL INFARCTION 2.0-3.0 VALVULAR HEART DISEASE 2.0-3.0 ATRIAL FIBRILLATION 2.0-3.0 MECHANICAL VALVES(HIGH RISK) 2.5-3.5 RECURRENT MYOCARDIAL INFARCTION 2.5-3.5 Procedures Date Code Description Status 05/20/2020 91574 Moderate Sedation Se rvices; Same Phys Intl 15 Mins; PT >= 5 Years Completed 05/20/2020 09186 Epidurography Radiological Super vision & Interpretation Completed 05/20/2020 51311 Injec Anesthetic Age nt/Steroid Trans Epidural Lumb/Sacral Single Completed Medical Devices Description No Information Available Encounters Type Date Location Provider Dx Diagnosis Office Visit 06/10/2020 6:00p [facility] LATRELL Morgan M41.26 Other idiopathic scoliosis, lumbar region 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, lumbosacral region R20.2 Paresthesia of skin M79.604 Pain in right leg M79.605 Pain in left leg M43.16 Spondylolisthesis, lumbar re gion Office Visit 02/12/2020 1:00p [facility] LATRELL Morgan M41.26 Other idiopathic scoliosis, lumbar region 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, lumbosacral region R20.2 Paresthesia of skin M79.604 Pain in right leg M79.605 Pain in left leg M43.16 Spondylolisthesis, lumbar re gion Assessments Date Code Description Provider 06/10/2020 M41.26 Other idiopathic scoliosis, lumb ar region LATRELL Morgan 06/10/2020 M47.27 Other spondylosis with radiculop athy, lumbosacral region LATRELL Morgan 06/10/2020 R20.2 Paresthesia of skin LATRELL Donald 06/10/2020 M79.604 Pain in right leg LATRELL Renteria 06/10/2020 M79.605 Pain in left leg LATRELL Morgan 06/10/2020 M43.16 Spondylolisthesis, lumbar region LATRELL Morgan 05/20/2020 M47.896 Other spondylosis, lumbar region Arjun Smith MD 02/12/2020 M41.26 Other idiopathic scoliosis, lumb ar region LATRELL Morgan 02/12/2020 M47.27 Other spondylosis with radiculop athy, lumbosacral region LATRELL Morgan 02/12/2020 R20.2 Paresthesia of skin Darian Rochelle LATRE[facility] Loco 02/12/2020 M79.604 Pain in right leg LATRELL Renteria 02/12/2020 M79.605 Pain in left leg LATRELL Morgan 02/12/2020 M43.16 Spondylolisthesis, lumbar region LATRELL Morgan Plan of Treatment Future Appointment(s):* 08/07/2020 8:00 am - Arjun Smith MD at [facility] * 07/31/2020 10:00 am - LATRELL Morgan at [facility] 06/10/2020 - LATRE[facility] Morgan* M41.26 Other idiopathic scoliosis, lumbar region * M47.27 Other spondylosis with radiculopathy, lumbosacral region* Follow up:* 2-3 weeks after injections * R20.2 Paresthesia of skin * M79.604 Pain in right leg * M79.605 Pain in left leg * M43.16 Spondylolisthesis, lumbar region Functional Status Description No Information Available Mental Status Description No Information Available Referrals Refer to Dr Reason for Referral Status Appt Date Tati Lechuga PA-C ANDREIA INJ'S ([id number], [id number], AND [id number]) NO AUTH REQUIRED TO SURGERY NT Created [address] [facility] [address] [place], [place] [address] [phone]
--- OUTSIDE RECORDS SUMMARY | 2020-09-04 12:27 | CCD ---
Author Author [facility] Organization [facility] Address Unknown Phone Unavailable Care Team Providers Care Parts Cataloger Name Role Phone France Claros Unavailable PROBLEMS Type Condition ICD9-CM Code SRS80-IR Code Onset Dates Condition S tatus SNOMED Code Notes Problem Anxiety F41.9 Active 23673241 Problem Obstructive sleep apnea (adult) (pediatric) G47.33 Active 68805691 Problem Chronic atrial fibrillation I48.20 Active 4267 37671 Problem Hyperlipidemia E78.5 Active 47023279 Problem Obesity (BMI 30-39.9) E66.9 Active 739077373 Problem KEMI (obstructive sleep apnea) G47.33 Active 78 447410 ALLERGIES No Known Allergies ENCOUNTERS from 1960 to 2020-07-03 Encounter Location Date Provider Diagnosis [address] [address] Jun, France Proctorleeroy IMMUNIZATIONS Vaccine Route Administration Date Status Influenza (18 yrs & older) Flublok IM Intramuscular Jun 26, 2020 Administered SOCIAL HISTORY Tobacco Use: Social History Observation Description Date Details (start date - stop date) Never Smoker Sex Assigned At : Social History Observation Description Sex Assigned At Unknown Education: Question Answer Notes Level of Education: Finished College Language: Question Answer Notes Languages spoken: Mexican Cheondoism: Question Answer Notes Cheondoism 08 Religious Sexual Hx: Question Answer Notes Had sex in the last 12 months (vaginal, oral, or anal)? Yes LMP: n/a with Men only Alcohol Screening: Question Answer Notes Did you have a drink containing alcohol in the past year? No Points 0 Interpretation Negative Tobacco Use: Question Answer Notes Are you a: never smoker REASON FOR REFERRAL No Information VITAL SIGNS No information MEDICATIONS Medication SIG (Take, Route, Frequency, Duration) Notes Start Da te End Date Status Atorvastatin Calcium 20 MG 1 tablet Orally Once a day for 30 day (s) Jun, Active Eliquis 5 MG TAKE 1 TABLET BY MOUTH TWICE DAILY Oral Active Tobramycin 0.3 % INSTILL 2 DROPS INTO EACH EY E 4 TIMES DAILY FOR 7 DAYS Ophthalmic for 12 Active Dexamethasone 2 MG tablet Orally 2 tab x 3 days 1 tab for 4 days Once a day for 7 day(s) Jun, Active Furosemide 40 MG TAKE 1 TABLET BY MOUTH 2 BALDEMAR ES A DAY FOR EDEMA OR SHORTNESS OF BREATH. Orally Daily Active Fluoxetine HCl 40 MG take 1 capsule by mouth once daily Oral Daily for 90 day(s) Active PROCEDURES No Information RESULTS No Results REASON FOR VISIT Right hand pain MEDICAL (GENERAL) HISTORY Type Description Date Medical [...] No Information FUNCTIONAL STATUS No Information ASSESSMENTS No Information PLAN OF TREATMENT Medication Medication Name Sig Start Date Stop Date Dexamethasone 2 MG tablet Orally 2 tab x 3 days 1 tab for 4 days Once a day for 7 day(s) Jun, Atorvastatin Calcium 20 MG 1 tablet Orally Once a day for 30 day(s) Jun, Eliquis 5 MG TAKE 1 TABLET BY MOUTH TWICE DAILY Oral Fluoxetine HCl 40 MG take 1 capsule by mouth once daily Oral Daily for 90 day(s) Next Appt Details Provider Name:France Fitzpatrickkaty, 10-22 02:30:00 PM, [address] [place], [address], Insurance Providers Payer Name Payer Address Payer Phone Insured Name Patient Relati onship to Insured Coverage Start Date Coverage End Date [employer] [facility] [address] [facility] [phone] Imtiaz Shell
--- OUTSIDE RECORDS SUMMARY | 2020-09-04 12:27 | CCD ---
Author Author [facility] Organization [facility] Address Unknown Phone Unavailable Care Team Providers Care Locomotive Switch Operator Name Role Phone France Claros Unavailable PROBLEMS Type Condition ICD9-CM Code MMA64-AX Code Onset Dates Condition S tatus SNOMED Code Notes Problem Hyperlipidemia E78.5 Active 85262556 Problem Obesity (BMI 30-39.9) E66.9 Active 023406425 Problem KEMI (obstructive sleep apnea) G47.33 Active 78 788791 Problem Insomnia G47.00 Active 417972011 Problem Vitamin D deficiency E55.9 Active 78160224 Problem Anxiety F41.9 Active 10287953 Problem Obstructive sleep apnea (adult) (pediatric) G47.33 Active 89530041 Problem Chronic atrial fibrillation I48.20 Active 4246 95222 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.01 A ctive 771285971 ALLERGIES No Known Allergies ENCOUNTERS from 1960 to 2020-08-02 Encounter Location Date Provider Diagnosis [address] [address] Jul, France Michellekemimpleeroy IMMUNIZATIONS Vaccine Route Administration Date Status Influenza (18 yrs & older) Flublok IM Intramuscular Jun 26, 2020 Administered SOCIAL HISTORY Tobacco Use: Social History Observation Description Date Details (start date - stop date) Never Smoker Sex Assigned At : Social History Observation Description Sex Assigned At Unknown Education: Question Answer Notes Level of Education: Finished College Language: Question Answer Notes Languages spoken: Venezuelan Temple: Question Answer Notes Temple 08 Uatsdin Sexual Hx: Question Answer Notes Had sex [...] 1 TABLET BY MOUTH TWICE DAILY Oral Next Appt Details Provider Name:France Claros, 2020-10-22 02:30:00 PM, [address] [place], [address], Insurance Providers Payer Name Payer Address Payer Phone Insured Name Patient Relati onship to Insured Coverage Start Date Coverage End Date [facility] [address] [facility] [id number] Imtiaz Shell
--- OUTSIDE RECORDS SUMMARY | 2020-09-04 12:27 | CCD | Continuity of Care Document ---
Author Author Barbi SHEARER I PA Organization Unknown Address [address] [place] [address] Phone [phone] Care Team Providers Care Automated Equipment Engineer Technician Name Role Phone Yoli Sims PA-C AUTM [phone] Casandra Andrade MD AUTM [phone] Problems Description No Information Available Social History [...] 2 caps po tid 180caps M47.817 Arjun Sanders MD 05/05/2019 Diclofenac Sodium 1% Gel apply to back as directed 4 grams three times a day 200gm M47.817 Arjun ty MD 05/05/2019 Eliquis 5mg Tablets 1 by mouth twice a day Unknown Fluoxetine HCL 40mg Capsules 1 by mouth every day Unknown Furosemide 20mg Tablets Unknown Metoprolol Succinate ER 200mg Tablets ER 24HR 1 by mouth every day Unknown 000 Amiodarone HCL 200mg Tablets Unknown Digoxin [...] Result H/L Range Note Laboratory test finding 05/16/2020 [facility] [address] [place] [address] (315)- - Coronavirus 2019 Nasopharygeal This nucleic aci <SEE NOTE> 1 Platelet Function Analysis 05/16/2020 [facility] [address] [place] [address] (315)- - Collagen Epinephrine 159 seconds Normal 74-162 2 Partial Thromboplastin Time 05/16/2020 [facility] [address] [place] [address] (315)- - Prothrombin Time 13.2 seconds Normal 12.5-14.3 Inr 0.98 Normal 3 Partial Thromboplastin Time 35.9 seconds Normal 24.2-38.5 Laboratory test finding 05/16/2020 [facility] [address] [place] [address] (315)- - Partial Thromboplastin Time <pending> 1 This nucleic acid amplificat ion test was developed and its performance characteristics determined by [employer]. Nucleic acid amplification tests include PCR and [...] detected) result in this assay. Performed at: [address] [id number] End Matcher: Akosua Campbell MD, Phone: [phone] Not Detected 2 Results may be affected by p latelet counts less than 150,000/mL or hematocrits less than 35%. If COL/EPI is NORMAL, COL/ADP is not performed. Result Interpretation: COL/EPI COL/ADP NORMAL NORMAL NORMAL ASA ABNORMAL NORMAL vWD ABNORMAL NORMAL GLANZMANN'S ABNORMAL ABNORMAL THROMBASTHENIA POSSIBLE DRUG ABNORMAL ABNORMAL EFFECT 3 THERAPUTIC HUMAN INR VALUES INDICATIONS NORMAL RANGES PROPHYLAXIS/TREATMENT OF: VENOUS THROMBOSIS 2.0-3.0 PULMONARY EMBOLISM 2.0-3.0 PREVENTION OF SYSTEMIC EMBOLISM FROM: TISSUE HEART VALVES 2.0-3.0 ACUTE MYOCARDIAL INFARCTION 2.0-3.0 VALVULAR HEART DISEASE 2.0-3.0 ATRIAL FIBRILLATION 2.0-3.0 MECHANICAL VALVES(HIGH RISK) 2.5-3.5 RECURRENT MYOCARDIAL INFARCTION 2.5-3.5 Procedures Date Code Description Status 05/20/2020 76974 Moderate Sedation Se rvices; Same Phys Intl 15 Mins; PT >= 5 Years Completed 05/20/2020 80220 Epidurography Radiological Super vision & Interpretation Completed 05/20/2020 20717 Injec Anesthetic Age nt/Steroid Trans Epidural Lumb/Sacral Single Completed Medical Devices Description No Information Available Encounters Type Date Location Provider Dx Diagnosis Office Visit 06/10/2020 6:00p [facility] M41.26 Other idiopathic scoliosis, lumbar region 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, lumbosacral region R20.2 Paresthesia of skin M79.604 Pain in right leg M79.605 Pain in left leg M43.16 Spondylolisthesis, lumbar re gion Office Visit 02/12/2020 1:00p [facility] Stuart M41.26 Other idiopathic scoliosis, lumbar region M47.27 [...] LAT[facility] Morgan 06/10/2020 R20.2 Paresthesia of skin Darian M Poncho nance, PA 06/10/2020 M79.604 Pain in right leg Darian M LATRELL Navarro 06/10/2020 M79.605 Pain in left leg Darian M LATRE[facility] Shearer 06/10/2020 M43.16 Spondylolisthesis, lumbar region LATRELL Morgan 05/20/2020 M47.896 Other spondylosis, lumbar region Arjun Sanders MD 02/12/2020 M41.26 Other idiopathic scoliosis, lumb ar region LATRELL Morgan 02/12/2020 M47.27 Other spondylosis with radiculop athy, lumbosacral region LATRELL Morgan 02/12/2020 R20.2 Paresthesia of skin Darian M Poncho nance, LATRELL 02/12/2020 M79.604 Pain in right leg Darian M LATRELL Navarro 02/12/2020 M79.605 Pain in left leg Darian M LATRELL Shearer 02/12/2020 M43.16 Spondylolisthesis, lumbar region LATRELL Morgan Plan of Treatment 06/10/2020 - LAT[facility] Morgan* M41.26 Other idiopathic scoliosis, lumbar region * M47.27 Other spondylosis with radiculopathy, lumbosacral region* Follow up:* 2-3 weeks after injections * R20.2 Paresthesia of skin * M79.604 Pain in right leg * M79.605 Pain in left leg * M43.16 Spondylolisthesis, lumbar region Functional Status Description No Information Available Mental Status Description No Information Available Referrals Refer to Reason for Referral Status Appt Date Tati Lechuga PAChecoC ANDREIA INJ'S ([id number], [id number], AND 13970) NO AUTH REQUIRED TO SURGERY NT Created [address] [place] [address] [address] [place] [address] [phone]
--- OUTSIDE RECORDS SUMMARY | 2020-09-04 12:27 | CCD | Continuity of Care Document ---
Author Author Barbi SMITH MD Organization Unknown Address [address] [place] [address], [facility] e [address] [place] [id number] Phone [phone] Care Team Providers Care Director Of Restaurant Name Role Phone Yoli Sims PA-C AUTM [phone] Casandra Andrade MD AUTM [phone] Problems Description No Information Available Social History [...] H/L Range Note Laboratory test finding 07/10/2020 [facility] [address] [place] [address] (315)- - Coronavirus 2019 Nasopharygeal This nucleic aci <SEE NOTE> 1 Laboratory test finding 05/16/2020 [facility] [address] [place] [address] (315)- - Coronavirus 2019 Nasopharygeal This nucleic aci <SEE NOTE> 2 Platelet Function Analysis 05/16/2020 [facility] [address] [place] [address] (315)- - Collagen Epinephrine 159 seconds Normal 74-162 3 Partial Thromboplastin Time 05/16/2020 [facility] [address] [place] [address] (315)- - Prothrombin Time 13.2 seconds Normal 12.5-14.3 Inr 0.98 Normal 4 Partial Thromboplastin Time 35.9 seconds Normal 24.2-38.5 Laboratory test finding 05/16/2020 [facility] [address] [place] [address] (315)- - Partial Thromboplastin Time <pending> 1 This nucleic acid amplificat ion test was developed and its performance characteristics determined by [employer]. Nucleic acid amplification tests include PCR and [...] detected) result in this assay. Performed at: [facility] [address] [facility], [place] [id number] Washery Engineer: Praveena Fu PhD, Phone: [phone] Not Detected 2 This nucleic acid amplificat ion test was developed and its performance characteristics determined by [employer]. Nucleic acid amplification tests include PCR and [...] result in this assay. Performed at: [address] [id number] Washery Engineer: Akosua Campbell MD, Phone: [phone] Not Detected 3 Results may be affected [...] INFARCTION 2.5-3.5 Procedures Date Code Description Status 07/15/2020 17670 Moderate Sedation Services; Same Phys Each Additional 15 Mins Completed 07/15/2020 73294 Moderate Sedation Se rvices; Same Phys Intl 15 Mins; PT >= 5 Years Completed 07/15/2020 30753 Epidurography Radiological Super vision & Interpretation Completed 07/15/2020 64544 Injec Anesthetic Age nt/Steroid Trans Epidural Lumb/Sacral Single Completed 05/20/2020 18388 Moderate Sedation Se rvices; Same Phys Intl 15 Mins; PT >= 5 Years Completed 05/20/2020 71993 Epidurography Radiological Super vision & Interpretation Completed 05/20/2020 52787 Injec Anesthetic Age nt/Steroid Trans Epidural Lumb/Sacral Single Completed Medical Devices Description No Information Available Encounters Type Date Location Provider Dx Diagnosis Office Visit 06/10/2020 6:00p [place] LATRELL Morgan M41.26 Other idiopathic scoliosis, lumbar region 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, lumbosacral region R20.2 Paresthesia of skin M79.604 Pain in right leg M79.605 Pain in left leg M43.16 Spondylolisthesis, lumbar re gion Office Visit 02/12/2020 1:00p [place] LATRELL Morgan M41.26 Other idiopathic scoliosis, lumbar region 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, lumbosacral region R20.2 Paresthesia of skin M79.604 Pain in right leg M79.605 Pain in left leg M43.16 Spondylolisthesis, lumbar re gion Assessments Date Code Description Provider 07/15/2020 M47.896 Other spondylosis, lumbar region Arjun Smith MD 06/10/2020 M41.26 Other idiopathic scoliosis, lumb ar region LATRE[facility] Moragn 06/10/2020 M47.27 Other spondylosis with radiculop athy, lumbosacral region LATRELL Morgan 06/10/2020 R20.2 Paresthesia of skin LATRELL Donald 06/10/2020 M79.604 Pain in right leg LATRELL Renteria 06/10/2020 M79.605 Pain in left leg LATRELL Morgan 06/10/2020 M43.16 Spondylolisthesis, lumbar region LATRELL Morgan 05/20/2020 M47.896 Other spondylosis, lumbar region Arjun Smiht MD 02/12/2020 M41.26 Other idiopathic scoliosis, lumb ar region LATRELL Morgan 02/12/2020 M47.27 Other spondylosis with radiculop athy, lumbosacral region LATRELL Morgan 02/12/2020 R20.2 Paresthesia of skin Darian M [facility]oco 02/12/2020 M79.604 Pain in right leg Darian Rochelle LATRE[facility] Navarro 02/12/2020 M79.605 Pain in left leg LATRELL Morgan 02/12/2020 M43.16 Spondylolisthesis, lumbar region LATRELL Morgan Plan of Treatment Future Appointment(s):* 08/07/2020 8:00 am - Arjun Smith MD at [facility] * 07/31/2020 10:00 am - LATRELL Morgan at [facility] 06/10/2020 - LATRELL Morgan* M41.26 Other idiopathic [...] Appt Date Tati Lechuga PA-C ANDREIA INJ'S ([id number], [id number], AND [id number]) NO AUTH REQUIRED TO SURGERY NT Created [address] [facility] [address] [place] [address] [phone]
--- OUTSIDE RECORDS SUMMARY | 2020-09-04 12:28 | CCD ---
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 Name Role Phone Liz Gray MD Unavailable Unavailable Liz Gray MD Unavailable Unavailable Liz Gray MD Unavailable Unavailable Liz Gray MD Unavailable Unavailable Liz Gray MD Unavailable Unavailable Liz Gray MD Unavailable Unavailable Liz Gray MD Unavailable Unavailable Liz Gray MD Unavailable Unavailable Liz Gray MD Unavailable Unavailable Liz Gray MD Unavailable Unavailable Liz Gray MD Unavailable Unavailable Liz Gray MD Unavailable Unavailable Liz Gray MD Unavailable Unavailable Liz Gray MD Unavailable Unavailable Liz Gray MD Unavailable Unavailable Liz Gray MD Unavailable Unavailable Liz Gray MD Unavailable Unavailable Liz Gray MD Unavailable Unavailable Liz Gray MD Unavailable Unavailable Liz Gray MD Unavailable Unavailable Liz Gray MD Unavailable Unavailable Liz Gray MD Unavailable Unavailable Liz Gray MD Unavailable Unavailable Liz Gray MD Unavailable Unavailable Liz Gray MD Unavailable Unavailable SleLiz north MD Unavailable Unavailable SlezkaPacojtech MD Unavailable Unavailable SledallaskaMonettech Unavailable Unavailable SledallaskaMonettech Unavailable Unavailable SleMonet northtech Unavailable Unavailable SledallaskaPacojtech Unavailable Unavailable SlezkaPacojtech Unavailable Unavailable SlezkaPacojtech Unavailable Unavailable SledallaskaPacojtech Unavailable Unavailable SledallaskaPacojtech Unavailable Unavailable SledallaskaPacojtech Unavailable Unavailable SledallaskaPacojtech Unavailable Unavailable SlezkaPacojtech Unavailable Unavailable SlezkaPacojtech Unavailable Unavailable SledallaskaPacojtech Unavailable Unavailable SledallaskaMonettech Unavailable Unavailable SlePaco northjtech Unavailable Unavailable SleLiz north MD Unavailable Unavailable SlePaco northjtech Unavailable Unavailable SlePaco northjtech Unavailable Unavailable SlePaco northjtech Unavailable Unavailable SleLiz north MD Unavailable Unavailable SleLiz north MD Unavailable Unavailable SleLiz north MD Unavailable Unavailable SleMonet northtech Unavailable Unavailable SlePaco northjtech Unavailable Unavailable SlePaco northjtech Unavailable Unavailable SleLiz north MD Unavailable Unavailable SleLiz north MD Unavailable Unavailable SleLiz north MD Unavailable Unavailable SleMonet northtech Unavailable Unavailable SleMonet northtech Unavailable Unavailable SledallaskaPacojtech MD Unavailable Unavailable Bib Callahan PA Unavailable Unavailable Bib Callahan PA Unavailable Unavailable Bib Callahan PA Unavailable Unavailable Bib Callahan PA Unavailable Unavailable Bib Callahan PA Unavailable Unavailable Bib Callahan PA Unavailable Unavailable Bib Callahan PA Unavailable Unavailable Bib Callahan PA Unavailable Unavailable Bib Callahan PA Unavailable Unavailable Bib Callahan PA Unavailable Unavailable Bib Callahan PA Unavailable Unavailable Bib Callahan PA Unavailable Unavailable Bib Callahan PA Unavailable Unavailable Bib Callahan PA Unavailable Unavailable Bib Callahan PA Unavailable Unavailable Bib Callahan PA Unavailable Unavailable Bib Callahan PA Unavailable Unavailable Bib Callahan PA Unavailable Unavailable Callahan, L Марина PA Unavailable Unavailable Callahan, L Марина PA Unavailable Unavailable Callahan, L Марина PA Unavailable Unavailable Callahan, L Марина PA Unavailable Unavailable Callahan, L Марина PA Unavailable Unavailable Callahan, L Марина PA Unavailable Unavailable Calalhan, L Марина PA Unavailable Unavailable Callahan, L Марина PA Unavailable Unavailable Callahan, L Марина PA Unavailable Unavailable Callahan, L Марина PA Unavailable Unavailable Callahan, L Марина PA Unavailable Unavailable Callahan, L Марина PA Unavailable Unavailable Callahan, L Марина PA Unavailable Unavailable Callahan, L Марина PA Unavailable Unavailable Callahan, L Марина PA Unavailable Unavailable Callahan, L Марина PA Unavailable Unavailable Callahan, L Марина PA Unavailable Unavailable Callahan, L Марина PA Unavailable Unavailable JANNET, M RAZA PA Unavailable Unavailable JANNET, M RAZA PA Unavailable Unavailable JANNET, M RAZA PA Unavailable Unavailable JANNET, M RAZA PA Unavailable Unavailable JANNET, M RAZA PA Unavailable Unavailable JANNET, M RAZA PA Unavailable Unavailable JANNET, M RAZA PA Unavailable Unavailable JANNET, M RAZA PA Unavailable Unavailable JANNET, M RAZA PA Unavailable Unavailable JANNET, M RAZA PA Unavailable Unavailable JANNET, M RAZA PA Unavailable Unavailable JANNET, M RAZA PA Unavailable Unavailable JANNET, M RAZA PA Unavailable Unavailable JANNET, M RAZA PA Unavailable Unavailable JANNET, M RAZA PA Unavailable Unavailable JANNET, M RAZA PA Unavailable Unavailable JANNET, M RAZA PA Unavailable Unavailable JANNET, M RAZA PA Unavailable Unavailable JANNET, M RAZA PA Unavailable Unavailable JANNET, M RAZA PA Unavailable Unavailable JANNET, M RAZA PA Unavailable Unavailable JANNET, M RAZA PA Unavailable Unavailable JANNET, M RAZA PA Unavailable Unavailable JANNET, M RAZA PA Unavailable Unavailable Sanders, Arjun Unavailable Unavailable Sanders, Arjun Unavailable Unavailable Sanders, Arjun Unavailable Unavailable Sanders, Arjun Unavailable Unavailable Sanders, Arjun Unavailable Unavailable Sanders, Arjun Unavailable Unavailable Sanders, Arjun Unavailable Unavailable Sanders, Arjun Unavailable Unavailable Sanders, Arjun Unavailable Unavailable Sanders, Arjun Unavailable Unavailable Sanders, Arjun Unavailable Unavailable Sanders, Arjun Unavailable Unavailable Sanders, Arjun Unavailable Unavailable Sanders, Arjun Unavailable Unavailable Sanders, Arjun Unavailable Unavailable Sanders, Arjun Unavailable Unavailable Sanders, Arjun Unavailable Unavailable Sanders, Arjun Unavailable Unavailable Sanders, Arjun Unavailable Unavailable Sanders, Arjun Unavailable Unavailable Sanders, Arjun Unavailable Unavailable Sanders, Arjun Unavailable Unavailable Sanders, Arjun Unavailable Unavailable Sanders, Arjun Unavailable Unavailable Sanders, Arjun Unavailable Unavailable Sanders, Arjun Unavailable Unavailable Sanders, Arjun Unavailable Unavailable Sanders, Arjun Unavailable Unavailable Sanders, Arjun Unavailable Unavailable Sanders, Arjun Unavailable Unavailable Sanders, Arjun Unavailable Unavailable Sanders, Arjun Unavailable Unavailable Sanders, Arjun Unavailable Unavailable Sanders, Arjun Unavailable Unavailable Sanders, Arjun Unavailable Unavailable Sanders, Arjun Unavailable Unavailable Sanders, Arjun Unavailable Unavailable Sanders, Arjun Unavailable Unavailable Sanders, Arjun Unavailable Unavailable Sanders, Arjun Unavailable Unavailable Sanders, Arjun Unavailable Unavailable Sanders, Arjun Unavailable Unavailable Sanders, Arjun Unavailable Unavailable Sanders, Arjun Unavailable Unavailable Sanders, Arjun Unavailable Unavailable Sanders, Arjun Unavailable Unavailable Sanders, Arjun Unavailable Unavailable Sanders, Arjun Unavailable Unavailable Sanders, Arjun Unavailable Unavailable Sanders, Arjun Unavailable Unavailable Sanders, Arjun Unavailable Unavailable Sanders, Arjun Unavailable Unavailable Sanders, Arjun Unavailable Unavailable Sanders, Arjun Unavailable Unavailable Sanders, Arjun Unavailable Unavailable Sanders, Arjun Unavailable Unavailable Sanders, Arjun Unavailable Unavailable Sanders, Arjun Unavailable Unavailable Sanders, Arjun Unavailable Unavailable Sanders, Arjun Unavailable Unavailable Sanders, Arjun Unavailable Unavailable Sanders, Arjun Unavailable Unavailable Sanders, Arjun Unavailable Unavailable Sanders, Arjun Unavailable Unavailable Sanders, Arjun Unavailable Unavailable Sanders, Arjun Unavailable Unavailable Sanders, Arjun Unavailable Unavailable Sanders, Arjun Unavailable Unavailable Sanders, Arjun Unavailable Unavailable Sanders, Arjun Unavailable Unavailable Sanders, Arjun Unavailable Unavailable Sanders, Arjun Unavailable Unavailable Sanders, Arjun Unavailable Unavailable Sanders, Arjun Unavailable Unavailable Sanders, Arjun Unavailable Unavailable Sanders, Arjun Unavailable Unavailable Sanders, Arjun Unavailable Unavailable Sanders, Arjun Unavailable Unavailable Sanders, Arjun Unavailable Unavailable Sanders, Arjun Unavailable Unavailable Sanders, Arjun Unavailable Unavailable Sanders, Arjun Unavailable Unavailable Sanders, Arjun Unavailable Unavailable Sanders, Arjun Unavailable Unavailable Sanders, Arjun Unavailable Unavailable Sanders, Arjun Unavailable Unavailable Sanders, Arjun Unavailable Unavailable Sanders, Arjun Unavailable Unavailable AHMED, J ZHAO MD Unavailable Unavailable AHMED, J ZHAO MD Unavailable Unavailable AHMED, J ZHAO MD Unavailable Unavailable AHMED, J ZHAO MD Unavailable Unavailable AHMED, J ZHAO MD Unavailable Unavailable AHMED, J ZHAO MD Unavailable Unavailable AHMED, J ZHAO MD Unavailable Unavailable AHMED, J ZHAO MD Unavailable Unavailable AHMED, J ZHAO MD Unavailable Unavailable AHMED, J ZHAO MD Unavailable Unavailable AHMED, J ZHAO MD Unavailable Unavailable AHMED, J ZHAO MD Unavailable Unavailable AHMED, J ZHAO MD Unavailable Unavailable AHMED, J ZHAO MD Unavailable Unavailable AHMED, J ZHAO MD Unavailable Unavailable AHMED, J ZHAO MD Unavailable Unavailable AHMED, J ZHAO MD Unavailable Unavailable AHMED, J ZHAO MD Unavailable Unavailable AHMED, J ZHAO MD Unavailable Unavailable AHMED, J ZHAO MD Unavailable Unavailable AHMED, J ZHAO MD Unavailable Unavailable AHMED, J ZHAO MD Unavailable Unavailable AHMED, J ZHAO MD Unavailable Unavailable AHMED, J ZHAO MD Unavailable Unavailable AHMED, J ZHAO MD Unavailable Unavailable AHMED, J ZHAO MD Unavailable Unavailable AHMED, J ZHAO MD Unavailable Unavailable AHMED, J ZHAO MD Unavailable Unavailable AHMED, J ZHAO MD Unavailable Unavailable AHMED, J ZHAO MD Unavailable Unavailable AHMED, J ZHAO MD Unavailable Unavailable AHMED, J ZHAO MD Unavailable Unavailable AHMED, J ZHAO MD Unavailable Unavailable AHMED, J ZHAO MD Unavailable Unavailable AHMED, J ZHAO MD Unavailable Unavailable AHMED, J ZHAO MD Unavailable Unavailable AHMED, J ZHAO MD Unavailable Unavailable AHMED, J ZHAO MD Unavailable Unavailable AHMED, J ZHAO MD Unavailable Unavailable AHMED, J ZHAO MD Unavailable Unavailable AHMED, J ZHAO MD Unavailable Unavailable AHMED, J ZHAO MD Unavailable Unavailable AHMED, J ZHAO MD Unavailable Unavailable AHMED, J ZHAO MD Unavailable Unavailable AHMED, J ZHAO MD Unavailable Unavailable AHMED, J ZHAO MD Unavailable Unavailable AHMED, J ZHAO MD Unavailable Unavailable AHMED, J ZHAO MD Unavailable Unavailable AHMED, J ZHAO MD Unavailable Unavailable AHMED, J ZHAO MD Unavailable Unavailable AHMED, J ZHAO MD Unavailable Unavailable AHMED, J ZHAO MD Unavailable Unavailable AHMED, J ZHAO MD Unavailable Unavailable AHMED, J ZHAO MD Unavailable Unavailable AHMED, J ZHAO MD Unavailable Unavailable AHMED, J ZHAO MD Unavailable Unavailable AHMED, J ZHAO MD Unavailable Unavailable AHMED, J ZHAO MD Unavailable Unavailable AHMED, J ZHAO MD Unavailable Unavailable AHMED, J ZHAO MD Unavailable Unavailable AHMED, J ZHAO MD Unavailable Unavailable AHMED, J ZHAO MD Unavailable Unavailable AHMED, J ZHAO MD Unavailable Unavailable AHMED, J ZHAO MD Unavailable Unavailable AHMED, J ZHAO MD Unavailable Unavailable AHMED, J ZHAO MD Unavailable Unavailable AHMED, J ZHAO MD Unavailable Unavailable AHMED, J ZHAO MD Unavailable Unavailable AHMED, J ZHAO MD Unavailable Unavailable AHMED, J ZHAO MD Unavailable Unavailable AHMED, J ZHAO MD Unavailable Unavailable AHMED, J ZHAO MD Unavailable Unavailable AHMED, J ZHAO MD Unavailable Unavailable AHMED, J ZHAO MD Unavailable Unavailable AHMED, J ZHAO MD Unavailable Unavailable AHMED, J ZHAO CHAMORRO Unavailable Unavailable Kristine SLOAN MD Unavailable Unavailable Kristine SLOAN MD Unavailable Unavailable [place], 0000{ Unavailable Unavailable JANNET, M RAZA PA Unavailable Unavailable JANNET, M RAZA PA Unavailable Unavailable JANNET, M RAZA PA Unavailable Unavailable JANNET, M RAZA PA Unavailable Unavailable JANNET, M RAZA PA Unavailable Unavailable JANNET, M RAZA PA Unavailable Unavailable JANNET, M RAZA PA Unavailable Unavailable JANNET, M RAZA PA Unavailable Unavailable JANNET, M RAZA PA Unavailable Unavailable JANNET, M RAZA PA Unavailable Unavailable JANNET, M RAZA PA Unavailable Unavailable JANNET, M RAZA PA Unavailable Unavailable JANNET, M RAZA PA Unavailable Unavailable JANNET, M RAZA PA Unavailable Unavailable JANNET, M RAZA PA Unavailable Unavailable JANNET, M RAZA PA Unavailable Unavailable JANNET, M RAZA PA Unavailable Unavailable JANNET, M RAZA PA Unavailable Unavailable JANNET, M RAZA PA Unavailable Unavailable JANNET, M RAZA PA Unavailable Unavailable JANNET, M RAZA PA Unavailable Unavailable JANNET, M RAZA PA Unavailable Unavailable JANNET, M RAZA PA Unavailable Unavailable JANNET, M RAZA PA Unavailable Unavailable Re-disclosure Warning The records that you are about to access may contain information from federally-assisted alcohol or drug abuse programs. If such information is present, then the following federally mandated warning applies: This information has been disclosed to you from records protected by federal confidentiality rules (42 CFR part 2). The federal rules prohibit you from making any further disclosure of this information unless further disclosure is expressly permitted by the written consent of the person to whom it pertains or as otherwise permitted by 42 CFR part 2. A general authorization for the release of medical or other information is NOT sufficient for this purpose. The Federal rules restrict any use of the information to criminally investigate or prosecute any alcohol or drug abuse patient.The records that you are about to access may contain highly sensitive health information, the redisclosure of which is protected by Article 27-F of the [facility] Public Health law. If you continue you may have access to information: Regarding HIV / AIDS; Provided by facilities licensed or operated by the [facility] Office of Mental Health; or Provided by the [facility] Office for People With Developmental Disabilities. If such information is present, then the following [facility] mandated warning applies: This information has been disclosed to you from confidential records which are protected by state law. State law prohibits you from making any further disclosure of this information without the specific written consent of the person to whom it pertains, or as otherwise permitted by law. Any unauthorized further disclosure in violation of state law may result in a fine or detention sentence or both. A general authorization for the release of medical or other information is NOT sufficient authorization for further disc losure. Allergies and Adverse Reactions Type Description Substance Reaction Status Data Source(s ) Drug Class NO KNOWN ALLERGIES NO KNOWN ALLERGIES [facility] Family History Family Member Name Family Member Gender Family Member Status Date o f Status Description Data Source(s) Unknown Male Problem [facility] ([facility], ) () Unknown Unknown Problem [facility] ([facility] Unknown Unknown Problem [facility] ([facility]) Encounters Encounter Providers Location Date Indications Data Source(s ) Outpatient Attender: Марина GRAVESJOSE M-SJP.JOSE M 12:00:00 AM EST - 08/09/2020 01:59:26 PM EST [facility] Outpatient [address] [facility] [id number] 08/02/2020 12:00:00 AM EST eCW1 ([facility]) Unknown [address] [facility] [id number] 08/01/2020 12:00:00 AM EST eCW1 ([facility]) Unknown [address] [facility] [id number] 07/03/2020 12:00:00 AM EST eCW1 ([facility]) Outpatient CT-[email or web address].SYR 06/28/2020 09:33:01 AM EST [facility] [address] [facility] [id number] 06/26/2020 12:00:00 AM EST eCW1 ([facility]) Outpatient Attender: RAZA SAMS Physical Therapy 05/20 05:00:00 PM EST [facility] Outpatient Attender: ZHAO SLOAN MDAdmitter: ZHAO SLOAN MD [id number] 03/29/2020 10:58:30 AM EDT - 04/01/2020 01:43:00 PM EDT Atrial fibrillation, unspecified type [I48.91] [facility] Atrial fibrillation, unspecified type [I 48.91] Patient discharged. Outpatient [id number].SYR 03/21/2020 09:35:31 AM EDT [facility] Outpatient Referrer: Марина GRAVESJOSE M-SJP.JOSE M 12:00:00 AM EDT [facility] Outpatient Attender: RAZA SAMS Physical Therapy 01/17 01:00:00 PM EDT [facility] ([facility]) Outpatient Attender: Sandra HO 02/02/2020 09:47:00 AM E DT [facility] Outpatient Attender: Arjun Sanders 02/02/2020 09:47:0 0 AM EDT PRESENCE OF CARDIAC PACEMAKER/ OTHER SPONDYLOSIS, LUMBAR REG [facility] PRESENCE OF CARDIAC PACEMAKER/ OTHER SPO NDYLOSIS, LUMBAR REG Outpatient Attender: Марина GRAVESJOSE M-SJP.JOSE M 01:49:44 PM EDT - 01/09/2020 02:49:29 PM EDT [facility] Outpatient [id number]-[email or web address].SYR 12/14/2019 04:04:19 PM EDT [facility] Outpatient Attender: Марина LINO-SJP.JOSE M 12:00:00 AM EDT - 11/30/2019 11:58:00 AM EDT [facility] Outpatient Attender: Марина GRAVESJOSE M-SJMiguel.JOSE M 08:06:59 AM EDT - 11/09/2019 03:34:43 PM EDT [facility] Outpatient Attender: Arjun Sanders Physical Therapy 10/23/2019 09:00:0 0 AM EDT [facility] ([facility]) Outpatient Attender: RAZA SAMS Physical Therapy 09/17 09:00:00 AM EDT [facility] ([facility]) Outpatient Attender: ZHAO SLOAN MDAdmi tter: ZHAO SLOAN MDReferrer: ZHAO SLOAN MD [email or web address] 09/20/2019 05:54:00 AM EST - 09/20/2019 01:27:00 PM [facility] Patient discharged. Outpatient HOLLAND-SJP 09/09/2019 05:15:50 PM [facility] Outpatient Attender: Марина GRAVESJOSE M-SJP.JOSE M 12:00:00 AM EST - 09/07/2019 08:49:40 AM [facility] Outpatient Referrer: Liz GRAVESJOSE M-SJP.JOSE M 08/20 12:00:00 AM [facility] Outpatient [id number] 09/05/2019 09:07:25 AM [facility] Outpatient Referrer: RAZA SAMS 08/25/2019 12: 00:00 AM [facility] Spondylosis without myelopathy or radiculopathy, lumbosacral region [facility] Spondylosis without myelopathy or radicu lopathy, lumbosacral region Outpatient Referrer: RAZA SAMS 08/25/2019 12:00:00 AM [facility] Outpatient Referrer: RAZA SAMS 08/10/2019 12:00:00 AM [facility] Immunizations Vaccine Date Status Description Data Source(s) influenza, recombinant, quadrIvalent,injectable, prese rvative free 06/26/2020 03:12:00 PM EST completed eCW1 ([facility]) influenza, recombinant, quadrIvalent,injectable, prese rvative free 06/26/2020 03:12:00 PM EST completed eCW1 ([facility]) influenza, recombinant, quadrIvalent,injectable, prese rvative free 06/26/2020 03:12:00 PM EST completed eCW1 ([facility]) influenza, recombinant, quadrIvalent,injectable, prese rvative free 06/26/2020 03:12:00 PM EST completed eCW1 ([facility]) Medications Medication Brand Name Start Date Product Form Dose Route Admi nistrative Instructions Pharmacy Instructions Status Indications Reaction Description Data Source(s) Dexamethasone 2 MG Oral Tablet Dexamethasone 2 MG 07/03/2020 12:00: 00 AM EST active Dexamethasone 2 MG eCW1 ([facility]) atorvastatin 20 MG Oral Tablet Atorvastatin Calcium 20 MG Atorvastatin Calcium 20 MG 06/28/2020 12:00:00 AM EST 1.0 {tablet} activ e Atorvastatin Calcium 20 MG eCW1 ([facility]) atorvastatin 20 MG Oral Tablet Atorvastatin Calcium 20 MG Atorvastatin Calcium 20 MG 06/28/2020 12:00:00 AM EST 1.0 {tablet} activ e Atorvastatin Calcium 20 MG eCW1 ([facility]) atorvastatin 20 MG Oral Tablet Atorvastatin Calcium 20 MG Atorvastatin Calcium 20 MG 06/28/2020 12:00:00 AM EST 1.0 {tablet} activ e Atorvastatin Calcium 20 MG eCW1 ([facility]) atorvastatin 20 MG Oral Tablet Atorvastatin Calcium 20 MG Atorvastatin Calcium 20 MG 06/28/2020 12:00:00 AM EST 1.0 {tablet} activ e Atorvastatin Calcium 20 MG eCW1 ([facility]) Acetaminophen 325 MG Oral Tablet acetaminophen (TYLENO L) tablet 650 mg acetaminophen (TYLENOL) tablet 650 mg 04/01/2020 12:26:02 PM EDT 65 0 mg Oral active 650 mg, Oral, E very 6 hours PRN, Mild Pain (Pain Scale Score 1- 3), Pain, Starting 04/01/20 at 1226, For 30 days
Maximum daily dose of acetaminophen is 3000 mg from all sources in 24 hours.
[facility] Medication administered onsite NaCl infusion 0.9 % 3744-0184-54 04/01/2020 11:00:00 AM EDT 1000 mL Intravenous aborted at 75 mL/hr, Intravenous, Continuous, Starting 04/01/20 at 1100, For 4 hours, Pre-op [facility] Medication administered onsite Furosemide 20 MG Oral Tablet Furosemide 04/01/2020 12:00:00 AM EDT ORAL active [facility] ([facility] Diphenhydramine Hydrochloride 25 MG Oral Capsule [Benadryl] Benadryl Allergy 04/01/2020 12:00:00 AM EDT ORAL active [facility] ([facility] apixaban 5 MG Oral Tablet Apixaban (ELIQUIS) 5 MG TABS tablet Apixaban (ELIQUIS) 5 MG TABS tablet 03/12/2020 12:00:00 AM EDT 5 mg Oral active Take 1 tablet (5 mg total) by mouth 2 (two) times a day [facility] Polymyxin B 95934 UNT/ML / Trimethoprim 1 MG/ML Ophtha lmic Solution [Polytrim] Polytrim 10/16/2019 12:00:00 AM EDT active [facility] ([facility] 24 HR metoprolol succinate 200 MG Extend ed Release Oral Tablet metoprolol (TOPROL-XL) 200 MG 24 hr tablet metoprolol (TOPROL-XL) 200 MG 24 hr tablet 10/03/2019 12:00:00 AM EDT 200 mg Oral aborted Take 1 tablet (200 mg total) by mouth once daily [facility] Amiodarone hydrochloride 200 MG Oral Tablet amiodarone (PACERONE) 200 MG tablet amiodarone (PACERONE) 200 MG tablet 10/03/2019 12:00:00 AM EDT 200 mg Oral aborted Take 1 tablet (200 mg total) by mouth daily [facility] ondansetron (ZOFRAN) injection 4 mg 10852-895-97 09/20/2019 10:42:1 7 AM EST 4 mg Intravenous active 4 mg, In travenous, Every 8 hours PRN, nausea, vomiting, Starting Wed09/20/19 at 1042, Post-op [facility] Medication administered onsite Acetaminophen 325 MG Oral Tablet acetaminophen (TYLENO L) 325 MG tablet 650 mg acetaminophen (TYLENOL) 325 MG tablet 650 mg 09/20/2019 10:42:17 AM EST 650 mg Oral active 650 mg, Or al, Every 6 hours PRN, mild pain (1-3), Starting Wed09/20/19 at 1042, Post-op
"Maximum dose of acetaminophen is 4,000 mg from all sources in 24 hours."
[facility] Medication administered onsite iopamidol (ISOVUE-370) 76 % [id number] 09/20/2019 09:54:52 AM EST active As needed, Starting Wed09/20/19 at 0954, Intra-Procedur e [facility] Medication administered onsite lidocaine (PF) (XYLOCAINE-MPF) 1 % injection [id number] 10/2019 09:10:20 AM EST active As needed, Start ing Wed09/20/19 at 0910, Intra-Procedure [facility] Medication administered onsite fentaNYL Citrate (PF) (SUBLIMAZE) injection 9290-2167-38 09/20/2019 08:47:35 AM EST active As neede d, Starting Wed09/20/19 at 0847, Intra-Procedure [facility] Medication administered onsite 2 ML Midazolam 1 MG/ML Injection midazolam (VERSED) in jection midazolam (VERSED) injection 09/20/2019 08:47:28 AM EST active As needed, Starting Wed09/20/19 at 0847, Intra-Procedure [facility] Medication administered onsite Dexmedetomidine HCl 400 mcg in sodium chloride (NS) 0.9 % 10 0 mL infusion 09/20/2019 08:47:10 AM EST active Intra-Procedure, Intra-op continuous PRN, Starting Wed09/20/19 at 0847, Until Discontinued [facility] Medication administered onsite Benzocaine 200 MG/ML Mucous Membrane Top ical Solution benzocaine (HURRICAINE) 20 % mouth spray benzocaine (HURRICAINE) 20 % mouth spray 09/20/2019 08 :36:19 AM EST active Intra-Pr ocedure, As needed, Starting Wed09/20/19 at 0836, Until Discontinued [facility] Medication administered onsite lidocaine (XYLOCAINE) 4 % external solution [id number] 09/20/2019 08:36:00 AM EST active Intra-Pr ocedure, As needed, Starting Wed09/20/19 at 0836, Until Discontinued [facility] Medication administered onsite Furosemide 20 MG Oral Tablet furosemide (LASIX) 20 MG tablet furosemide (LASIX) 20 MG tablet 05/05/2019 12:00:00 AM EDT 20 mg Oral activ e Take 1 tablet (20 mg total) by mouth daily as needed [facility] 24 HR metoprolol succinate 200 MG Extend ed Release Oral Tablet metoprolol succinate (TOPROL-XL) 200 MG 24 hr tablet metoprolol succinate (TOPROL-XL) 200 MG 24 hr tablet 05/03/2019 12:00:00 AM EDT 200 mg Oral ac tive Take 1 tablet (200 mg total) by mouth once daily [facility] 24 HR metoprolol succinate 200 MG Extend ed Release Oral Tablet Metoprolol Succinate ER 200 MG Oral Tablet Extended Release 24 Hour (TOPROL-XL) Metoprolol Succinate ER 200 MG Oral Tablet Extended Release 24 Hour (TOPROL-XL) 200 mg Oral aborted Take 200 mg by mouth daily [facility] gabapentin 300 MG Oral Capsule gabapentin (NEURONTIN) 300 MG capsule gabapentin (NEURONTIN) 300 MG capsule 600 mg Oral aborted Take 600 mg by mouth 3 (three) times a day [facility] Digoxin 0.125 MG Oral Tablet digoxin (LANOXIN) 125 MCG tablet digoxin (LANOXIN) 125 MCG tablet 125 ug Oral aborted Take 125 mcg by mouth daily [facility] Digoxin 0.125 MG Oral Tablet Digoxin 125 MCG Oral Tabl et (LANOXIN) Digoxin 125 MCG Oral Tablet (LANOXIN) 125 ug Oral aborted Take 125 mcg by mouth daily [facility] Insurance Providers Payer name Policy type / Coverage type Policy ID Covered republican ID Covered republican's relationship to [place] Policy [place] Plan Information FOR LIFE [id number] 2 [id number] Spo [id number] FOR LIFE O [id number] S [id number] EAST HUMANA [id number] [id number] EAST HUMANA [id number] 2 [id number] HUMANA EAST REG O [id number] S [id number] U [id number] Self [id number] HEA [id number] HEA [id number] S [id number] EXCELLUS BCBS [id number] Spo OEC [id number] EXCELLUS BCBS [id number] Spo [id number] FOR LIFE U [id number] Self [id number] [facility] 362 [id number] HU2 [id number] EXCELLUS BCBS B [id number] P LH [id number] EXCELLUS BCBS B [id number] P LH [id number] [place] Claim Medigap Part B [id number] Family De pendent [id number] BS Of [facility] [place] [id number] Family Dependent [id number] Spo [id number] [place] Claim Medigap Part B [id number] Family De pendent [id number] BS Of [facility] Maintenance Organization [place] [place] [id number] Family Dependent [id number] [place] Claim Medigap Part B [id number] Family De pendent [id number] BS Of [facility] [place] [place] [id number] Family Dependent [id number] [place] Claim Medigap Part B [id number] Family De pendent [id number] BS Of [facility] ([facility] [place] [id number] Family Dependent [id number] BC INDEPENDENCE BLUE CROSS 362 [id number] [id number] BCBS [place] PPO 302/307 [id number] [id number] INDEPENDENT HEALTH [id number] HU2 [id number] [place] Claim Medigap Part B [id number] Family De pendent [id number] BS [facility] [id number] Family Dependent [id number] [place] Claim Medigap Part B [id number] Family De pendent [id number] BS Of [facility] [place] [id number] Family Dependent [id number] [place] Claim Medigap Part B [id number] Family De pendent [id number] BS Of [facility] [place] [id number] Family Dependent [id number] PI PI EXCELLUS BCBS PI PI EXCELLUS BCBS [id number] Spo OEC [id number] [place] Claim Medigap Part B [id number] Family De pendent [id number] BS Of [facility] Maintenance Organization (O) [id number] Family Dependent [id number] BCBS [place] PPO 302/307 [id number] BCBS [place] PPO 302/307 [id number] SP [id number] EXCELLUS BCBS B [id number] P OEC [id number] [place] (2018) Medigap Part B [id number] Family Dependen t [id number] [employer] BCBS Health Maintenance Organization (O) [id number] Family Dependent [id number] SELF PAY ONLY SP BCBS [place] PPO 302/307 [id number] HU2 [id number] [facility] HUMANA [id number] HU2 [id number] [facility] Region Claim Medigap Part B [id number] Family De pendent [id number] BS Of [facility] Health Maintenance Organization (O) [id number] Family Dependent [id number] PGBA [place] [id number] HU2 [id number] [facility] Region Claim Medigap Part B [id number] Family De pendent [id number] BS Of [facility] Health Maintenance Organization (O) [id number] Family Dependent [id number] [facility] Region Claim Commercial [id number] Family Depend ent [id number] [employer] Commercial [id number] Family Dependen t [id number] HEALTHNET/ AD O [id number] S [id number] [employer] Commercial [id number] Family Dependen t [id number] [employer] Commercial [id number] Family Dependen t [id number] [employer] Commercial [id number] Family Dependen t [id number] [employer] Commercial [id number] Family Dependen t [id number] PGBA [place] [id number] HU2 [id number] [employer] SV Commercial Family Dependen t PGBA [place] O [id number] P [id number] [facility] Region Commercial Family Dependen t SELF PAY UNAVAILABLE SP UNAVAILA BLE N REGIONAL CLAIMS KATY-O/P [id number] 01 [id number] Problems, Conditions, and Diagnoses Code Display Name Description Problem Type Effective Dates Data Source(s) 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 08/02/2020 12:00:00 AM EST eCW1 ([facility]) E55.9 Vitamin D deficiency Vitamin D deficiency Problem 08/02/2020 12:00:00 AM EST eCW1 ([facility]) G47.00 Insomnia Insomnia Problem 08/02/2020 12:00:00 AM ES T eCW1 ([facility]) I48.20 [id number] Chronic atrial fibrillation Problem 06/26/20 20 12:00:00 AM EST eCW1 ([facility]) G47.33 [id number] Obstructive sleep apnea (adult) (pediatri c) Problem 06/26/2020 12:00:00 AM EST eCW1 ([facility]) F41.9 23647511 Anxiety Problem 06/26/2020 12:00:00 AM ES T eCW1 ([facility]) G47.33 [id number] KEMI (obstructive sleep apnea) Problem 06/26/2020 12:00:00 AM EST eCW1 ([facility]) E66.9 745004226 Obesity (BMI 30-39.9) Problem 06/26/2020 12: 00:00 AM EST eCW1 ([facility]) E78.5 Hyperlipidemia Hyperlipidemia Problem 06/26/2020 12:00: 00 AM EST eCW1 ([facility]) [id number] Obesity Obesity Problem 12/04/2019 12:00:00 AM ED T [facility] ([facility] 22172422 Obstructive sleep apnea syndrome Obstructive sle ep apnea syndrome Problem 12/04/2019 12:00:00 AM EDT [facility] ([facility] 82653457 Cardiomyopathy Cardiomyopathy Problem 12/04/2019 12:00: 00 AM EDT [facility] ([facility] 06930146 Essential hypertension Essential hypertension Problem 12/04/2019 12:00:00 AM EDT [facility] ([facility] 04193625 Hyperlipidemia Hyperlipidemia Problem 12/04/2019 12:00: 00 AM EDT [facility] ([facility] Note: ASCVD 6.1% (10/2019) 4374550 Atrial flutter Atrial flutter Problem 12/04/2019 12:00: 00 AM EDT [facility] ([facility] 15170866 Sick sinus syndrome Sick sinus syndrome Problem 0 12/04/2019 12:00:00 AM EDT [facility] ([facility] E78.2 Mixed hyperlipidemia Mixed hyperlipidemia 05595479 11/30/2019 12:00:00 AM EDT [facility] I49.5 Sick sinus syndrome Sick sinus syndrome [id number] 0 09/07/2019 12:00:00 AM EST [facility] I48.92 Atrial flutter Atrial flutter [id number] 09/07/2019 12:00: 00 AM EST [facility] I49.5 Sick sinus syndrome Sick sinus syndrome Diagnosis 0 08/09/2020 12:43:38 PM EST [facility] G47.33 Obstructive sleep apnea (adult) (pediatr ic) Obstructive sleep apnea (adult) (pediatr Diagnosis 08/09/2020 12:43:38 PM EST [facility] E78.2 Mixed hyperlipidemia Mixed hyperlipidemia Diagnosis 08/09/2020 12:43:38 PM EST [facility] I42.9 Cardiomyopathy, unspecified Cardiomyopathy, unspecifie d Diagnosis 08/09/2020 12:43:38 PM EST [facility] I48.3 Typical atrial flutter Typical atrial flutter Diagnosi s 08/09/2020 12:43:38 PM EST [facility] I48.91 Unspecified atrial fibrillation Unspecified atri al fibrillation Diagnosis 08/09/2020 12:43:38 PM EST [facility] R07.9 Chest pain, unspecified Chest pain, unspecified Diagno sis 08/09/2020 12:43:38 PM EST [facility] Atrial fibrillation Atrial fibrillation Diagnosis 020 10:36:00 AM EDT [facility] Atrial fibrillation, unspecified type [I 48.91] Atrial fibrillation, unspecified type [I48.91] Diagnosis 04/01/2020 10:36:00 AM EDT [facility] Z68.38 Body mass index (BMI) 38.0-38.9, adult B umu mass index (bmi) 38.0-38.9, adult Diagnosis 01/09/2020 01:49:44 PM EDT [facility] E66.01 Morbid (severe) obesity due to excess ca lories Morbid (severe) obesity due to excess ca Diagnosis 01/09/2020 01:49:44 PM EDT [facility] I10 Essential (primary) hypertension Essential (primary) h ypertension Diagnosis 01/09/2020 01:49:44 PM EDT [facility] Z13.220 Encounter for screening for lipoid disor ders Encounter for screening for lipoid disor Diagnosis 11/09/2019 08:06:59 AM EDT [facility] I48.0 Paroxysmal atrial fibrillation Paroxysmal atrial fibri llation Diagnosis 09/20/2019 05:54:00 AM EST [facility] M47.817 Spondylosis without myelopathy or radicu lopathy, 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) Epidurography Radiological Supervision & Interpretation 07/15/2020 12:00:00 AM EST [facility] ([facility]) Moderate Sedation Services; Same Phys Intl 15 Mins; PT >= 5 Years 07/15/2020 12:00:00 AM EST [facility] ([facility]) Moderate Sedation Services; Same Phys Each Additional 15 Min s 07/15/2020 12:00:00 AM EST [facility] ([facility]) Immunization: Flublok Quadrivalent (18 years & older) 0.5mL IM (Influenza) 06/26/2020 12:00:00 AM EST eCW1 ([facility]) Injec Anesthetic Agent/Steroid Trans Epidural Lumb/Sacral Si ngle 05/20/2020 12:00:00 AM EST [facility] ([facility]) Epidurography Radiological Supervision & Interpretation 05/20/2020 12:00:00 AM EST [facility] ([facility]) Moderate Sedation Services; Same Phys Intl 15 Mins; PT >= 5 Years 05/20/2020 12:00:00 AM EST [facility] ([facility]) EP LAB PROCEDURE EP LAB PROCEDURE Routine 04/01/2020 12:11 PM EDT 04/01/2020 12:11:29 PM [facility] EP LAB PROCEDURE LOG EP LAB PROCEDURE LOG 04/01/2020 10:56 AM EDT 04/01/2020 10:56:10 AM [facility] Needle electromyography, each extremity, with related paraspinal areas, when performed, done with nerve conduction, amplitude and latency/velocity study; complete, five or more muscles studied, innervated by three or more nerves or four or more spinal levels (list separately in addition to the code for primary procedure). 10/23/2019 12:00:00 AM EDT MEDEN T ([facility]) Nerve Conduction 9-10 Studies 10/23/2019 12:00:00 AM E DT [facility] ([facility]) X-Ray Sacrum & Coccyx Two Views 10/09/2019 12:00:00 AM EDT [facility] ([facility]) EP STUDY EP STUDY Routine 09/20/2019 10:06 AM EST Paroxysmal atrial fibrillation 09/20/2019 03:06:06 PM EST Pa roxysmal atrial fibrillation [facility] Paroxysmal atrial fibrillation MRI SPINAL CANAL LUMBAR W/O CONTRAST MATERIAL MR LUMB AR SPINE WITHOUT CONTRAST [id number] Routine 08/25/2019 8:55 AM EST Spondylosis without myelopathy or radiculopathy, lumbosacral region 08/25/2019 01:55:29 PM EST Spondylosis without myelopathy or radicu lopathy, lumbosacral region [facility] Spondylosis without myelopathy or radicu lopathy, lumbosacral region CARDIAC DEVICE (IMPLANT) CHECK CARDIAC DEVICE (IMPLANT) CHECK R outine 08/25/2019 7:30 AM EST Spondylosis without myelopathy or radiculopathy, lumbosacral region 08/25/2019 12:30:00 PM EST Spondylosis without myelopathy or radicu lopathy, lumbosacral region [facility] Spondylosis without myelopathy or radicu lopathy, lumbosacral region Results ID Date Data Source [id number] 07/10/2020 10:00:00 AM EST [facility] ([facility]) Name Value Range Interpretation Code Description Data Belinda rce(s) Supporting Document(s) Coronavirus 2019 Nasopharygeal Laboratory test result [facility] ([facility]) This nucleic acid amplification test was developed and its performance characteristics determined by [facility]. Nucleic acid amplification tests include PCR and [...] detected) result in this assay. Performed at: [facility] [address] [place] [address], [place], [place] [address] [id number] Metal Gauge Maker: Praveena Fu PhD, Phone: [phone] Not Detected ID Date Data Source [id number] 07/10/2020 10:00:00 AM EST [facility] Name Value Range Interpretation Code Description Data Belinda rce(s) Supporting Document(s) SARS coronavirus 2 RNA [facility] This lab was ordered by [facility] and reported by [facility]. ID Date Data Source PLZ HAND COMPLETE 06/27/2020 12:00:00 AM EST eCW1 ([facility]) Name Value Range Interpretation Code Description Data Belinda rce(s) Supporting Document(s) eCW1 ([facility]) ID Date Data Source [id number] 06/27/2020 12:00:00 AM EST eCW1 ([facility]) Name Value Range Interpretation Code Description Data Belinda rce(s) Supporting Document(s) Hemoglobin A1c/Hemoglobin.total in Blood 5.3 eCW1 ([facility]) ID Date Data Source LIPID PANEL (CARDIAC RISK) 06/27/2020 12:00:00 AM EST eCW1 ( [facility]) Name Value Range Interpretation Code Description Data Belinda rce(s) Supporting Document(s) Triglyceride [Mass/volume] in Serum or Plasma by calculation 210 <150 eCW1 ([facility]) Cholesterol [Moles/volume] in Serum or Plasma 251 <200 eCW1 ([facility]) Cholesterol in HDL [Moles/volume] in Serum or Plasma 52 >40 eCW1 ([facility]) 199 eCW1 ([facility]) Cholesterol in LDL [Mass/volume] in Serum or Plasma by calculation 15 7 <100 eCW1 ([facility]) 4.826 <5 eCW1 ([facility]) ID Date Data Source PT & APTT 06/27/2020 12:00:00 AM EST eCW1 ([facility]) Name Value Range Interpretation Code Description Data Belinda rce(s) Supporting Document(s) 13.6 12.5-14.3 eCW1 ([facility]) 1.02 eCW1 ([facility]) 40.2 24.2-38.5 eCW1 ([facility]) ID Date Data Source FREE T4 & TSH PANEL 06/27/2020 12:00:00 AM EST eCW1 ([facility]) Name Value Range Interpretation Code Description Data Belinda rce(s) Supporting Document(s) 4.270 0.358-3.740 eCW1 ([facility]) 0.90 0.76-1.46 eCW1 ([facility]) ID Date Data Source Comprehensive Metabolic Profile (CMP) 06/27/2020 12:00:00 AM EST eCW1 ([facility]) Name Value Range Interpretation Code Description Data Belinda rce(s) Supporting Document(s) 82 70-100 eCW1 ([facility]) 1.03 0.55-1.30 eCW1 ([facility]) 137 136-145 eCW1 ([facility]) 21 7-18 eCW1 ([facility]) 58.8 >51 eCW1 ([facility]) 4.3 3.5-5.1 eCW1 ([facility]) 105 98-107 eCW1 ([facility]) 9.4 8.5-10.1 eCW1 ([facility]) 31 21-32 eCW1 ([facility]) 16 7-37 eCW1 ([facility]) 30 12-78 eCW1 ([facility]) 92 45-117 eCW1 ([facility]) 7.3 6.4-8.2 eCW1 ([facility]) 0.3 0.2-1.0 eCW1 ([facility]) 3.4 3.2-5.2 [facility]CW1 [facility]) 0.9 1.2-2.2 eCW1 ([facility]) ID Date Data Source CBC with Differential 06/27/2020 12:00:00 AM EST eCW1 ([facility]) Name Value Range Interpretation Code Description Data Belinda rce(s) Supporting Document(s) 4.65 4.00-5.40 eCW1 ([facility]) 6.1 4.0-10.0 eCW1 ([facility]) 12.9 12.0-15.5 eCW1 ([facility]) 92.5 80.0-96.0 eCW1 ([facility]) 43.0 36.0-47.0 eCW1 ([facility]) 27.7 27.0-33.0 eCW1 ([facility]) 30.0 32.0-36.5 eCW1 ([facility]) 13.9 11.5-14.5 eCW1 ([facility]) 56.4 36.0-66.0 eCW1 ([facility]) 306 150-450 eCW1 ([facility]) 31.4 24.0-44.0 eCW1 ([facility]) 1.8 0.0-3.0 eCW1 ([facility]) 9.0 0.0-5.0 eCW1 ([facility]) 1.1 0.0-1.0 eCW1 ([facility]) 1.9 1.5-5.0 eCW1 ([facility]) 3.4 1.5-8.5 eCW1 ([facility]) 0.6 0.0-0.8 eCW1 ([facility]) 0.1 0.0-0.5 eCW1 ([facility]) 0.1 0.0-0.2 eCW1 ([facility]) ID Date Data Source [id number] 05/16/2020 11:40:00 AM EDT [facility] ([facility]) Name Value Range Interpretation Code Description Data Belinda rce(s) Supporting Document(s) Coronavirus 2019 Nasopharygeal Laboratory test result [facility] ([facility]) This nucleic acid amplification test was developed and its performance characteristics determined by [facility]. Nucleic acid amplification tests include PCR and [...] detected) result in this assay. Performed at: [facility] [place] [id number] Metal Gauge Maker: Akosua Campbell MD, Phone: [phone] Not Detected ID Date Data Source [id number] 05/16/2020 11:40:00 AM EDT [facility] Name Value Range Interpretation Code Description Data Belinda rce(s) Supporting Document(s) SARS coronavirus 2 RNA [facility] This lab was ordered by [facility] and reported by [facility]. ID Date Data Source [id number] 05/16/2020 10:05:00 AM EDT [facility] ([facility]) Name Value Range Interpretation Code Description Data Belinda rce(s) Supporting Document(s) Prothrombin time (PT) Laboratory test result [facility] ([facility]) ID Date Data Source [id number] 05/16/2020 10:05:00 AM EDT [facility] ([facility]) Name Value Range Interpretation Code Description Data Belinda rce(s) Supporting Document(s) Prothrombin Time 13.2 s 12.5-14.3 [facility] ([facility]) Partial Thromboplastin Time 35.9 s 24.2-38.5 [facility] ([facility]) Inr 0.98 [facility] ([facility]) THERAPUTIC HUMAN INR VALUES INDICATIONS NORMAL RANGES PROPHYLAXIS/TREATMENT OF: VENOUS THROMBOSIS 2.0-3.0 PULMONARY EMBOLISM 2.0-3.0 PREVENTION OF SYSTEMIC EMBOLISM FROM: TISSUE HEART VALVES 2.0-3.0 ACUTE MYOCARDIAL INFARCTION 2.0-3.0 VALVULAR HEART DISEASE 2.0-3.0 ATRIAL FIBRILLATION 2.0-3.0 MECHANICAL VALVES(HIGH RISK) 2.5-3.5 RECURRENT MYOCARDIAL INFARCTION 2.5-3.5 ID Date Data Source [id number] 05/16/2020 10:05:00 AM EDT [facility] ([facility]) Name Value Range Interpretation Code Description Data Belinda rce(s) Supporting Document(s) Collagen Epinephrine 159 s 74-162 [facility] ([facility]) Results may be affected by platelet coun ts less than 150,000/mL or hematocrits less than 35%. If COL/EPI is NORMAL, COL/ADP is not performed. Result Interpretation: COL/EPI COL/ADP NORMAL NORMAL NORMAL ASA ABNORMAL NORMAL vWD ABNORMAL NORMAL GLANZMANN'S ABNORMAL ABNORMAL THROMBASTHENIA POSSIBLE DRUG ABNORMAL ABNORMAL EFFECT ID Date Data Source [id number] 05/16/2020 10:05:00 AM EDT [facility] ([facility] Name Value Range Interpretation Code Description Data Belinda rce(s) Supporting Document(s) Collagen Epinephrine 159 s 74-162 [facility] ([facility] Results may be affected by platelet coun ts less than 150,000/mL or hematocrits less than 35%. If COL/EPI is NORMAL, COL/ADP is not performed. Result Interpretation: COL/EPI COL/ADP NORMAL NORMAL NORMAL ASA ABNORMAL NORMAL vWD ABNORMAL NORMAL GLANZMANN'S ABNORMAL ABNORMAL THROMBASTHENIA POSSIBLE DRUG ABNORMAL ABNORMAL EFFECT ID Date Data Source [id number] 05/16/2020 10:05:00 AM EDT [facility] ([facility] Name Value Range Interpretation Code Description Data Belinda rce(s) Supporting Document(s) aPTT in Platelet poor plasma by Coagulation assay 35.9 s 24.2-38. 5 [facility] ([facility] ID Date Data Source [id number] 05/16/2020 10:05:00 AM EDT [facility] ([facility] Name Value Range Interpretation Code Description Data Belinda rce(s) Supporting Document(s) Prothrombin Time 13.2 s 12.5-14.3 [facility] ([facility] Inr 0.98 [facility] ([facility] THERAPUTIC HUMAN INR VALUES INDICATIONS NORMAL RANGES PROPHYLAXIS/TREATMENT OF: VENOUS THROMBOSIS 2.0-3.0 PULMONARY EMBOLISM 2.0-3.0 PREVENTION OF SYSTEMIC EMBOLISM FROM: TISSUE HEART VALVES 2.0-3.0 ACUTE MYOCARDIAL INFARCTION 2.0-3.0 VALVULAR HEART DISEASE 2.0-3.0 ATRIAL FIBRILLATION 2.0-3.0 MECHANICAL VALVES(HIGH RISK) 2.5-3.5 RECURRENT MYOCARDIAL INFARCTION 2.5-3.5 ID Date Data Source [id number] 04/01/2020 12:11:[address] [facility] Name Value Range Interpretation Code Description Data Belinda rce(s) Supporting Document(s) History and Physical [facility] [id number]/[id number] lbm [file] kT+Quality Assurance Advisor+L/jnwpY14eQqYhx+RCDU74sGgei4Jbkj0Yu9cmxObqBWsnXgkkS30yCKHWMXdx6SlJD2Oj5Skv [file] [id number]Kt= ID Date Data Source [id number] 03/29/2020 10:58:[address] [facility] Name Value Range Interpretation Code Description Data Belinda rce(s) Supporting Document(s) Progress Note [facility] [id number]/DJXgtYYMna4GhZUwdBQk4ZRnySWOzJ7HsIAT5nH3yNWE8FQeZBkXpEdTlWQVf lbm [file] adEiU4CVAeIhT+JK0cESo+Po9Kc6GxqmS8tjBjRWi3ABq7ZImsJGEEWo4L ID Date Data Source [id number] 03/27/2020 12:00:00 AM EDT [facility] Name Value Range Interpretation Code Description Data Belinda rce(s) Supporting Document(s) SARS coronavirus 2 RNA [Presence] in Res piratory specimen by KRISTIAN with probe detection [facility] This lab was ordered by Carroll Gtz and reported by [employer]. ID Date Data Source [id number] 03/20/2020 09:24:00 AM EDT [facility] Name Value Range Interpretation Code Description Data Belinda rce(s) Supporting Document(s) Blood Urea Nitrogen 12 mg/dL 7-18 [facility] ([facility] Glucose, Fasting 67 mg/dL 70-100 [facility] Creatinine For GFR 0.93 mg/dL 0.55-1.30 [facility] Sodium Level 139 meq/L 136-145 [facility] Glomerular Filtration Rate Laboratory test result [facility] <content>Units are mL/min/1.73 m2</content>
<content></content>
<content>Chronic Kidney Disease Staging per [facility]:</content>
<content></content>
<content>Stage I & II GFR >=60 Normal to Mildly Decreased</content>
<content>Stage III GFR 30- 59 Moderately Decreased</content>
<content>Stage IV GFR 15-29 Severely Decreased</content>
<content>Stage V GFR <15 Very Little GFR Left</content>
<content>ESRD GFR <15 on DENTAL APPLIANCE REPAIRER</content>
<content></content> Potassium Serum 4.1 meq/L 3.5-5.1 [facility] Chloride Level 104 meq/L 98-107 [facility] Carbon Dioxide Level 28 meq/L 21-32 [facility] ([facility] Calcium Level 8.4 mg/dL 8.5-10.1 [facility] Anion Gap 7 meq/L 8-16 [facility] ID Date Data Source [id number] 03/20/2020 09:24:00 AM EDT [facility] Name Value Range Interpretation Code Description Data Belinda rce(s) Supporting Document(s) Red Blood Count 4.34 10 4.00-5.40 [facility] White Blood Count 7.4 10 4.0-10.0 [facility] Hemoglobin 11.9 g/dL 12.0-15.5 [facility] Mean Corpuscular Hemoglobin 27.4 pg 27.0-33.0 [facility] Hematocrit 39.7 % 36.0-47.0 [facility] Mean Corpuscular HGB Conc 30.0 g/dL 32.0-36.5 [facility] Mean Corpuscular Volume 91.5 fl 80.0-96.0 M [facility] Platelet Count, Automated 277 10 150-450 [facility] Red Cell Distribution Width 14.0 % 11.5-14.5 [facility] Nucleated Red Blood Cell % 0.0 % 0-0 [facility] ID Date Data Source [id number] 03/15/2020 07:44:00 PM EDT [facility] Name Value Range Interpretation Code Description Data Belinda rce(s) Supporting Document(s) Troponin I.cardiac [Mass/volume] in Serum or Plasma 0.00 ng/mL 0.00-0 .08 [facility] ID Date Data Source [id number] 02/13/2020 06:44:38 PM EDT [facility] Name Value Range Interpretation Code Description Data Belinda rce(s) Supporting Document(s) &PDF [facility] NKDLRf4qMcQJKxVl40/ZHCigPLJkv0QfZLcmRQk1FYjgWXGcW8IdoYufAERAGSKSG5TnAUkBTaIpNBMd yKE [file] ICAgICAgICAgICAgICAgICAgICAgICAgICAgICAgICAgICAgICAgICAgICAgICAgICAgICAgICAgICAg TBYcKXPiCYOlWRImWTBeWDOnKD6OYFCrSUIsFRKcEGOrWHVkQOZdPNBaSIUzSBGoYMFkLJIsEFBdTYFi ICAgICAgICAgICAgICAgICAgICAgICAgICAgICAgIC ZoYBRoBZQjBIGeYPAaSVQwMEHvDRSiDIXtTRUmJM4EANSnXDUoEDOlFYZsNHPbWSToKUFdCJFjUXIzAZ AgICAgICAgICAgICAgICAgICAgICAgICAgICAgICAgICAgICAgICAgICAgICAgICAgICAgICAgICAgIC ZkRGKhCTEoEHPfKA7BKIUzUEBhFRApUNHoCXBgIVTo ICAgICAgICAgICAgICAgICAgICAgICAgICAgICAgICAgICAgICAgICAgICAgICAgICAgICAgICAgICAg SLAzAPJwYZCvYJRdGMYfFKBqDAQdGD6CNCBuHDKoLZVwROKgCWNpULMqZZIaHUYbCGUwFLNkVQOiBRNm ICAgICAgICAgICAgICAgICAgICAgICAgICAgICAgIC GeUNPtZHQkAXLpSIAtJLXjSUKeOOGiRUZyCXIrQJFdVS4RCKBoFWHgUUHfDNZcKIWtGIGnTVOkZJCaKJ AgICAgICAgICAgICAgICAgICAgICAgICAgICAgICAgICAgICAgICAgICAgICAgICAgICAgICAgICAgIC UwCZInWDHqWFEwVNWiBX2CXNJoVTVlSJSaOABpZNDi ICAgICAgICAgICAgICAgICAgICAgICAgICAgICAgICAgICAgICAgICAgICAgICAgICAgICAgICAgICAg GKSiDYUxDWWqHBZzFFDaCTVzOZVbNMLqHV3JGXSxTIEcVIVjDOEkEBMmTAItKEVwABRmAWLiUFReVXWl ICAgICAgICAgICAgICAgICAgICAgICAgICAgICAgIC VpUTFlJNUtIXGdMUYmSGGxHJQfCOGfOSSgRPTkVWOaHUTgDC2LQBWbOSXtVVEfGVYqGCIqFBRcDBCkCJ AgICAgICAgICAgICAgICAgICAgICAgICAgICAgICAgICAgICAgICAgICAgICAgICAgICAgICAgICAgIC MfUFYtJQKlYYZjDDDbGITrBU5EYYAvAKLfUDAiUKZv ICAgICAgICAgICAgICAgICAgICAgICAgICAgICAgICAgICAgICAgICAgICAgICAgICAgICAgICAgICAg ZYMtCCHbVUWpSEScIBRyJZYlNCFcXQEeGLJyLD8ZXM74qLWiv8W0QMGgPG6fpxj/Ug7EZZnjiiYrfPCa MX8FOyMdJT2ryk1BCaTpWF9eyh8ZADuZXdPmE8B8yW DyEDHyITCJYvOoP47vTVycXa27RMevUVWwUtTnTRv6Ha1MCsJuY1wjKLBdIcC2EBKoLmA0OIPgClZmNM acIQ9Ry5DzrZGcHUd+Mn3RAK4uv1KcSMkgXNRsVB8keb6LEAxFBzFpM4S2oUVoU7L5ZKxnTk4JEKAfOA ZwXOvaBOIXBFcjUB3JCC0rbpB1NJ6PhCOyMKTpXLEl jHBrWJu9L40qiMNdRHzwHP0PJHB+Nelson+Rd0BYFQkXGPiDERzZrVtXOZUEkPhZ99fhEBeBBTeGTFlYSCo Hu7ESLIdF3SmffBryLlbeiSjFXHrEGTWUB3HYJstmlMwsPGebInmKR65vVssHV6JJd9OYnPpBF1eao7F mEFvMv0PMWEhKm0MCYFiIVCqBDGsCQU5YKHqToFwBA kpZXSkBNIyXCQ7PVMoLLHdUX0LQiZfMHRsCLa4ULhwQTTvUXHepv4AKYLxOFYjGWjzNuSaXFFdYBDvAR gjTMQuKLTyLEumTHDaMZQnDI1ULlWbNOTzFCM8GDHhXZDsAQRcfa2LJCPnFPVwEvjiWDRhXGIxQTHpOS uvIMPgWMS7WZHkCDRcLKJoQX4FSaSsHDAkWCDpVyKn URTpQRMpwy6YBOCsXGJgInR4JFPfJDIjILIoJFxnQVAoVIA9YwqxWZFmYFPkEK9FQzEmBEXhRKv9EiSm BBVoEJGkku1MMLLrPHVjRKSvAIYnUVAjTCZcIApsIQVpCLS3NrOfCPAaDSSpQE3HMjGgUBKbNIz5RXBc VUWuRDRaqb8MNKVyAWRjAKe0SEIaAUZwYZWtCXkrSA FtPQNgXKyvRVZgUGGoUX1VBsZoGQKjCJJsXVOyERXnOXYybb7KZCQcFFNdOEn8TvYyEDHsIRFdKLixFW AmYYI1VPB3GXSnZKTgTH8TKpExEIBdOVglAZXdDXVwJDGygd8WKNZlIQEdXZt2SEWlGEIzLZLnEDa9bm CyaPDeEVv2NF2XD0IaniQoZgXQHv6Un864MYRvPXFv Zt8OY7vaZc7xPLWgQEMDMm8DMPz8OWXeSzJsIqBvMyBoGKUiYAC8HHt7QqScZVucNnNvBZi+IDwwNjAy EjA0YfE0WkOiEMOkWuZvNQKaHaGgWIK5LJPiNX6nYNOSGp2+NTedeIYecQanVFLBYvFaWPL0EStwDKOF Rg0K ID Date Data Source [id number] 02/02/2020 01:07:00 PM EDT [facility] DATE OF EXAM: 02/02/2020MRI PELVIS: CLIN ICAL HISTORY: Evaluate for sacral plexus lesion PROTOCOL: The pelvis was examined in 3 planes using multiple pulse sequences. FINDINGS: There is no abnormal hypointense T1/hyperintense T2 marrow signal within the osseous structures making up the either hemipelvis in addition to the sacrum along with the proximal femurs. There are no findings of avascular necrosis of either femoral head. There is no significant fluid within the sacroiliac or hip joints. The sacral foramina are symmetrical in appearance with no obvious foraminal mass. There is normal alignment of the segments of the sacrum and coccyx. Sagittal images of the inferior aspect of the lumbar spine demonstrates no obvious posterior disc protrusion or bulge. There are degenerative changes involving the posterior facet joints at the L4-5 and L5-S1 levels. The visualized portions of the lumbosacral trunk along the ventral surface of each ala of sacrum extending inferiorly along the pelvic alexis ewall to the level of the greater sciatic foramen do not appear to be encroached upon by a mass. No iliac or inguinal adenopathy is identified. The musculature within each hemipelvis are symmetrical in appearance in particular the piriformis muscles. There is no abnormal hyperintense T2 intraparenchymal signal within the muscles to imply the presence of edema from a strain or denervation. The uterus is absent. There is an elongated ovoid shaped well- circumscribed mass within the right side of the vaginal canal which has hyperintense T1/T2 signal. This lesion measures 3.7 x 1.3 x 1.4 cm. This likely represents a complex Bartholin's gland cyst. There are linear areas of hyperintense T2 signal within the origins of each common hamstring tendon at the level of the ischial tuberosities. These possibly represent small intrasubstance tears. IMPRESSION:.1. There are no definite findings of a mass or encroachment of the lumbosacral plexus within the pelvis.2. There is a mass within the vaginal canal which likely represents a complex Bartholin's gland cyst.3. Additional findings as described above. Professional interpretation performed at [facility] .End of diagnostic report for accession: [id number] Interpreted: Marck Duggan MDTranscribed: 02/02/2020 12:37 PMSigned: 02/02/2020 01:07 PM Marck Duggan MD [facility] ACC # [id number] BILL # [id number] [facility] Name Value Range Interpretation Code Description Data Belinda rce(s) Supporting Document(s) ID Date Data Source [id number] 02/02/2020 10:52:00 AM EDT [facility] DATE OF EXAM: 02/02/2020Chest 2V INDICAT ION: Presence of cardiac pacemaker/ Other spondylosis, lumbar region/ concern for plexus lesion COMPARISON: None TECHNIQUE: PA and lateral views of the chest were obtained. FINDINGS: No lobar consolidation bilaterally. Focal linear scarring noted in the left upper lobe lingular segment.There is no pneumothorax bilaterally.Mild enlargement of the cardiac silhouette. Dual lead pacemaker noted on the left. Both leads appear intact.The mediastinal contours appear within normal limits.Costophrenic angles are sharp bilaterally.No discrete osseous abnormality. IMPRESSION: No radiographic evidence of acute pulmonary disease. Lingular scarring. Professional interpretation performed at [facility] .End of diagnostic report for accession: [id number] Interpreted: Nir Coffey MDTranscribed: 02/02/2020 10:52 AMSigned: 02/02/2020 10:52 AM Nir Coffey MD -------- [facility] ACC # [id number] BILL # [id number] [facility] Name Value Range Interpretation Code Description Data Belinda rce(s) Supporting Document(s) ID Date Data Source [id number] 09/20/2019 10:32:05 AM EST [facility] Name Value Range Interpretation Code Description Data Belinda rce(s) Supporting Document(s) &PDF [facility] YQNRNa2hVmWGBnOb01/ZNLjzBRVua1XyBOqaWIc8SFfgVPKmA1CywAbyFBUARBRRA8UvORsEKoCoVLTm oRX VjDkLUqOG8GV0zGZVlzgGyrxT7kY7wBZ9WVMF+Ul3UBP4mb2AdQXo4XYWzx1MnZWyfZDj5M5JupJYygo VqJtkvjWANUYOpXXNpO9veybn6oJCvOdU7Kj9LJoPhg5EwKAQuRSzEql6sO01gVoT+L7D/gcC+pIBjcT z2vOsiG3MhBz2tQe3jlUgeIjXCD7ic5BLJ++t3rpLO 4neEuAQ6Fkxyl3QV7vidWKXQrb/1mzj5EYukWO+2H/1QicFM/OMbsZtmq+612Ou1eh+h84mlvg2HULbf iUjQ7lJHLfEfF1DPef+OjYSQ4UPWlDyf+pYH83W8ljs+Qemn6XTyovrGeKWHJXotsT+LzFn8VCvy7HRo nCDBn+jJLAHfdkoKTqLdGhQueqJxJUViIdEbJaaSYS [file] IEKelWUdDPu0N08hqZGxUZjkMF4FEHK+Nelson+Mn4AQRYyGCOsXZSsCuHzFJGEEsGxI4VuW2EOk1EtJ7Pz SW65kTyrrkAtUNrxMX1PID9kQLBxMHXGCG0GuYGnsF2kgtVhISOmKWYPBlZhD69qsLYuQSYoJDN1XRVm Bf4XZPUxH7EvseAksNvsptCiURFlWFIVQZ5KAAnwdu ZciYSzeFrvNT07mVzhJJ9XSy3IPuDjUY1rbn6IwZCwEh9MRCYvDW4HVRQrIOMvCWNmJSW4QTRrDfVyJT vcQEUmBQLzALQ8RPHlTHPtQI0QSoWyRGFpBQtcNxCePVNaIOVwth9ZTGAoJHOcATB6DoCoHPUwDOHoVP lzFGShCWZiYWvsHNRePEOkGS3UShMrPCLsEBNqQdaf WHTmUAGkhy3CGBLlFAXiUWV6AoPbVSAbBOXyVZxrPWUiLKOwNZF4NLYaRQHfEI8XJuAbKUIjMvX5CRCt LEDwFNTqmz3BNEQwDGOiRLa8QdWdEXGwUNArZFtmDUIiESCqCNX2HBOvOMKyIL9GZoVfTWOaCjZtXdIi WUJzONNtez0MTHKdWYWoKbBhPUUrQBGpYKQtHUioLG JoMNEwASi4VLHeFLZpFW3YEjFcLNKbKkT6NTRsKCRdBGIldt5VJZRkRVTqTecbCvIfCKUlGDDbABjfBC PjEEMvHsmiGFFqLUQvUS0HGkZdRUYnZAWpNMQnMGCnWJLtbk4EVQPpEGMyEQR7YxEbOKGdWDRrGIjwPL SxGME4GDc2SCHhEUGiMZ1BJgFdVGUaFFi3EHNsBDJg WRFwvi3NXWFsKRSlFGS1CTMyADLzYGKyIHtfRFLsSLE0RsJ7WTFhFAPyIM0XMuBxIAXyBZY1HLVsBZCm GMTqfz7DHUAuZCZwBFnjWVCwNEArHNGnBHqhLLYzTMHvGFf0MNCnXBWhIM5OZvYjRVEtWQN7CIRaYBTj TGTglv1MWBRhRNFzZsH6KmLtYAKzEBHkXJqdFVApFE EtIkE1INWjAPCoYH8IJgDkPZWyUHAgFLOrTCYwVSJvaw7EXZTeDKQpGqQ7JDJoYANiOEErXYlaNNGjSH HdKaj6VMPaAWYeWO4WTcXtEXEuPHe1KBEyOJDeAZRjjm5GFABiZAEcUUVzUAJfLWEjSEMwMWkoXOSkYN V6FrMxUZBpWJNgZH1HXrTsAXNzYzKbGGChMYSbWIQl xl9YPFYaGZNwCQJ1OuAuGHIkVLMkFXbhNIOtAUHsZJE3VCWgJWZdYR7MPbLsSPahTHRFErm3YNsjX4q8 ZLQsZQ0NP6Dgj5CqJlgaFHCIANrgQX3jknFeLFTgWs6XE6rXStirRvGgYhE8IzRhIkasHHIdNlSmXADh WJLqJUAwDcJ3Ov1rNJYfCBBxRNi1XMCmJMRtCeJsB5 FgANXzYAQsHIPwSpfxYgWhES3AKg2QYeZ2XWZ6tZYpWj1YRzUlZOeTChPuUI4DUKu= ID Date Data Source [id number] 09/11/2019 08:37:00 AM EST [facility] Name Value Range Interpretation Code Description Data Belinda rce(s) Supporting Document(s) Glucose, Fasting 78 mg/dL 70-100 [facility] Creatinine For GFR 1.05 mg/dL 0.55-1.30 [facility] Blood Urea Nitrogen 23 mg/dL 7-18 [facility] Potassium Serum 4.1 meq/L 3.5-5.1 [facility] Sodium Level 141 meq/L 136-145 [facility] Glomerular Filtration Rate 57.5 [facility] <content>Units are mL/min/1.73 m2</content>
<content></content>
<content>Chronic Kidney Disease Staging per NKF:</content>
<content></content>
<content>Stage I & II GFR >=60 Normal to Mildly Decreased</content>
<content>Stage III GFR 30- 59 Moderately Decreased</content>
<content>Stage IV GFR 15-29 Severely Decreased</content>
<content>Stage V GFR <15 Very Little GFR Left</content>
<content>ESRD GFR <15 on DENTAL APPLIANCE REPAIRER</content>
<content></content> Carbon Dioxide Level 29 meq/L 21-32 [facility] Anion Gap 5 meq/L 8-16 [facility] Chloride Level 107 meq/L 98-107 [facility] Calcium Level 9.0 mg/dL 8.5-10.1 [facility] ID Date Data Source [id number] 09/11/2019 08:37:00 AM EST [facility] Name Value Range Interpretation Code Description Data Belinda rce(s) Supporting Document(s) White Blood Count 6.7 10 4.0-10.0 [facility] ([facility] Red Blood Count 4.06 10 4.00-5.40 [facility] Mean Corpuscular Volume 90.9 fl 80.0-96.0 M [facility] ([facility] Hematocrit 36.9 % 36.0-47.0 [facility] Hemoglobin 11.7 g/dL 12.0-15.5 [facility] Mean Corpuscular Hemoglobin 28.8 pg 27.0-33.0 [facility] Mean Corpuscular HGB Conc 31.7 g/dL 32.0-36.5 [facility] Red Cell Distribution Width 13.2 % 11.5-14.5 [facility] Platelet Count, Automated 252 10 150-450 [facility] Nucleated Red Blood Cell % 0.0 % 0-0 [facility] ID Date Data Source [id number] 09/09/2019 05:15:23 PM EST [facility] Name Value Range Interpretation Code Description Data Belinda rce(s) Supporting Document(s) &PDF [facility] YHTPCr0eHoRNVvWs38/MDFmrEBYkz4FmGMgjZCk5ZIdpHYQyO1NvlLoiHZRZAHFNU4RyZNzQIpOhSILu yKE OexUEgN6voxCDccsIAe3Dcy4FlhGdfzlqZQxRbRr8OZrUkJP9vtr9ZJEKfJT9ajq0TNQP2TM1JgHx3JO OaD2ZuRQTfINWow4EtDB6TGS4hdMhiRhZ4YV4+XJzfYKK6qmHzxF1SDEXzES9q1VAI/n7A/QcChwMSIL UURbVodrdXojEGJbPrviBf38EmxcfX4aH1W9p5g/1p PFhDD2OpbPMq39FEVFY5VUdSeLYcPKsLRaU4+cc1OPGvdPa3Py+sQedaX2Yz/qU6xnW3Ojx7hC3b/l7x qofEJhNZJMWBUdlq/YIzdKvJ4Pn3pFy0vKI8/KtfI/VH/odZlOqE/VePePGaTYyihBlW6hfTTxfAzxkD J3VArMNYKoDU/8OhERYSNM9J5en9rvY7rIOE52TmZy mg7NYtEDSz9I2WkRfoZN8GD51kwthWJpEPyQhyiEj3szzEubbaawRD34xADe56XbzzIPFayc0zXfEYAV eOu1fdEP4xnv4lK/vUstM1Qqd76H3nmkH4DPVfikKj55bmnF3YwsZdO6PODfOap0cszfwnbWo4HjmI6/ l0IOtFo9grGfI8hd3TazWjiAy+y2eF+P8ymDfsWfOV 9urlsMrGzrKNsufFb+N2lUmgAe0B40yJiAKyM1oCnq9cd/gfBAiiAXeJRhUYMWEqFsB1GyeulRNyhcsY flFdpbviRc5Wa5/UwtXtO07AQJsm7Vk7oKa0aY4zSRYesP1b93dJ9epzVQukcZ4c36oC3pkuRsJfo77r hMXmfoFzFyDb/zmxd1rehxeycURIUZzwNkuG0YexDv 3x/7B9KWF0SNDBTGQkpNqxn1Wj9PNaucnfFUXZjYTS6l/Andrae/EVxnXVdCmO7jgcgQk9HqBfhffCck8W [file] == ID Date Data Source [id number] 08/25/2019 05:03:[address] [facility] MR LUMBAR SPINE WITHOUT CONTRAST [id number] NAL RESULTInterpreted by:Ariel Strickland MD08/25/2019 8:19 AM MR LUMBAR SPINE WITHOUT CONTRAST [id number] CLINICAL INFORMATION: R/O:HNP, STENOSIS H:65" W:236 PATIENT HAS HAD AN ABRASION ON 03/22/19 AND A PACE MAKER PUT IN ON , PACEMAKER IS MR CONDITIONAL (1.5T) ANSWERED NO TO ALL OTHER QUESTIONS ADDITIONAL CLINICAL INFORMATION: None.TECHNIQUE: Multiplanar multi-sequential imaging of the lumbosacral spine was performed without intravenous contrast.COMPARISON: None.FINDINGS: For the purpose of this report, the lowest complete disk space is L5/S1. VERTEBRAE: Lumbar lordosis is present. The vertebrae are normal in alignment. The vertebral bodies are normal in height. Age-appropriate fatty marrow changes are observed.CONUS MEDULLARIS: The conus medullaris is normal in morphology and terminates at T12-L1.POST-SURGICAL CHANGES: None.INDIVIDUAL LEVELS:T12-L1: No disc herniation, spinal stenosis or foraminal narrowing.L1-L2: No disc herniati on, spinal stenosis or foraminal narrowing.L2-L3: No disc herniation, spinal stenosis or foraminal narrowing.L3-L4: Mild facet hypertrophy is noted. No disc herniation, spinal stenosis or foraminal narrowing.L4-5: Wvbo-si-evgrzgge facet hypertrophy is noted. No disc herniation, spinal stenosis or foraminal narrowing.L5-S1: No disc herniation, spinal stenosis or foraminal narrowing.OTHER: NoneIMPRESSION:Cylp-wt-gmoqfwpk grade facet hypertrophy at the L3-4 and L4-5 levels.This document has been electronically signed by Ariel Strickland MD on 08/25/2019 5:00 PM Name Value Range Interpretation Code Description Data Belinda rce(s) Supporting Document(s) Procedure Social History Code Duration Value Status Description Data Source(s ) Alcohol intake 08/11/2020 12:00:00 AM EST Yes completed [facility] Smoking 08/11/2020 12:00:00 AM EST Never smoker completed Never [facility] Smoking 08/02/2020 12:00:00 AM EST Never Smoker completed Never [facility] eCW1 ([facility]) Smoking 08/02/2020 12:00:00 AM EST Never Smoker completed Never [facility] eCW1 ([facility]) Smoking 06/26/2020 12:00:00 AM EST Never Smoker completed Never [facility] eCW1 ([facility]) Smoking 06/26/2020 12:00:00 AM EST Never Smoker completed Never [facility] eCW1 ([facility]) Alcohol intake 04/01/2020 12:00:00 AM EDT Ex-drinker (finding) comp leted Ex- drinker (finding) [facility] Tobacco use and exposure 04/01/2020 12:00:00 AM EDT Never used co mpleted Never used [facility] Smoking 04/01/2020 12:00:00 AM EDT Never smoker completed Never [facility] Smoking 12/21/2019 12:00:00 AM EDT Patient has never smoked co mpleted Patient has never smoked [facility] ([facility]) Alcohol intake 09/20/2019 12:00:00 AM EST Yes completed [facility] Smoking 09/20/2019 12:00:00 AM EST Never smoker completed Never [facility] Vital Signs ID Date Data Source UNK Name Value Range Interpretation Code Description Data Source(s) Oxygen saturation in Arterial blood by Pulse oximetry 98 % 98 % [facility] Body mass index (BMI) [Ratio] 39.94 kg/m2 39.94 kg/m2 [facility] Body weight 108.863 kg 108.863 kg [facility] Body height 165.1 cm 165.1 cm [facility] Heart rate 79 /min 79 /min [facility] Diastolic blood pressure 79 mm[Hg] 79 mm[Hg] [facility] Systolic blood pressure 128 mm[Hg] 128 mm[Hg] [facility] Diastolic blood pressure 74 mm[Hg] 74 mm[Hg] eCW1 ([facility]) Systolic blood pressure 118 mm[Hg] 118 mm[Hg] e CW1 ([facility]) Body temperature 98.3 [degF] 98.3 [degF] eCW1 ( [facility]) Respiratory rate 16 /min 16 /min eCW1 ([facility]) Heart rate 88 /min 88 /min eCW1 ([facility]) Body mass index (BMI) [Ratio] 38.60 kg/m2 38.60 kg/m2 eCW1 ([facility]) Body height 65 [in_i] 65 [in_i] eCW1 ([facility]) Body weight 232 [lb_av] 232 [lb_av] eCW1 ([facility]) Diastolic blood pressure 86 mm[Hg] 86 mm[Hg] eCW1 ([facility]) Systolic blood pressure 126 mm[Hg] 126 mm[Hg] e CW1 ([facility]) Body temperature 97.7 [degF] 97.7 [degF] eCW1 ( [facility]) Respiratory rate 18 /min 18 /min eCW1 ([facility]) Heart rate 91 /min 91 /min eCW1 ([facility]) Body mass index (BMI) [Ratio] 38.77 kg/m2 38.77 kg/m2 eCW1 ([facility]) Body height 65 [in_i] 65 [in_i] eCW1 ([facility]) Body weight 233 [lb_av] 233 [lb_av] eCW1 ([facility]) Body mass index (BMI) [Ratio] 39.3 kg/m2 39.3 k g/m2 MEDENT ([facility]) Body weight 236.00 [lb_av] 236.00 [lb_av] MEDEN T ([facility]) Body height 65 [in_i] 65 [in_i] MEDENT ([facility]) 5'5" Body temperature 96.8 [degF] 96.8 [degF] [facility] ([facility]) Body weight 112.946 kg 112.946 kg [facility] ([facility]) Body mass index (BMI) [Ratio] 41.4 kg/m2 41.4 k g/m2 [facility] ([facility]) Body weight 249.00 [lb_av] 249.00 [lb_av] MEDEN T ([facility]) Body height 65 [in_i] 65 [in_i] [facility] 5'5" Body temperature 96.9 [degF] 96.9 [degF] [facility] ([facility]) Oxygen saturation in Arterial blood by Pulse oximetry 98 % 98 % [facility] ([facility]) Heart rate 83 /min 83 /min [facility] ([facility]) Diastolic blood pressure 82 mm[Hg] 82 mm[Hg] [facility] ([facility]) Systolic blood pressure 122 mm[Hg] 122 mm[Hg] M EDENT ([facility]) Body height 65 [in_i] 65 [in_i] [facility] ([facility]) 5'5" Oxygen saturation in Arterial blood by Pulse oximetry 99 % 99 % [facility] Respiratory rate 18 /min 18 /min [facility] Body temperature 36.44 Christie 36.44 Christie [facility] Heart rate 97 /min 97 /min [facility] Diastolic blood pressure 75 mm[Hg] 75 mm[Hg] [facility] Systolic blood pressure 105 mm[Hg] 105 mm[Hg] [facility] Body mass index (BMI) [Ratio] 38.92 kg/m2 38.92 kg/m2 [facility] Body weight 106.1 kg 106.1 kg [facility] Body height 165.1 cm 165.1 cm [facility] ID Date Data Source [id number] 04/01/2020 11:01:[address] [facility] Name Value Range Interpretation Code Description Data Source(s) WEIGHT RECORDED 235 lb 235 lb [facility] Body height Measured 65 in 65 in [facility] Patient Treatment Plan of Care Planned Activity Planned Date Details Description Data Source (s) Dexamethasone 2 MG Oral Tablet 07/03/2020 12:00:00 AM EST eCW1 ([facility]) atorvastatin 20 MG Oral Tablet 06/28/2020 12:00:00 AM EST eCW1 ([facility]) atorvastatin 20 MG Oral Tablet 06/28/2020 12:00:00 AM EST eCW1 ([facility]) apixaban 5 MG Oral Tablet 03/12/2020 12:00:00 AM EDT [facility] 24 HR metoprolol succinate 200 MG Extended Release Ora l Tablet 10/03/2019 12:00:00 AM EDT [facility] Amiodarone hydrochloride 200 MG Oral Tablet 10/03/2019 12:00:00 AM EDT [facility] Furosemide 20 MG Oral Tablet 05/05/2019 12:00:00 AM EDT [facility] 24 HR metoprolol succinate 200 MG Extended Release Ora l Tablet 05/03/2019 12:00:00 AM EDT [facility] gabapentin 300 MG Oral Capsule [facility] Digoxin 0.125 MG Oral Tablet [facility] Digoxin 0.125 MG Oral Tablet [facility] 24 HR metoprolol succinate 200 MG Extended Release Oral Tablet [facility]
[2020-09-04] MEDS ORDERED: ATOR1TAB21 (12:36)
[2020-09-04] MEDS ORDERED: GI COCKTAIL 50ML BTL(HYOSCYAMINE/MAALOX/LIDOCAINE VISCOUS)(1:3:1) PO ONE (13:15)
[2020-09-04 13:44] LABS: BASO % 0.4 % (0.0-1.0); EOS # 0.1 10^3/uL (0.0-0.5); EOS % 0.6 % (0.0-3.0); HEMATOCRIT 38.8 % (36.0-47.0); HEMOGLOBIN 12.5 g/dl (12.0-15.5); LYMPH # 1.3 10^3/uL (1.5-5.0); LYMPH % 14.2 % (24.0-44.0); MEAN CORPUSCULAR HEMOGLOBIN 28.3 pg (27.0-33.0); MEAN CORPUSCULAR HGB CONC 32.2 g/dl (32.0-36.5); MONO # 0.5 10^3/uL (0.0-0.8); MONO % 5.3 % (2.0-8.0); NEUTROPHILS # 7.4 10^3/uL (1.5-8.5); NEUTROPHILS % 79.3 % (36.0-66.0); PLATELET COUNT, AUTOMATED 288 10^3/uL (150-450); RED BLOOD COUNT 4.41 10^6/uL (4.00-5.40); WHITE BLOOD COUNT 9.3 10^3/uL (4.0-10.0)
[2020-09-04 13:54] LABS: INR 1.51; PROTHROMBIN TIME 18.5 SECONDS (12.5-14.3)
[2020-09-04 13:55] LABS: PARTIAL THROMBOPLASTIN TIME 34.5 SECONDS (24.2-38.5)
[2020-09-04 13:57] LABS: D-DIMER QUANT 326.05 ng/ml (<500)
[2020-09-04 14:09] LABS: ERYTHROCYTE SEDIMENTATION RATE 53 mm/hr (0-30)
--- OUTSIDE RECORDS SUMMARY | 2020-09-04 14:17 | CCD ---
Author Author [facility] Organization [facility] Address Unknown Phone Unavailable Care Team Providers Care Marine Engineering Professor Name Role Phone Liz Gray MD Unavailable [...] Arjun Unavailable Unavailable Sanders, Arjun Unavailable Unavailable Sanedrs, Arjun Unavailable Unavailable Sanders, Arjun Unavailable Unavailable Sanders, Arjun Unavailable Unavailable Sanders, Arjun Unavailable Unavailable Sanders, Arjun Unavailable Unavailable Sanders, Arjun Unavailable Unavailable Sanders, Arjun Unavailable Unavailable Sanders, Arjun Unavailable Unavailable Sanders, Arjun Unavailable Unavailable Sanders, Arjun Unavailable Unavailable Sanders, Arjun Unavailable Unavailable Sanders, Arjun Unavailable Unavailable Sanders, Arjun Unavailable Unavailable Sanders, Rajun Unavailable Unavailable Sanders, Arjun Unavailable Unavailable Sanders, [...] MD Unavailable Unavailable [place], 0000{ Unavailable Unavailable JNANET, M RAZA PA Unavailable Unavailable JANNET, M [...] is protected by Article 27-F of the [facility] Public Health law. If you continue you may have access to information: Regarding HIV / AIDS; Provided by facilities licensed or operated by the [facility] Office of Mental Health; or Provided by the [facility] Office for People With Developmental Disabilities. If such information is present, then the following [facility] mandated warning applies: This information has [...] law may result in a fine or skilled nursing sentence or both. A general authorization for the release of medical or other information is NOT sufficient authorization for further disc losure. Allergies and Adverse Reactions Type Description Substance Reaction Status Data Source(s ) Drug Class NO KNOWN ALLERGIES NO KNOWN ALLERGIES [facility] Family History Family Member Name Family Member Gender Family Member Status Date o f Status Description Data Source(s) Unknown Male Problem MEDENT ([facility], ) () Unknown Unknown Problem [facility] ([facility] Unknown Unknown Problem [facility] ([facility]) Encounters Encounter Providers Location Date Indications Data Source(s ) Outpatient Attender: Марина GRAVESJOSE M-SJP.JOSE M 12:00:00 AM EST - 08/09/2020 01:59:26 PM EST [facility] Outpatient [address] [id number] 08/02/2020 12:00:00 AM EST eCW1 ([facility]) Unknown [address] [id number] 08/01/2020 12:00:00 AM EST eCW1 ([facility]) Unknown [address] [id number] 07/03/2020 12:00:00 AM EST eCW1 ([facility]) Outpatient CT-SJP.SYR 06/28/2020 09:33:01 AM EST [facility]patient [address] [id number] 06/26/2020 12:00:00 AM EST eCW1 ([facility]) Outpatient Attender: RAZA SAMS Physical Therapy 05/20 05:00:00 PM EST [facility] Attender: ZHAO SLOAN MDAdmitter: ZHAO SLOAN MD [id number] 03/29/2020 10:58:30 AM EDT - 04/01/2020 01:43:00 PM EDT Atrial fibrillation, unspecified type [I48.91] [facility] Atrial fibrillation, unspecified type [I 48.91] Patient discharged. Outpatient NAWAF-SJMiguel.SYR 03/21/2020 09:35:31 AM EDT [facility] Outpatient Referrer: Марина GRAVESJOSE M-SJP.JOSE M 12:00:00 AM EDT [facility] Outpatient Attender: RAZA SAMS Physical Therapy 01/17 01:00:00 PM EDT [facility] ([facility]) Outpatient Attender: Sandra HO 02/02/2020 09:47:00 AM E DT [facility] Outpatient Attender: Arjun Sanders 02/02/2020 09:47:0 0 AM EDT PRESENCE OF CARDIAC PACEMAKER/ OTHER SPONDYLOSIS, LUMBAR REG [facility] PRESENCE OF CARDIAC PACEMAKER/ OTHER SPO NDYLOSIS, LUMBAR REG Outpatient Attender: Марина GRAVESJOSE M-SJP.JOSE M 01:49:44 PM EDT - 01/09/2020 02:49:29 PM EDT [facility] Outpatient NAWAF-SJP.SYR 12/14/2019 04:04:19 PM EDT [facility] Outpatient Attender: Марина LINO-SJP.JOSE M 12:00:00 AM EDT - 11/30/2019 11:58:00 AM EDT [facility] Outpatient Attender: Марина GRAVESJOSE M-SJMiguel.JOSE M 08:06:59 AM EDT - 11/09/2019 03:34:43 PM EDT [facility] Outpatient Attender: Arjun Sanders Physical Therapy 10/23/2019 09:00:0 0 AM EDT MED[facility] ([facility]) Outpatient Attender: RAZA SAMS Physical Therapy 09/17 09:00:00 AM EDT [facility] ([facility]) Outpatient Attender: ZHAO SLOAN MDAdmi tter: ZHAO SLOAN MDReferrer: ZHAO SLOAN MD ES1-[email or web address].CVAU 09/20/2019 05:54:00 AM EST - 09/20/2019 01:27:00 PM [facility] Patient discharged. Outpatient HOLLAND-SJP 09/09/2019 05:15:50 PM [facility] Outpatient Attender: Марина GRAVESJOSE M-SJP.JOSE M 12:00:00 AM EST - 09/07/2019 08:49:40 AM [facility] Outpatient Referrer: Liz GRAVESJOSE M-SJP.JOSE M 08/20 12:00:00 AM [facility] Outpatient [id number] 09/05/2019 09:07:25 AM [facility] Outpatient Referrer: RAZA SAMS 08/25/2019 12: 00:00 AM [facility] Spondylosis without myelopathy or radiculopathy, lumbosacral region [facility] Spondylosis without myelopathy or radicu lopathy, lumbosacral region Outpatient Referrer: RAZA SAMS 08/25/2019 12:00:00 AM [facility] Outpatient Referrer: RAZA SAMS 08/10/2019 12:00:00 AM [facility] Immunizations Vaccine Date Status Description Data Source(s) influenza, recombinant, quadrIvalent,injectable, prese rvative free 06/26/2020 03:12:00 PM EST completed eCW1 ([facility]) influenza, recombinant, quadrIvalent,injectable, prese rvative free 06/26/2020 03:12:00 PM EST completed eCW1 ([facility]) influenza, recombinant, quadrIvalent,injectable, prese rvative free 06/26/2020 03:12:00 PM EST completed eCW1 ([facility]) influenza, recombinant, quadrIvalent,injectable, prese rvative free 06/26/2020 03:12:00 PM EST completed eCW1 ([facility]) Medications Medication Brand Name Start Date Product Form Dose Route Admi nistrative Instructions Pharmacy Instructions Status Indications Reaction Description Data Source(s) Dexamethasone 2 MG Oral Tablet Dexamethasone 2 MG 07/03/2020 12:00: 00 AM EST active Dexamethasone 2 MG eCW1 ([facility]) atorvastatin 20 MG Oral Tablet Atorvastatin Calcium 20 MG Atorvastatin Calcium 20 MG 06/28/2020 12:00:00 AM EST 1.0 {tablet} activ e Atorvastatin Calcium 20 MG eCW1 ([facility]) atorvastatin 20 MG Oral Tablet Atorvastatin Calcium 20 MG Atorvastatin Calcium 20 MG 06/28/2020 12:00:00 AM EST 1.0 {tablet} activ e Atorvastatin Calcium 20 MG eCW1 ([facility]) atorvastatin 20 MG Oral Tablet Atorvastatin Calcium 20 MG Atorvastatin Calcium 20 MG 06/28/2020 12:00:00 AM EST 1.0 {tablet} activ e Atorvastatin Calcium 20 MG eCW1 ([facility]) atorvastatin 20 MG Oral Tablet Atorvastatin Calcium 20 MG Atorvastatin Calcium 20 MG 06/28/2020 12:00:00 AM EST 1.0 {tablet} activ e Atorvastatin Calcium 20 MG eCW1 ([facility]) Acetaminophen 325 MG Oral Tablet acetaminophen (TYLENO L) tablet 650 mg acetaminophen (TYLENOL) tablet 650 mg 04/01/2020 12:26:02 PM EDT 65 0 mg Oral active 650 mg, Oral, E very 6 hours PRN, Mild Pain (Pain Scale Score 1- 3), Pain, Starting 04/01/20 at 1226, For 30 days
Maximum daily dose of acetaminophen is 3000 mg from all sources in 24 hours.
[facility] Medication administered onsite NaCl infusion 0.9 % 5071-6164-98 04/01/2020 11:00:00 AM EDT 1000 mL Intravenous aborted at 75 mL/hr, Intravenous, Continuous, Starting 04/01/20 at 1100, For 4 hours, Pre-op [facility] Medication administered onsite Furosemide 20 MG Oral [...] by mouth 2 (two) times a day [facility] Polymyxin B 23640 UNT/ML / Trimethoprim 1 MG/ML Ophtha lmic Solution [Polytrim] Polytrim 10/16/2019 12:00:00 AM EDT active [facility] ([facility] 24 HR metoprolol succinate 200 MG Extend ed Release Oral Tablet metoprolol (TOPROL-XL) 200 MG 24 hr tablet metoprolol (TOPROL-XL) 200 MG 24 hr tablet 10/03/2019 12:00:00 AM EDT 200 mg Oral aborted Take 1 tablet (200 mg total) by mouth once daily [facility] Amiodarone hydrochloride 200 MG Oral Tablet amiodarone (PACERONE) 200 MG tablet amiodarone (PACERONE) 200 MG tablet 10/03/2019 12:00:00 AM EDT 200 mg Oral aborted Take 1 tablet (200 mg total) by mouth daily [facility] ondansetron (ZOFRAN) injection 4 mg 23232-535-68 09/20/2019 10:42:1 7 AM EST 4 mg Intravenous active 4 mg, In travenous, Every 8 hours PRN, nausea, vomiting, Starting Wed09/20/19 at 1042, Post-op [facility] Medication administered onsite Acetaminophen 325 MG Oral Tablet acetaminophen (TYLENO L) 325 MG tablet 650 mg acetaminophen (TYLENOL) 325 MG tablet 650 mg 09/20/2019 10:42:17 AM EST 650 mg Oral active 650 mg, Or al, Every 6 hours PRN, mild pain (1-3), Starting Wed09/20/19 at 1042, Post-op
"Maximum dose of acetaminophen is 4,000 mg from all sources in 24 hours."
[facility] Medication administered onsite iopamidol (ISOVUE-370) 76 % 99812 09/20/2019 09:54:52 AM EST active As needed, Starting Wed09/20/19 at 0954, Intra-Procedur e [facility] Medication administered onsite lidocaine (PF) (XYLOCAINE-MPF) 1 % injection [id number] 10/2019 09:10:20 AM EST active As needed, Start ing Wed09/20/19 at 0910, Intra-Procedure [facility] Medication administered onsite fentaNYL Citrate (PF) (SUBLIMAZE) injection 6786-9889-89 09/20/2019 08:47:35 AM EST active As neede d, Starting Wed09/20/19 at 0847, Intra-Procedure [facility] Medication administered onsite 2 ML Midazolam 1 MG/ML Injection midazolam (VERSED) in jection midazolam (VERSED) injection 09/20/2019 08:47:28 AM EST active As needed, Starting Wed09/20/19 at 0847, Intra-Procedure [facility] Medication administered onsite Dexmedetomidine HCl 400 mcg in sodium chloride (NS) 0.9 % 10 0 mL infusion 09/20/2019 08:47:10 AM EST active Intra-Procedure, Intra-op continuous PRN, Starting Wed09/20/19 at 0847, Until Discontinued [facility] Medication administered onsite Benzocaine 200 MG/ML Mucous Membrane Top ical Solution benzocaine (HURRICAINE) 20 % mouth spray benzocaine (HURRICAINE) 20 % mouth spray 09/20/2019 08 :36:19 AM EST active Intra-Pr ocedure, As needed, Starting Wed09/20/19 at 0836, Until Discontinued [facility] Medication administered onsite lidocaine (XYLOCAINE) 4 % external solution [id number] 09/20/2019 08:36:00 AM EST active Intra-Pr ocedure, As needed, Starting Wed09/20/19 at 0836, Until Discontinued [facility] Medication administered onsite Furosemide 20 MG Oral Tablet furosemide (LASIX) 20 MG tablet furosemide (LASIX) 20 MG tablet 05/05/2019 12:00:00 AM EDT 20 mg Oral activ e Take 1 tablet (20 mg total) by mouth daily as needed [facility] 24 HR metoprolol succinate 200 MG Extend ed Release Oral Tablet metoprolol succinate (TOPROL-XL) 200 MG 24 hr tablet metoprolol succinate (TOPROL-XL) 200 MG 24 hr tablet 05/03/2019 12:00:00 AM EDT 200 mg Oral ac tive Take 1 tablet (200 mg total) by mouth once daily [facility] 24 HR metoprolol succinate 200 MG Extend ed Release Oral Tablet Metoprolol Succinate ER 200 MG Oral Tablet Extended Release 24 Hour (TOPROL-XL) Metoprolol Succinate ER 200 MG Oral Tablet Extended Release 24 Hour (TOPROL-XL) 200 mg Oral aborted Take 200 mg by mouth daily [facility] gabapentin 300 MG Oral Capsule gabapentin (NEURONTIN) 300 MG capsule gabapentin (NEURONTIN) 300 MG capsule 600 mg Oral aborted Take 600 mg by mouth 3 (three) times a day [facility] Digoxin 0.125 MG Oral Tablet digoxin (LANOXIN) 125 MCG tablet digoxin (LANOXIN) 125 MCG tablet 125 ug Oral aborted Take 125 mcg by mouth daily [facility] Digoxin 0.125 MG Oral Tablet Digoxin 125 MCG Oral Tabl et (LANOXIN) Digoxin 125 MCG Oral Tablet (LANOXIN) 125 ug Oral aborted Take 125 mcg by mouth daily [facility] Insurance Providers Payer name Policy type / Coverage type Policy ID Covered alliance party ID Covered alliance party's relationship to [place] Policy [place] Plan Information FOR LIFE [id number] 2 [id number] Spo [id number] FOR LIFE O [id number] S [id number] EAST HUMANA [id number] [id number] EAST HUMANA [id number] 2 [id number] HUMANA EAST REG O [id number] S [id number] U [id number] Self [id number] HEA [id number] HEA [id number] S [id number] EXCELLUS BCBS [id number] Spo OEC [id number] EXCELLUS BCBS [id number] Spo [id number] FOR LIFE U [id number] Self [id number] [facility] BLUE CROSS 362 [id number] EXCELLUS BCBS B [id number] P LH [id number] EXCELLUS BCBS B [id number] P LH [id number] [place] Claim Medigap Part B [id number] Family De pendent [id number] BS Of [facility] Maintenance Organization ([facility]) [id number] Family Dependent [id number] Spo [id number] [place] Claim Medigap Part B [id number] Family De pendent [id number] BS Of [facility] Health Maintenance Organization ([facility]) [id number] Family Dependent [id number] [place] Claim Medigap Part B [id number] Family De pendent [id number] BS Of [facility] Maintenance Organization ([facility]) [id number] Family Dependent [id number] [place] Claim Medigap Part B [id number] Family De pendent [id number] BS Of [facility] Maintenance Organization ([facility]) [id number] Family Dependent [id number] BC INDEPENDENCE BLUE CROSS 362 [id number] HU2 [id number] BCBS [place] PPO 302/307 [id number] HU2 [id number] INDEPENDENT HEALTH [id number] HU2 [id number] [place] Claim Medigap Part B [id number] Family De pendent [id number] [facility] ([facility]) [id number] Family Dependent [id number] [place] Claim Medigap Part B [id number] Family De pendent [id number] [facility] ([facility]) [id number] Family Dependent [id number] [place] Claim Medigap Part B [id number] Family De pendent [id number] [facility] ([facility]) [id number] Family Dependent [id number] PI PI EXCELLUS BCBS PI PI EXCELLUS BCBS [id number] Spo OEC [id number] [place] Claim Medigap Part B [id number] Family De pendent [id number] BS Of [facility] Health Maintenance Organization (O) [id number] Family Dependent [id number] BCBS [place] PPO 302/307 [id number] BCBS [place] PPO 302/307 [id number] SP [id number] EXCELLUS BCBS B [id number] P OEC [id number] [place] (2018) Medigap Part B [id number] Family Dependen t [id number] [employer] BCBS Health Maintenance Organization (O) [id number] Family Dependent [id number] SELF PAY ONLY SP BCBS [place] PPO 302/307 [id number] HU2 [id number] [facility] HUMANA [id number] HU2 [id number] [facility] Region Claim Medigap Part B [id number] Family De pendent [id number] BS Of [facility] Health Maintenance Organization (O) [id number] Family Dependent [id number] PGBA [place] [id number] HU2 [id number] [facility] Region Claim Medigap Part B [id number] Family De pendent [id number] BS Of [facility] Health Maintenance Organization (O) [id number] Family Dependent [id number] [facility] Region Claim Commercial [id number] Family Depend ent [id number] [employer] Commercial [id number] Family Dependen t [id number] HEALTHNET/ AD O [id number] S [id number] [employer] Commercial [id number] Family Dependen t [id number] [employer] Commercial [id number] Family Dependen t [id number] [employer] Commercial [id number] Family Dependen t [id number] [employer] Commercial [id number] Family Dependen t [id number] PGBA [place] [id number] HU2 [id number] [employer] Commercial Family Dependen t PGBA [place] O [id number] P [id number] [facility] Region Commercial Family Dependen t SELF PAY UNAVAILABLE SP UNAVAILA BLE N REGIONAL CLAIMS KATY-O/P [id number] 01 [id number] Problems, Conditions, and Diagnoses Code Display Name Description Problem Type Effective Dates Data Source(s) Z79.01 [id number] 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 Pr oblem 08/02/2020 12:00:00 AM EST eCW1 ([facility]) E55.9 Vitamin D deficiency Vitamin D deficiency Problem 08/02/2020 12:00:00 AM EST eCW1 ([facility]) G47.00 Insomnia Insomnia Problem 08/02/2020 12:00:00 AM ES T eCW1 ([facility]) I48.20 [id number] Chronic atrial fibrillation Problem 06/26/20 20 12:00:00 AM EST eCW1 ([facility]) G47.33 45295649 Obstructive sleep apnea (adult) (pediatri c) Problem 06/26/2020 12:00:00 AM EST eCW1 ([facility]) F41.9 [id number] Anxiety Problem 06/26/2020 12:00:00 AM ES T eCW1 ([facility]) G47.33 [id number] KEMI (obstructive sleep apnea) Problem 06/26/2020 12:00:00 AM EST eCW1 ([facility]) E66.9 595905063 Obesity (BMI 30-39.9) Problem 06/26/2020 12: 00:00 AM EST eCW1 ([facility]) E78.5 Hyperlipidemia Hyperlipidemia Problem 06/26/2020 12:00: 00 AM EST eCW1 ([facility]) 536198695 Obesity Obesity Problem 12/04/2019 12:00:00 AM ED T [facility] ([facility] 78383633 Obstructive sleep apnea syndrome Obstructive sle ep apnea syndrome Problem 12/04/2019 12:00:00 AM EDT [facility] ([facility] 66613968 Cardiomyopathy Cardiomyopathy Problem 12/04/2019 12:00: 00 AM EDT [facility] ([facility] 08078628 Essential hypertension Essential hypertension Problem 12/04/2019 12:00:00 AM EDT [facility] ([facility] 68958377 Hyperlipidemia Hyperlipidemia Problem 12/04/2019 12:00: 00 AM EDT [facility] ([facility] Note: ASCVD 6.1% (10/2019) 0515334 Atrial flutter Atrial flutter Problem 12/04/2019 12:00: 00 AM EDT [facility] ([facility] 41848042 Sick sinus syndrome Sick sinus syndrome Problem 0 12/04/2019 12:00:00 AM EDT [facility] ([facility] E78.2 Mixed hyperlipidemia Mixed hyperlipidemia 64682976 11/30/2019 12:00:00 AM EDT [facility] I49.5 Sick sinus syndrome Sick sinus syndrome 62158307 0 09/07/2019 12:00:00 AM EST [facility] I48.92 Atrial flutter Atrial flutter [id number] 09/07/2019 12:00: 00 AM EST [facility] I49.5 Sick sinus syndrome Sick sinus syndrome Diagnosis 0 08/09/2020 12:43:38 PM EST [facility] G47.33 Obstructive sleep apnea (adult) (pediatr ic) Obstructive sleep apnea (adult) (pediatr Diagnosis 08/09/2020 12:43:38 PM EST [facility] E78.2 Mixed hyperlipidemia Mixed hyperlipidemia Diagnosis 08/09/2020 12:43:38 PM EST [facility] I42.9 Cardiomyopathy, unspecified Cardiomyopathy, unspecifie d Diagnosis 08/09/2020 12:43:38 PM EST [facility] I48.3 Typical atrial flutter Typical atrial flutter Diagnosi s 08/09/2020 12:43:38 PM EST [facility] I48.91 Unspecified atrial fibrillation Unspecified atri al fibrillation Diagnosis 08/09/2020 12:43:38 PM EST [facility] R07.9 Chest pain, unspecified Chest pain, unspecified Diagno sis 08/09/2020 12:43:38 PM EST [facility] Atrial fibrillation Atrial fibrillation Diagnosis 020 10:36:00 AM EDT [facility] Atrial fibrillation, unspecified type [I 48.91] Atrial fibrillation, unspecified type [I48.91] Diagnosis 04/01/2020 10:36:00 AM EDT [facility] Z68.38 Body mass index (BMI) 38.0-38.9, adult B umu mass index (bmi) 38.0-38.9, adult Diagnosis 01/09/2020 01:49:44 PM EDT [facility] E66.01 Morbid (severe) obesity due to excess ca lories Morbid (severe) obesity due to excess ca Diagnosis 01/09/2020 01:49:44 PM EDT [facility] I10 Essential (primary) hypertension Essential (primary) h ypertension Diagnosis 01/09/2020 01:49:44 PM EDT [facility] Z13.220 Encounter for screening for lipoid disor ders Encounter for screening for lipoid disor Diagnosis 11/09/2019 08:06:59 AM EDT [facility] I48.0 Paroxysmal atrial fibrillation Paroxysmal atrial fibri llation Diagnosis 09/20/2019 05:54:00 AM EST [facility] M47.817 Spondylosis without myelopathy or radicu lopathy, 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, lumbosacral region Diagnosis 08/25/2019 07:30:00 AM [facility] Surgeries/Procedures Procedure Description Date Indications Data Source(s) ECG ROUTINE ECG W/LEAST 12 LDS W/I&R POCT AMB EKG Routine 08/11/2020 9:39 AM EST Typical atrial flutter 08/11/2020 02:39:00 PM EST Typical atrial flutter [facility] Typical atrial flutter Injec Anesthetic Agent/Steroid Trans Epidural Lumb/Sacral Si ngle 07/15/2020 12:00:00 AM EST [facility] ([facility]) Epidurography Radiological Supervision & Interpretation 07/15/2020 12:00:00 AM EST [facility] ([facility]) Moderate Sedation Services; Same Phys Intl 15 Mins; PT >= 5 Years 07/15/2020 12:00:00 AM EST [facility] ([facility]) Moderate Sedation Services; Same Phys Each Additional 15 Min s 07/15/2020 12:00:00 AM EST [facility] ([facility]) Immunization: Flublok Quadrivalent (18 years & older) 0.5mL IM (Influenza) 06/26/2020 12:00:00 AM EST eCW1 ([facility]) Injec Anesthetic Agent/Steroid Trans Epidural Lumb/Sacral Si ngle 05/20/2020 12:00:00 AM EST [facility] ([facility]) Epidurography Radiological Supervision & Interpretation 05/20/2020 12:00:00 AM EST [facility] ([facility]) Moderate Sedation Services; Same Phys Intl 15 Mins; PT >= 5 Years 05/20/2020 12:00:00 AM EST [facility] ([facility]) EP LAB PROCEDURE EP LAB PROCEDURE Routine 04/01/2020 12:11 PM EDT 04/01/2020 12:11:29 PM [facility] EP LAB PROCEDURE LOG EP LAB PROCEDURE LOG 04/01/2020 10:56 AM EDT 04/01/2020 10:56:10 AM [facility] Needle electromyography, each extremity, with related paraspinal areas, when performed, done with nerve conduction, amplitude and latency/velocity study; complete, five or more muscles studied, innervated by three or more nerves or four or more spinal levels (list separately in addition to the code for primary procedure). 10/23/2019 12:00:00 AM EDT MEDEN T ([facility]) Nerve Conduction 9-10 Studies 10/23/2019 12:00:00 AM E DT [facility] ([facility]) X-Ray Sacrum & Coccyx Two Views 10/09/2019 12:00:00 AM EDT [facility] ([facility]) EP STUDY EP STUDY Routine 09/20/2019 10:06 AM EST Paroxysmal atrial fibrillation 09/20/2019 03:06:06 PM EST Pa roxysmal atrial fibrillation [facility] Paroxysmal atrial fibrillation MRI SPINAL CANAL LUMBAR W/O CONTRAST MATERIAL MR LUMB AR SPINE WITHOUT CONTRAST [id number] Routine 08/25/2019 8:55 AM EST Spondylosis without myelopathy or radiculopathy, lumbosacral region 08/25/2019 01:55:29 PM EST Spondylosis without myelopathy or radicu lopathy, lumbosacral region [facility] Spondylosis without myelopathy or radicu lopathy, lumbosacral region CARDIAC DEVICE (IMPLANT) CHECK CARDIAC DEVICE (IMPLANT) CHECK R outine 08/25/2019 7:30 AM EST Spondylosis without myelopathy or radiculopathy, lumbosacral region 08/25/2019 12:30:00 PM EST Spondylosis without myelopathy or radicu lopathy, lumbosacral region [facility] Spondylosis without myelopathy or radicu lopathy, lumbosacral region Results ID Date Data Source [id number] 07/10/2020 10:00:00 AM EST [facility] ([facility]) Name Value Range Interpretation Code Description Data Belinda rce(s) Supporting Document(s) Coronavirus 2019 Nasopharygeal Laboratory test result [facility] ([facility]) This nucleic acid amplification test was developed and its performance characteristics determined by [facility]. Nucleic acid amplification tests include PCR and [...] detected) result in this assay. Performed at: [employer] [address] [place] [address], [place], [place] [id number] Detective Precinct: Praveena Fu PhD, Phone: [phone] Not Detected ID Date Data Source [id number] 07/10/2020 10:00:00 AM EST [facility] Name Value Range Interpretation Code Description Data Belinda rce(s) Supporting Document(s) SARS coronavirus 2 RNA [facility] This lab was ordered by [facility] and reported by [facility]. ID Date Data Source PLZ HAND COMPLETE 06/27/2020 12:00:00 AM EST eCW1 ([facility]) Name Value Range Interpretation Code Description Data Belinda rce(s) Supporting Document(s) eCW1 ([facility]) ID Date Data Source [id number] 06/27/2020 12:00:00 AM EST eCW1 ([facility]) Name Value Range Interpretation Code Description Data Belinda rce(s) Supporting Document(s) Hemoglobin A1c/Hemoglobin.total in Blood 5.3 eCW1 ([facility]) ID Date Data Source LIPID PANEL (CARDIAC RISK) 06/27/2020 12:00:00 AM EST eCW1 ( [facility]) Name Value Range Interpretation Code Description Data Belinda rce(s) Supporting Document(s) Triglyceride [Mass/volume] in Serum or Plasma by calculation 210 <150 eCW1 ([facility]) Cholesterol [Moles/volume] in Serum or Plasma 251 <200 eCW1 ([facility]) Cholesterol in HDL [Moles/volume] in Serum or Plasma 52 >40 eCW1 ([facility]) 199 eCW1 ([facility]) Cholesterol in LDL [Mass/volume] in Serum or Plasma by calculation 15 7 <100 eCW1 ([facility]) 4.826 <5 eCW1 ([facility]) ID Date Data Source PT & APTT 06/27/2020 12:00:00 AM EST eCW1 ([facility]) Name Value Range Interpretation Code Description Data Belinda rce(s) Supporting Document(s) 13.6 12.5-14.3 eCW1 ([facility]) 1.02 eCW1 ([facility]) 40.2 24.2-38.5 eCW1 ([facility]) ID Date Data Source FREE T4 & TSH PANEL 06/27/2020 12:00:00 AM EST eCW1 ([facility]) Name Value Range Interpretation Code Description Data Belinda rce(s) Supporting Document(s) 4.270 0.358-3.740 eCW1 ([facility]) 0.90 0.76-1.46 eCW1 ([facility]) ID Date Data Source Comprehensive Metabolic Profile (CMP) 06/27/2020 12:00:00 AM EST eCW1 ([facility]) Name Value Range Interpretation Code Description Data Belinda rce(s) Supporting Document(s) 82 70-100 eCW1 ([facility]) 1.03 0.55-1.30 eCW1 ([facility]) 137 136-145 eCW1 ([facility]) 21 7-18 eCW1 ([facility]) 58.8 >51 eCW1 ([facility]) 4.3 3.5-5.1 eCW1 ([facility]) 105 98-107 eCW1 ([facility]) 9.4 8.5-10.1 eCW1 ([facility]) 31 21-32 eCW1 ([facility]) 16 7-37 eCW1 ([facility]) 30 12-78 eCW1 ([facility]) 92 45-117 eCW1 ([facility]) 7.3 6.4-8.2 eCW1 ([facility]) 0.3 0.2-1.0 eCW1 ([facility]) 3.4 3.2-5.2 eCW1 ([facility]) 0.9 1.2-2.2 eCW1 ([facility]) ID Date Data Source CBC with Differential 06/27/2020 12:00:00 AM EST eCW1 ([facility]) Name Value Range Interpretation Code Description Data Belinda rce(s) Supporting Document(s) 4.65 4.00-5.40 eCW1 ([facility]) 6.1 4.0-10.0 eCW1 ([facility]) 12.9 12.0-15.5 eCW1 ([facility]) 92.5 80.0-96.0 eCW1 ([facility]) 43.0 36.0-47.0 eCW1 ([facility]) 27.7 27.0-33.0 eCW1 ([facility]) 30.0 32.0-36.5 eCW1 ([facility]) 13.9 11.5-14.5 eCW1 ([facility]) 56.4 36.0-66.0 eCW1 ([facility]) 306 150-450 eCW1 ([facility]) 31.4 24.0-44.0 eCW1 ([facility]) 1.8 0.0-3.0 eCW1 ([facility]) 9.0 0.0-5.0 eCW1 ([facility]) 1.1 0.0-1.0 eCW1 ([facility]) 1.9 1.5-5.0 eCW1 ([facility]) 3.4 1.5-8.5 eCW1 ([facility]) 0.6 0.0-0.8 eCW1 ([facility]) 0.1 0.0-0.5 eCW1 ([facility]) 0.1 0.0-0.2 eCW1 ([facility]) ID Date Data Source [id number] 05/16/2020 11:40:00 AM EDT [facility] ([facility]) Name Value Range Interpretation Code Description Data Belinda rce(s) Supporting Document(s) Coronavirus 2019 Nasopharygeal Laboratory test result [facility] ([facility]) This nucleic acid amplification [...] detected) result in this assay. Performed at: [facility] [place] [id number] Detective Precinct: Akosua Campbell MD, Phone: [phone] Not Detected ID Date Data Source [id number] 05/16/2020 11:40:00 AM EDT [facility] Name Value Range Interpretation Code Description Data Belinda rce(s) Supporting Document(s) SARS coronavirus 2 RNA [facility] This lab was ordered by [facility] and reported by [facility]. ID Date Data Source [id number] 05/16/2020 10:05:00 AM EDT [facility] ([facility]) Name Value Range Interpretation Code Description Data Belinda rce(s) Supporting Document(s) Prothrombin time (PT) Laboratory test result [facility] ([facility]) ID Date Data Source [id number] 05/16/2020 10:05:00 AM EDT [facility] ([facility]) Name Value Range Interpretation Code Description Data Belinda rce(s) Supporting Document(s) Prothrombin Time 13.2 s 12.5-14.3 [facility] ([facility]) Partial Thromboplastin Time 35.9 s 24.2-38.5 [facility] ([facility]) Inr 0.98 [facility] ([facility]) THERAPUTIC HUMAN INR VALUES INDICATIONS NORMAL RANGES PROPHYLAXIS/TREATMENT OF: VENOUS THROMBOSIS 2.0-3.0 PULMONARY EMBOLISM 2.0-3.0 PREVENTION OF SYSTEMIC EMBOLISM FROM: TISSUE HEART VALVES 2.0-3.0 ACUTE MYOCARDIAL INFARCTION 2.0-3.0 VALVULAR HEART DISEASE 2.0-3.0 ATRIAL FIBRILLATION 2.0-3.0 MECHANICAL VALVES(HIGH RISK) 2.5-3.5 RECURRENT MYOCARDIAL INFARCTION 2.5-3.5 ID Date Data Source [id number] 05/16/2020 10:05:00 AM EDT [facility] ([facility]) Name Value Range Interpretation Code Description Data Belinda rce(s) Supporting Document(s) Collagen Epinephrine 159 s 74-162 [facility] ([facility]) Results may be affected by platelet coun ts less than 150,000/mL or hematocrits less than 35%. If COL/EPI is NORMAL, COL/ADP is not performed. Result Interpretation: COL/EPI COL/ADP NORMAL NORMAL NORMAL ASA ABNORMAL NORMAL vWD ABNORMAL NORMAL GLANZMANN'S ABNORMAL ABNORMAL THROMBASTHENIA POSSIBLE DRUG ABNORMAL ABNORMAL EFFECT ID Date Data Source [id number] 05/16/2020 10:05:00 AM EDT [facility] ([facility] [...] ABNORMAL ABNORMAL EFFECT ID Date Data Source [id number] 05/16/2020 10:05:00 AM EDT [facility] ([facility] Name Value Range Interpretation Code Description Data Belinda rce(s) Supporting Document(s) aPTT in Platelet poor plasma by Coagulation assay 35.9 s 24.2-38. 5 [facility] ([facility] ID Date Data Source [id number] 05/16/2020 10:05:00 AM EDT [facility] ([facility] [...] MYOCARDIAL INFARCTION 2.5-3.5 ID Date Data Source [id number] 04/01/2020 12:11:27 PM EDT [facility] Name Value Range Interpretation Code Description Data Belinda rce(s) Supporting Document(s) History and Physical [facility] JDTSZp3nZsSOTtYx10/IKDikIVVpm2PsQPftMIz0FQocAIZkW6YaNUE8mZ6mHFP7GCtMJyJoOaEtLGR8 lbm [file] kT+Fund Controller+L/vqznC90bRbLoo+CXJZ43iYxix5Ndmd8Ob7ggjKbhPAlfKmkfP02yOFPVTWhw8AeQL6Ck7Wph [file] H5KfVrNQ8QFp0FMvJ2MZT9fHZnQp9KFGEgGYZTPrAsXA3QIOg= ID Date Data Source [id number] 03/29/2020 10:58:30 AM EDT [facility] Name Value Range Interpretation Code Description Data Belinda rce(s) Supporting Document(s) Progress Note [facility] PPNZPo0jXvIARuQx95/ZIUnpJNRig8ZqPRrvZQt4RZqoXEVmK1CfMBO8hT3yGUH5AKuWHuHaFhKsARLl lbm [file] vfGhE1ZTTvTiE+WE3wHSg+Dg0Fl2ShlsF5knBsFXz9UYw6FNklCYSPZg3P ID Date Data Source [id number] 03/27/2020 12:00:00 AM EDT [facility] Name Value Range Interpretation Code Description Data Belinda rce(s) Supporting Document(s) SARS coronavirus 2 RNA [Presence] in Res piratory specimen by KRISTIAN with probe detection [facility] This lab was ordered by [facility] and reported by [facility]. ID Date Data Source [id number] 03/20/2020 09:24:00 AM EDT [facility] ([facility] [...] Little GFR Left</content>
<content>ESRD GFR <15 on PEANUT PICKER</content>
<content></content> Potassium Serum 4.1 meq/L 3.5-5.1 [facility] ([facility] Chloride Level 104 meq/L 98-107 [facility] ([facility] Carbon Dioxide Level 28 meq/L 21-32 [facility] ([facility] Calcium Level 8.4 mg/dL 8.5-10.1 [facility] ([facility] Anion Gap 7 meq/L 8-16 [facility] ([facility] ID Date Data Source [id number] 03/20/2020 09:24:00 AM EDT [facility] ([facility] Name Value Range Interpretation Code Description Data Belinda rce(s) Supporting Document(s) Red Blood Count 4.34 10 4.00-5.40 [facility] ([facility] White Blood Count 7.4 10 4.0-10.0 [facility] ([facility] Hemoglobin 11.9 g/dL 12.0-15.5 [facility] ([facility] Mean Corpuscular Hemoglobin 27.4 pg 27.0-33.0 [facility] ([facility] Hematocrit 39.7 % 36.0-47.0 [...] [facility] ID Date Data Source [id number] 03/15/2020 07:44:00 PM EDT [facility] ([facility] Name Value Range Interpretation Code Description Data Belinda rce(s) Supporting Document(s) Troponin I.cardiac [Mass/volume] in Serum or Plasma 0.00 ng/mL 0.00-0 .08 [facility] ([facility] ID Date Data Source [id number] 02/13/2020 06:44:38 PM EDT [facility] Name Value Range Interpretation Code Description Data Belinda rce(s) Supporting Document(s) &PDF [facility] CWJNZu5pGcKBQmLd66/ATNxkTJDve5FwGPygWSw2LCiySBHkA5HsjTgqONUYAFIGF3TzDVkSEyQeEAVx yKE [file] ICAgICAgICAgICAgICAgICAgICAgICAgICAgICAgICAgICAgICAgICAgICAgICAgICAgICAgICAgICAg CRVcCHDtPKLcGZWwPCAcWNNbTD9VIMIkPVLcYSBoSUIbPIKiMQTtLZPdGRDsGBKgPWInGMXkJJUcAQDg ICAgICAgICAgICAgICAgICAgICAgICAgICAgICAgIC PoTDYfIADfQJEnENXmXOHtJSPcIHDtVPPiYZKzXU4OQIIzVVNgZOMpTTKaUURpNGXhJMAhZZUwHYAwCI AgICAgICAgICAgICAgICAgICAgICAgICAgICAgICAgICAgICAgICAgICAgICAgICAgICAgICAgICAgIC PhVBKxDQFeNWOeHJ6OJOKkUPSdYXNxNXYnNKBqESPn ICAgICAgICAgICAgICAgICAgICAgICAgICAgICAgICAgICAgICAgICAgICAgICAgICAgICAgICAgICAg GXIjLSOkHMRyZLVxSXYcCZQeFSKcSC6TDJKcUFWgLYFgPTHsSWWmJLJwPPBcHXAbJWViABIoJRFcYPUh ICAgICAgICAgICAgICAgICAgICAgICAgICAgICAgIC BsQYJmFRYzTDJdVQXxZZJhBZQuGKPfNMDrDOYbDYXvZA2TFYTdYCRhTNDrEPUbCNNnBVNgXKIyTXRgWR AgICAgICAgICAgICAgICAgICAgICAgICAgICAgICAgICAgICAgICAgICAgICAgICAgICAgICAgICAgIC UuUCQfIXNyPRXbENCcLJ4FCQDlJFUzWUPxUQEyJAWl ICAgICAgICAgICAgICAgICAgICAgICAgICAgICAgICAgICAgICAgICAgICAgICAgICAgICAgICAgICAg LLHaUMMxRBEhPGCcHCOsOYQdWGXzIYLmBW8SMAVqZSHjXVTaTVViYYLdRCMlYUFrVYJpRFDhUXBwAZIz ICAgICAgICAgICAgICAgICAgICAgICAgICAgICAgIC AeAESxZPZtEXElAHDkSKTzERUmZFCgOUOrKYKyMQWeLMXiFG4MFQFwAZUnJORgOKTuDDEyBFJsTTYqDI AgICAgICAgICAgICAgICAgICAgICAgICAgICAgICAgICAgICAgICAgICAgICAgICAgICAgICAgICAgIC KmAUJuTMSnNXTmQUYrHRLkXG1UBAXtHOPaBUEtBGYo ICAgICAgICAgICAgICAgICAgICAgICAgICAgICAgICAgICAgICAgICAgICAgICAgICAgICAgICAgICAg MFHtNKQmIYDpSKKoMKRlYKBjIAYkDCCeUUGjCE4LSK84lGXqn8Q8VQLcKD6mbif/Ax3NTLfsswUxqQMl BO8KMqBvGC2xox0HOyVcFG4kbc8JOPrNLaOcT0U9zB KuWJVrJNSXNlVpW52gZUuzLa26EQjkKLEiZjTgVBl1Hm6RPwXpO1poOZUeZnW6PNAoJtO8PSXqQrPcJC whHW8Tj9VffSDkQWf+Cb6EPF0fq8OwERcjKCOhZM5yoo2DMAlPZxKoZ9T8hRQaF8R7SDxaJf2JDVMqLB BtCRrdFWMKNLieRH0QCX0tqyL2VX8AsCJoXMHgIDWi aWNfLBv9X47mnSOoXLqsGV0RCMZ+Nelson+Lk6ULZWdEWEoIHXgRnBvEUNICkHfC59ibEQcKVPqFBMiCEIs Ik6OMOYvN2LmhoOxbBunumVpTPYyTDIUIF6FAKcmpcWrrXBwlIyvJU63eFnrNS5STd0GCoRaYH5fgf3P tIMrTb6TYMMoDq0IHLUiIGIpTPLcRZR6FVMrFrUiVQ zsGAFzKHNzELX2FCZgVKFvPS0SGfHoKLVhWSa3OWvuDPMcRMAvfn3CQBYbXVUxBNsaVvAoMDMtJPQhLG srXKAwSFKcQUhhQDCfXLIrVE3YOkBmWYPaINV1COGlWNRsYDYhez2IMKGlPTUsQxurHSNnRDPtKGAgFC zcMINeVQG4XNHdYRQzTQBpQS4LEyXaJZEkPTCuEqKe TMYqXIDpgm6MMSNlJDMoHaP1GCNuAXXiBTPnLGnjRILhSXI9GofdRWAmRSSuYH0SBwCyUMClKMb1MrPf EUKqYWXlzu4ATYEnLYSeGHLoWMAiZVStSGWjXRplKXUwDYD9RpKyZBVmLAZqIX9IGiGzCEKlJBg1CDNr ETUtRFZugq5JYVCbUHVxNPj5RUPrPPDxLZVdHEkeXI XmUABzYOieYVVoDEOaIL8BLzZwYSWbTOPyLRNxMCCvBFTkoj5TIILvLJElWGk0XvXxGLGqIGUrCDmfPY GdVDA4XCB0UUVaZSMvFW0TGaHwOBJbTCzzLXSiEMIkAZZbve7DENIbMODgTYe2XQPlMMOqBJTxJDd7vy KyvKCcNWk5HA0BN4HjzoDaQcOPSp4Me533BHCkLNPo Gv1JR2zuIj2pZGXkIIGFKp2JWUm6SZEvLxNoSnXvMiRvNUTwKCE2HWo3PeMjWOmlXaYzVUh+IDwwNjAy OrP6EvJ0UcZlJZOfZvFjCJHaAfLmGYT0AJJtIV1kFGZOPz8+XBlchKSobTqzMZNIAzQmYBC1JGrpJMCG Rg0K ID Date Data Source [id number] 02/02/2020 01:07:00 PM EDT [facility] DATE OF EXAM: 02/02/2020MRI PELVIS: [...] Center .End of diagnostic report for accession: [id number] Interpreted: Marck Duggan MDTranscribed: 02/02/2020 12:37 PMSigned: 02/02/2020 01:07 PM Marck Duggan MD [facility] # [id number] BILL # [id number] [facility] Name Value Range Interpretation Code Description Data Belinda rce(s) Supporting Document(s) ID Date Data Source [id number] 02/02/2020 10:52:00 AM EDT [facility] DATE OF EXAM: 02/02/2020Chest 2V [...] disease. Lingular scarring. Professional interpretation performed at [facility] [phone].End of diagnostic report for accession: [id number] Interpreted: Nir Coffey MDTranscribed: 02/02/2020 10:52 AMSigned: 02/02/2020 10:52 AM Nir Coffey MD -------- [facility] # [id number] BILL # [id number] [facility] Name Value Range Interpretation Code Description Data Belinda rce(s) Supporting Document(s) ID Date Data Source [id number] 09/20/2019 10:32:05 AM EST [facility] Name Value Range Interpretation Code Description Data Belinda rce(s) Supporting Document(s) &PDF [facility] PBUTJk1rNnGDJhBn26/YIWkjNXIlc8AcFNsdABr0XVzmVJJwN5ThrZhkPQUFLUNYH3GzTHcGPoEjZLBk oRX YjGfYWnYE3HD0dUQZayoMnhpW8aF6eFE2SIHZ+Gt5ZBD9nk1ElPWw0NGRvb0BfHIchMAy5H6KzzEZugd VeDfrqhUJVTEOhHRNwG8rzmxm4hWCtLnB5Id6XIzAir2IsLWIkOJzUlb9rT42oKwL+L7D/gcC+pIBjcT s9jKlpU8DoYm4nGf1yfBuiDiDRJ4ws5XAE++t3rpLO 0fqCiJE1Blwvm4FW6rlaBCHSrv/6ttw1JLtkBW+2H/1QicFM/OMbsZtmq+849Jp0xw+c50zvlt7ODRyw mAmG8iLMHvJzC3RRos+UiUER8PUCmYys+oVN68G8krp+Eqgc7CVeertAcDHAFMrvgC+JxYe6EEsy1KSp nCDBn+jJLAHfdkoKTqLdGhQueqJxJUViIdEbJaaSYS [file] CKWdkURrRSx5L82rqRHpFVweCC0DBID+Nelson+Ez3YSXUcIXRqRXEqOoPyBECFKmJvM8XvN3EJq9VoS6Qr BU46dXtijwPjVLckNU7FPO3lRATeEMFRQC1RwKMarA8dccAiJGKnYOJSVfLdZ72ycPZxZTLuXBV2BZLn Rz2WTCUnS9WergZrnVugucPzQLKlDYYTEU5GAGzhto MmsWOivIecLD87iIahGI4JMp2WXlDeCY8ylu2HbMKzKq2ADOAeVW2BOZOmUACpQTTxMKS1ZWNlJvIwSU wuRNIxMBSsUKQ4QLBbVLJhHW4TRbNyLSBvRKehAxYkLQSkHJWeqw5VEAIpXRPmLLY7YfBpMFEmZKEtTI utORZeSVMmDMueHMRdAPFpQA3FUhWdNDCoSILbCwoh CKNkBWScsp1OBMZhQABaGMR7LzLfCVWqFTYsWFwyLGDwLHHyBHK0WQKeEPYsDK2IDnBkUWMvQmZ9IUHq OITmGQCinn1YCXBfYZGzTTa4HbDoYMVzYKVjZVgnCJUaHAEbAZA4UYReOATgKJ0SLrXrTCGxChMgVxIb TLFxXMAebf0JKOYkYYVtFwUfHKScEYLvMHNvDEbwKG YmRFGhBJq5HFXaAJBeGS0CTuYwFOGdDaY0UHXbRFJtGYUwjy0TODXnMWLbWibaQsJeLZXvMNXiEPthLP LjAHOkZivkKFWuOSQbUS1FJhBxQQJjFXKoOQMfVDCjYZAysz5KMZAoWZMoDCW8HlBbITKiXGYsYKwdXU GsYFM9SVz7WTWwDLAmGW1LYmFkRDBxZZd8OOYvLWLl ZBBadp0KWSBjGNGbFID3MCVpZMPkYLOvIKivBEJpMMA0CvA0KAYeSANxLE2MZgVcVAWfYOA4JANlPLKg CWTchb1DEQEcOAMnCEhlGYBiXIEgBPKoHBfsXIVdWTSuMOf5QKOpJDToAN8RRbQmLCQxGWS8VOQeGKUl HGBbab6VPFHsIVYsRvC9LgZfRPEgSKMgEMcqQSIqQO GdNmD6SIMkBASbME1OHeXpQIWjIGDsYINeEXVtXDRggv2GSGAoHWVoMjU4IQFpNFVrCBUaYUqbLPTxEJ FtAnp9HLDuXHHtHB1MIqIwKUMjKOt0UAAtWIKbIJBcfm7HCGCtICZnINLgAFQdPMCfZCFrLJyvHCWdDI A4IzTlJRQnPDShRC9TIiCiYSCbYoGkCLCyIMSiKEZc gl4XUAUdGVYxOQZ5JeKkDHPdVRTuUAzbRREmXJMnXAB0GAHdJZIsCI2LLaRyNRdaWWBXVoe0WFlfD0j7 JQSfAL5TU1Ubq9MlIybsXUJJRQjfBK5injAuLLNaEd7AQ3oOZgfqHkUbJhZ4IlQgQassPPMdFqLaILBl NXHyLCGrDeX5Jc0zPLQdBTHeLXx8RNNlYYAqZpEqG0 CxNLFgXEXxDVTuKwxqIcVhQT7OOr5BJnM5SJT8rIMyKn3QQxCgCDgKWwElET8UJWu= ID Date Data Source [id number] 09/11/2019 08:37:00 AM EST [facility] ([facility] Name Value Range Interpretation Code Description Data Belinda rce(s) Supporting Document(s) Glucose, Fasting 78 mg/dL 70-100 [facility] ([facility] Creatinine For GFR 1.05 [...] Little GFR Left</content>
<content>ESRD GFR <15 on PEANUT PICKER</content>
<content></content> Carbon Dioxide Level 29 meq/L 21-32 [facility] ([facility] Anion Gap 5 meq/L 8-16 [facility] Chloride Level 107 meq/L 98-107 [facility] ([facility] Calcium Level 9.0 mg/dL 8.5-10.1 [facility] ([facility] ID Date Data Source [id number] 09/11/2019 08:37:00 AM EST [facility] ([facility] [...] [facility] ID Date Data Source [id number] 09/09/2019 05:15:23 PM EST [facility] Name Value Range Interpretation Code Description Data Belinda rce(s) Supporting Document(s) &PDF [facility] HFHRDc0xGrBUJbDy58/QXCspYQDsd1DyMVfrUXj4DYjgZXYnP5ZkjNxqCWMMUWXNB9RjHYhJSqPzSMJz yKE CamTDqQ7rmfHFfycKPg5Qzk3FhjUwioxfRXyIaNf8VBdBcNQ7wxk6KQZJoYI3ilx2PNOQ5XG6HcBk9YA IzS2RnGSPfPCJag8TgSJ4EJZ8rqXrkSaU5KR5+AXjgRFV3jdGziU2HWLGfAY3g8UMJ/n7A/QcChwMSIL ZDMrNxbxuFsnBQHzFajmHi14DkiwlA0oK1Z1a2m/1p DBdLF8FgjTUk90NZXIB6YXkSxBYcWTxNCxF9+og4PQLurMg7Mz+xHrdgL7Gm/kH3auA7Yth5bE8s/l7x qofEJhNZJMWBUdlq/YUvjIyI8Si1rMn4qFE7/KtfI/VH/odZlOqE/MlGaTLvHBgqtCzI3diPZyzNkrfP U9RRsDLAOsIY/8VuDMGZXM0I9fh5paA8bIAN02HtDz wv3AYlMXXw9O1PbBjiKB9RG05pchgHRaNNqUjajXj7mgrEyagtozYW78kQYv68EobbGRVvea9gHnCADT dHj1ifUJ2itr5pT/nUxdC1Ymr99E0llwH2MTRenxSx76tpkH4QtmVsN1MHHyWau9wdxiefvIv7ZugF0/ o0FYpYh7daHmV8ih5MnrKpeAf+y2eF+W7yaQypDqVN 9urlsMrGzrKNsufFb+F7xUoyDl6W39uUgGNqI6cSuf1nm/yoOKamSPrOTcSWHITpLdM2RdkfpJWwfflT vgGkqfynSz8Oh4/DcvFtE16SKRko0Om4jGl7vT4hARFntA1x44dO4iltRKakyM2s63nW3yfwUpVvx57u hMXmfoFzFyDb/ozle8sntfdjpSXWVTteBblO7PisXx 3x/0Z2GMC8ZYXWAQOnaZtum6Xb1CBbxdmaPRYHvYLI7z/Andrae/GPfnYQhBwR9yafnIt0MbYxjdwGgh8X [file] AgICAgICAgICAgICAgICAgICAgICAgICAgICAgICAgICAgICAgICAgICAgICAgICAgICAgICAgICAgIC AgDQogICAgICAgICAgICAgICAgICAgICAgICAgICAg ICAgICAgICAgICAgICAgICAgICAgICAgICAgICAgICAgICAgICAgICAgICAgICAgICAgICAgICAgICAg ICAgICAgICAgICAgDQogICAgICAgICAgICAgICAgICAgICAgICAgICAgICAgICAgICAgICAgICAgICAg ICAgICAgICAgICAgICAgICAgICAgICAgICAgICAgIC AgICAgICAgICAgICAgICAgICAgICAgDQogICAgICAgICAgICAgICAgICAgICAgICAgICAgICAgICAgIC AgICAgICAgICAgICAgICAgICAgICAgICAgICAgICAgICAgICAgICAgICAgICAgICAgICAgICAgICAgIC AgICAgDQogICAgICAgICAgICAgICAgICAgICAgICAg ICAgICAgICAgICAgICAgICAgICAgICAgICAgICAgICAgICAgICAgICAgICAgICAgICAgICAgICAgICAg ICAgICAgICAgICAgICAgDQogICAgICAgICAgICAgICAgICAgICAgICAgICAgICAgICAgICAgICAgICAg ICAgICAgICAgICAgICAgICAgICAgICAgICAgICAgIC AgICAgICAgICAgICAgICAgICAgICAgICAgDQogICAgICAgICAgICAgICAgICAgICAgICAgICAgICAgIC AgICAgICAgICAgICAgICAgICAgICAgICAgICAgICAgICAgICAgICAgICAgICAgICAgICAgICAgICAgIC AgICAgICAgDQogICAgICAgICAgICAgICAgICAgICAg ICAgICAgICAgICAgICAgICAgICAgICAgICAgICAgICAgICAgICAgICAgICAgICAgICAgICAgICAgICAg ICAgICAgICAgICAgICAgICAgDQogICAgICAgICAgICAgICAgICAgICAgICAgICAgICAgICAgICAgICAg ICAgICAgICAgICAgICAgICAgICAgICAgICAgICAgIC AgICAgICAgICAgICAgICAgICAgICAgICAgICAgDQogICAgICAgICAgICAgICAgICAgICAgICAgICAgIC AgICAgICAgICAgICAgICAgICAgICAgICAgICAgICAgICAgICAgICAgICAgICAgICAgICAgICAgICAgIC SuYMZoZGOsUJDdAOm4S3xtUCNvLUJcMW2vCSf3Wx4+ DTwFXdXoMSR3sdSopD3WLO6uj8NuBPgaLYEmk9VaRJv0JL7LXKXrLOelKF8HTVodco6YKBVtUFYdvXCA q0giLdDvXIS4XJWcNkzoJP7TLWYxZ8ibhqKaBWHsUPRCAC1KMgAmK1LsdI89IWVTWi8+DQplbmRvYmoN RgI3PLLxb4OoJLy4FA3JCEStBGjuVU8NBNUddC8nTT zjXM7TUpAoGERrALASQvSqA30vcHMxRZm9W2SjRfDhLPIgThkjBWRaESmpKxJsRSNzFbYrFPksOV7+ID 4+MOqlNM1ROQpkkvIsQCYjEm6CUSBqNMY2LBArhDOwOXIqBUGESDfvLM3DiHUmCZV8fQ1eSXizECGmXV TpV3sLXcAwrBgcGM80jKjcppIssRRzNNm+Cx6RBK1f d1XqNZs7elVzKNueIJE5HYmoJQHqSQIhOZMhBPK7BDQ2UTVEOnKeDLJnKFVpZExuNSVcFERhnx8NVJPr FJUoYWW7VPNvIYZiBZGvWCksRRFbBNB5XBmpTNUfWLKsCP8UDgUxJEAwHVKaSCCsQTGgMSMcmu3RHOOv NDEnTvosWuZuACMtPEDsMUvrKPNvEIGaEKQ4QEDiHQ VqEH4AViWtBSDrGRG7WRLjQCNaVPPtnn5GKKAuCYAaYKO9CIGzYXGyERQsYXjhOXQwFAG7NwcsAXSsUZ LcWJ9IRfJyEMGbRWZwEiwyULZbVOHwmw4RAQNwNRDaAEXvAcNyODChAORaEOhuPBZwFOI1BdB9HPIcYG PyNI4VKeFoDVZmGSAwXNPtHUHrCHQcum7UAJChIYSm GWTzEBGxFQCnOOVgCJywQXSgPYQ8OjWpNZRnLAVzVE6YMqIcKLEcOTOcVTMoESLwHSWzfz2UuAEgpBma dd8TBSeKWd9LdBwbBNU5GZlpJn4xjKIvSdKgGXDVKs8HnrGwOBUtRVQWDFfcAAZxMUzoQAA9WJUlYRT7 PsQcEsYqBTEvXKPjDCjyMZK5HxbiQcA5E4F8NLorGQ O6BPl3FnQiISHuNVQmSwJ0QSBrFZwgAAX+FL7dUSu+Gh8Nz5FcnrU9cdDaWVdoFwA2Cu2OUXCMX3QANb == ID Date Data Source [id number] 08/25/2019 05:03:02 PM [facility] MR LUMBAR SPINE WITHOUT CONTRAST [id number] NAL RESULTInterpreted by:Ariel Strickland MD08/25/2019 8:19 AM MR LUMBAR SPINE WITHOUT CONTRAST [id number] CLINICAL INFORMATION: R/O:HNP, STENOSIS H:65" W:236 PATIENT [...] disc herniation, spinal stenosis or foraminal narrowing.L4-5: Zoin-fg-dqxlridl facet hypertrophy is noted. No disc herniation, spinal stenosis or foraminal narrowing.L5-S1: No disc herniation, spinal stenosis or foraminal narrowing.OTHER: NoneIMPRESSION:Dwnb-ac-phhroamg grade facet hypertrophy at the L3-4 and L4-5 levels.This document has been electronically signed by Ariel Strickland MD on 08/25/2019 5:00 PM Name Value Range Interpretation Code Description Data Belinda rce(s) Supporting Document(s) Procedure Social History Code Duration Value Status Description Data Source(s ) Alcohol intake 08/11/2020 12:00:00 AM EST Yes completed [facility] Smoking 08/11/2020 12:00:00 AM EST Never smoker completed Never [facility] Smoking 08/02/2020 12:00:00 AM EST Never Smoker completed Never [facility] [place] eCW1 ([facility]) Smoking 08/02/2020 12:00:00 AM EST Never Smoker completed Never [facility] [place] eCW1 ([facility]) Smoking 06/26/2020 12:00:00 AM EST Never Smoker completed Never [facility] [place] eCW1 ([facility]) Smoking 06/26/2020 12:00:00 AM EST Never Smoker completed Never [facility] eCW1 ([facility]) Alcohol intake 04/01/2020 12:00:00 AM EDT Ex-drinker (finding) comp leted Ex- drinker (finding) [facility] Tobacco use and exposure 04/01/2020 12:00:00 AM EDT Never used co mpleted Never used [facility] Smoking 04/01/2020 12:00:00 AM EDT Never smoker completed Never [facility] Smoking 12/21/2019 12:00:00 AM EDT Patient has never smoked co mpleted Patient has never smoked MEDENT ([facility]) Alcohol intake 09/20/2019 12:00:00 AM EST Yes completed [facility] Smoking 09/20/2019 12:00:00 AM EST Never smoker completed Never [facility] Vital Signs ID Date Data Source UNK Name Value Range Interpretation Code Description Data Source(s) Oxygen saturation in Arterial blood by Pulse oximetry 98 % 98 % [facility] Body mass index (BMI) [Ratio] 39.94 kg/m2 39.94 kg/m2 [facility] Body weight 108.863 kg 108.863 kg [facility] Body height 165.1 cm 165.1 cm [facility] Heart rate 79 /min 79 /min [facility] Diastolic blood pressure 79 mm[Hg] 79 mm[Hg] [facility] Systolic blood pressure 128 mm[Hg] 128 mm[Hg] [facility] Diastolic blood pressure 74 mm[Hg] 74 mm[Hg] eCW1 ([facility]) Systolic blood pressure 118 mm[Hg] 118 mm[Hg] e CW1 ([facility]) Body temperature 98.3 [degF] 98.3 [degF] eCW1 ( [facility]) Respiratory rate 16 /min 16 /min eCW1 ([facility]) Heart rate 88 /min 88 /min eCW1 ([facility]) Body mass index (BMI) [Ratio] 38.60 kg/m2 38.60 kg/m2 eCW1 ([facility]) Body height 65 [in_i] 65 [in_i] eCW1 ([facility]) Body weight 232 [lb_av] 232 [lb_av] eCW1 ([facility]) Diastolic blood pressure 86 mm[Hg] 86 mm[Hg] eCW1 ([facility]) Systolic blood pressure 126 mm[Hg] 126 mm[Hg] e CW1 ([facility]) Body temperature 97.7 [degF] 97.7 [degF] eCW1 ( [facility]) Respiratory rate 18 /min 18 /min eCW1 ([facility]) Heart rate 91 /min 91 /min eCW1 ([facility]) Body mass index (BMI) [Ratio] 38.77 kg/m2 38.77 kg/m2 eCW1 ([facility]) Body height 65 [in_i] 65 [in_i] eCW1 ([facility]) Body weight 233 [lb_av] 233 [lb_av] eCW1 ([facility]) Body mass index (BMI) [Ratio] 39.3 kg/m2 39.3 k g/m2 [facility] ([facility]) Body weight 236.00 [lb_av] 236.00 [lb_av] MEDEN T ([facility]) Body height 65 [in_i] 65 [in_i] MEDENT ([facility]) 5'5" Body temperature 96.8 [degF] 96.8 [degF] [facility] ([facility]) Body weight 112.946 kg 112.946 kg [facility] ([facility]) Body mass index (BMI) [Ratio] 41.4 kg/m2 41.4 k g/m2 [facility] ([facility]) Body weight 249.00 [lb_av] 249.00 [lb_av] MEDEN T ([facility]) Body height 65 [in_i] 65 [in_i] [facility] 5'5" Body temperature 96.9 [degF] 96.9 [degF] [facility] ([facility]) Oxygen saturation in Arterial blood by Pulse oximetry 98 % 98 % [facility] ([facility]) Heart rate 83 /min 83 /min [facility] ([facility]) Diastolic blood pressure 82 mm[Hg] 82 mm[Hg] [facility] ([facility]) Systolic blood pressure 122 mm[Hg] 122 mm[Hg] M EDENT ([facility]) Body height 65 [in_i] 65 [in_i] [facility] ([facility]) 5'5" Oxygen saturation in Arterial blood by Pulse oximetry 99 % 99 % [facility] Respiratory rate 18 /min 18 /min [facility] Body temperature 36.44 Christie 36.44 Christie [facility] Heart rate 97 /min 97 /min [facility] Diastolic blood pressure 75 mm[Hg] 75 mm[Hg] [facility] Systolic blood pressure 105 mm[Hg] 105 mm[Hg] [facility] Body mass index (BMI) [Ratio] 38.92 kg/m2 38.92 kg/m2 [facility] Body weight 106.1 kg 106.1 kg [facility] Body height 165.1 cm 165.1 cm [facility] ID Date Data Source [id number] 04/01/2020 11:01:51 AM EDT [facility] Name Value Range Interpretation Code Description Data Source(s) WEIGHT RECORDED 235 lb 235 lb [facility] Body height Measured 65 in 65 in Upst [facility] Patient Treatment Plan of Care Planned Activity Planned Date Details Description Data Source (s) Dexamethasone 2 MG Oral Tablet 07/03/2020 12:00:00 AM EST eCW1 ([facility]) atorvastatin 20 MG Oral Tablet 06/28/2020 12:00:00 AM EST eCW1 ([facility]) atorvastatin 20 MG Oral Tablet 06/28/2020 12:00:00 AM EST eCW1 ([facility]) apixaban 5 MG Oral Tablet 03/12/2020 12:00:00 AM EDT [facility] 24 HR metoprolol succinate 200 MG Extended Release Ora l Tablet 10/03/2019 12:00:00 AM EDT [facility] Amiodarone hydrochloride 200 MG Oral Tablet 10/03/2019 12:00:00 AM EDT [facility] Furosemide 20 MG Oral Tablet 05/05/2019 12:00:00 AM EDT [facility] 24 HR metoprolol succinate 200 MG Extended Release Ora l Tablet 05/03/2019 12:00:00 AM EDT [facility] gabapentin 300 MG Oral Capsule [facility] Digoxin 0.125 MG Oral Tablet [facility] Digoxin 0.125 MG Oral Tablet [facility] 24 HR metoprolol succinate 200 MG Extended Release Oral Tablet [facility]
[2020-09-04 14:18] LABS: ALBUMIN 3.5 GM/DL (3.2-5.2); ALT/SGPT 20 U/L (12-78); BILIRUBIN,DIRECT 0.1 MG/DL (0.0-0.2); BILIRUBIN,TOTAL 0.4 MG/DL (0.2-1.0); BLOOD UREA NITROGEN 13 MG/DL (7-18); CALCIUM LEVEL 9.5 MG/DL (8.5-10.1); CARBON DIOXIDE LEVEL 31 MEQ/L (21-32); CHLORIDE LEVEL 100 MEQ/L (98-107); CK-MB VALUE MASS 1.1 NG/ML (<3.6); CPK CREATINE PHOSPHOKINASE 59 U/L (26-192); CREATININE FOR GFR 1.01 MG/DL (0.55-1.30); GLOMERULAR FILTRATION RATE 59.9 (>51); GLUCOSE, FASTING 91 MG/DL (70-100); MB/CK RELATIVE INDEX 1.86 (< OR =4); NT-PRO BNP 260 PG/ML (<125); POTASSIUM SERUM 3.2 MEQ/L (3.5-5.1); SODIUM LEVEL 140 MEQ/L (136-145); TOTAL PROTEIN 7.5 GM/DL (6.4-8.2); TROPONIN I < 0.02 NG/ML (< 0.10)
--- NOTE | 2020-09-04 14:22 | REP ---
INDICATION: CHEST PAIN. COMPARISON: Comparison chest x-ray March 15, 2020. TECHNIQUE: Portable upright AP chest radiograph. FINDINGS: There is a small zone linear fibrosis in the left perihilar region. Pacemaker power plant overlies this region. Bipolar pacemaker remains in place. The heart is not enlarged. Pulmonary vasculature is not increased. No infiltrate is seen. Pleural angles are sharp.. IMPRESSION: Pacemaker in place. Linear fibrosis left base. Otherwise no acute disease.. <Electronically signed by Maxim Mandujano > 09/04/20 [id number]
[2020-09-04] MEDS ORDERED: SUCRALFATE SUSP 1GM/10ML UD PO ONE (16:30)
[2020-09-04 17:38] LABS: CK-MB VALUE MASS < 1.0 NG/ML (<3.6); CPK CREATINE PHOSPHOKINASE 53 U/L (26-192); MB/CK RELATIVE INDEX 1.89 (< OR =4); TROPONIN I < 0.02 NG/ML (< 0.10)
[2020-09-04] MEDS ORDERED: SUCR1TA PO (17:54)
[2020-09-04] MEDS ORDERED: OMEP40CA97 PO (17:54)
[2020-09-04 18:23] VITALS: BP 131/61
--- NOTE | 2020-09-06 08:07 | ECGEPIP ---
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
--- NOTE | 2020-09-06 08:10 | ECGEPIP ---
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
== END 2020-09-04 19:00 | disposition home or self-care (01) ==
LOC: M ED 12:21
DX: R07.9 Chest pain, unspecified (principal); G47.33 Obstructive sleep apnea (adult) (pediatric); Z86.79 Personal history of other diseases of the circulatory system; Z95.0 Presence of cardiac pacemaker

== ENCOUNTER → 2020-09-04 | Outpatient (REF) | payer OTHER ==
[~2020-09-04] MED LIST changes: +ATOR1TAB21; +GABA-282 PO; -GABA-843 PO; +OMEP40CA97 PO; +SUCR1TA PO
[2020-09-04 09:50] LABS: BASO # 0.1 10^3/uL (0.0-0.2); BASO % 0.7 % (0.0-1.0); EOS # 0.1 10^3/uL (0.0-0.5); EOS % 1.8 % (0.0-3.0); HEMATOCRIT 37.7 % (36.0-47.0); HEMOGLOBIN 11.9 g/dl (12.0-15.5); LYMPH # 1.9 10^3/uL (1.5-5.0); LYMPH % 26.6 % (24.0-44.0); MEAN CORPUSCULAR HEMOGLOBIN 28.5 pg (27.0-33.0); MEAN CORPUSCULAR HGB CONC 31.6 g/dl (32.0-36.5); MEAN CORPUSCULAR VOLUME 90.4 fl (80.0-96.0); MONO # 0.6 10^3/uL (0.0-0.8); MONO % 7.8 % (2.0-8.0); NEUTROPHILS # 4.5 10^3/uL (1.5-8.5); NEUTROPHILS % 62.5 % (36.0-66.0); PLATELET COUNT, AUTOMATED 266 10^3/uL (150-450); RED BLOOD COUNT 4.17 10^6/uL (4.00-5.40); WHITE BLOOD COUNT 7.2 10^3/uL (4.0-10.0)
[2020-09-04 10:28] LABS: ALBUMIN 3.3 GM/DL (3.2-5.2); ALT/SGPT 20 U/L (12-78); BILIRUBIN,TOTAL 0.4 MG/DL (0.2-1.0); BLOOD UREA NITROGEN 15 MG/DL (7-18); CARBON DIOXIDE LEVEL 31 MEQ/L (21-32); CHLORIDE LEVEL 104 MEQ/L (98-107); CHOLESTEROL LEVEL 143 MG/DL (<200); CHOLESTEROL RISK RATIO 3.404 (<5); CREATININE FOR GFR 0.98 MG/DL (0.55-1.30); GLOMERULAR FILTRATION RATE > 60.0 (>51); GLUCOSE, FASTING 94 MG/DL (70-100); HDL CHOLESTEROL 42 MG/DL (>40); LDL CHOLESTEROL 76 MG/DL (<100); NON-HDL-C 101 MG/DL; NT-PRO BNP 158 PG/ML (<125); POTASSIUM SERUM 3.5 MEQ/L (3.5-5.1); SODIUM LEVEL 141 MEQ/L (136-145); TOTAL PROTEIN 7.1 GM/DL (6.4-8.2); TRIGLYCERIDES LEVEL 127 MG/DL (<150)
[2020-09-04 10:33] LABS: TOTAL 25(OH) VITAMIN D 18.8 NG/ML (30.0-100.0)
== END ==
LOC: M PLALAB 08:01
PROVIDERS: ATTEND Nurse Practitioner Family
DX: R68.89 Other general symptoms and signs (principal); Z79.01 Long term (current) use of anticoagulants; E78.5 Hyperlipidemia, unspecified; E55.9 Vitamin D deficiency, unspecified

== ENCOUNTER → 2020-09-20 | Outpatient (CLI) | payer OTHER ==
[~2020-09-20] MED LIST changes: +ATOR1TAB21; +OMEP40CA97 PO; +SUCR1TA PO
== END ==
LOC: M LABSMTC 11:17
PROVIDERS: ATTEND Internal Medicine Cardiovascular Disease
DX: Z11.52 Encounter for screening for COVID-19 (principal)

== ENCOUNTER → 2021-02-17 | Outpatient (CLI) | payer OTHER ==
[~2021-02-17] MED LIST changes: +OMEP40CA4 PO; -OMEP40CA97 PO
[2021-02-17 10:38] LABS: BASO # 0.1 10^3/uL (0.0-0.2); EOS # 0.1 10^3/uL (0.0-0.5); EOS % 1.6 % (0.0-3.0); LYMPH # 2.1 10^3/uL (1.5-5.0); LYMPH % 32.8 % (24.0-44.0); MEAN CORPUSCULAR HEMOGLOBIN 27.9 pg (27.0-33.0); MEAN CORPUSCULAR HGB CONC 30.8 g/dl (32.0-36.5); MEAN CORPUSCULAR VOLUME 90.7 fl (80.0-96.0); MONO # 0.5 10^3/uL (0.0-0.8); MONO % 7.9 % (2.0-8.0); NEUTROPHILS # 3.6 10^3/uL (1.5-8.5); NEUTROPHILS % 56.4 % (36.0-66.0); PLATELET COUNT, AUTOMATED 253 10^3/uL (150-450); WHITE BLOOD COUNT 6.3 10^3/uL (4.0-10.0)
[2021-02-17 10:58] LABS: HEMOGLOBIN A1c 5.6 %
[2021-02-17 11:20] LABS: ALBUMIN 3.2 GM/DL (3.2-5.2); ALT/SGPT 19 U/L (12-78); BILIRUBIN,TOTAL 0.2 MG/DL (0.2-1.0); BLOOD UREA NITROGEN 16 MG/DL (7-18); CALCIUM LEVEL 8.9 MG/DL (8.5-10.1); CARBON DIOXIDE LEVEL 29 MEQ/L (21-32); CHLORIDE LEVEL 109 MEQ/L (98-107); CHOLESTEROL LEVEL 154 MG/DL (<200); CPK CREATINE PHOSPHOKINASE 37 U/L (26-192); CREATININE FOR GFR 0.67 MG/DL (0.55-1.30); FREE T4 1.05 NG/DL (0.76-1.46); GLOMERULAR FILTRATION RATE > 60.0 (>51); GLUCOSE, FASTING 88 MG/DL (70-100); HDL CHOLESTEROL 44 MG/DL (>40); LDL CHOLESTEROL 84 MG/DL (<100); NON-HDL-C 110 MG/DL; POTASSIUM SERUM 4.6 MEQ/L (3.5-5.1); SODIUM LEVEL 141 MEQ/L (136-145); THYROID STIMULATING HORMONE 0.053 uIU/ML (0.358-3.740); TOTAL 25(OH) VITAMIN D 48.3 NG/ML (30.0-100.0); TOTAL PROTEIN 6.7 GM/DL (6.4-8.2); TRIGLYCERIDES LEVEL 132 MG/DL (<150)
== END ==
LOC: M PLALAB 08:54
PROVIDERS: ATTEND Nurse Practitioner Family
DX: E78.5 Hyperlipidemia, unspecified (principal); I48.20 Chronic atrial fibrillation, unspecified; E55.9 Vitamin D deficiency, unspecified

== ENCOUNTER → 2021-08-28 | Outpatient (CLI) | payer OTHER ==
[~2021-08-28] MED LIST changes: -AMIO200T3 PO; +AMIO200T49 PO; +LOSA25TA13 PO; -LOSA25TA14 PO
[2021-08-28 14:03] LABS: BASO % 0.6 % (0.0-1.0); EOS # 0.1 10^3/uL (0.0-0.5); EOS % 1.7 % (0.0-3.0); HEMATOCRIT 35.1 % (36.0-47.0); LYMPH # 2.2 10^3/uL (1.5-5.0); LYMPH % 30.5 % (24.0-44.0); MEAN CORPUSCULAR HEMOGLOBIN 28.9 pg (27.0-33.0); MEAN CORPUSCULAR HGB CONC 31.3 g/dl (32.0-36.5); MEAN CORPUSCULAR VOLUME 92.1 fl (80.0-96.0); MONO # 0.5 10^3/uL (0.0-0.8); MONO % 6.4 % (2.0-8.0); NEUTROPHILS # 4.3 10^3/uL (1.5-8.5); NEUTROPHILS % 60.2 % (36.0-66.0); PLATELET COUNT, AUTOMATED 239 10^3/uL (150-450); RED BLOOD COUNT 3.81 10^6/uL (4.00-5.40); WHITE BLOOD COUNT 7.1 10^3/uL (4.0-10.0)
[2021-08-28 14:17] LABS: ALBUMIN 3.2 GM/DL (3.2-5.2); ALT/SGPT 18 U/L (12-78); BILIRUBIN,TOTAL 0.2 MG/DL (0.2-1.0); BLOOD UREA NITROGEN 25 MG/DL (7-18); C REACTIVE PROTEIN QUANTITATIV 1.52 MG/DL (0.00-0.30); CALCIUM LEVEL 9.5 MG/DL (8.5-10.1); CARBON DIOXIDE LEVEL 27 MEQ/L (21-32); CHLORIDE LEVEL 108 MEQ/L (98-107); CREATININE FOR GFR 0.98 MG/DL (0.55-1.30); GLOMERULAR FILTRATION RATE > 60.0 (>51); GLUCOSE, FASTING 91 MG/DL (70-100); LIPASE 111 U/L (73-393); POTASSIUM SERUM 4.8 MEQ/L (3.5-5.1); SODIUM LEVEL 140 MEQ/L (136-145)
[2021-08-28 14:33] LABS: ERYTHROCYTE SEDIMENTATION RATE 44 mm/hr (0-30)
== END ==
LOC: M PLALAB 11:12
PROVIDERS: ATTEND Physician Assistant
DX: R10.11 Right upper quadrant pain (principal)

== ENCOUNTER → 2021-08-29 | Outpatient (CLI) | payer OTHER | LOC: M RAD 06:33 | PROVIDERS: ATTEND Physician Assistant | DX: K76.0 Fatty (change of) liver, not elsewhere classified (principal); R10.11 Right upper quadrant pain; R10.13 Epigastric pain ==

== ENCOUNTER → 2021-09-03 | Outpatient (CLI) | payer OTHER ==
[~2021-09-03] MED LIST changes: +GASTROGRAFIN SOLUTION 30ML (Q9963) ONE; +ISOVUE-370 76% 100ML VIAL ONE
== END ==
LOC: M PLAIMG 11:58
PROVIDERS: ATTEND Nurse Practitioner Family
DX: R10.11 Right upper quadrant pain (principal); R10.84 Generalized abdominal pain

== ENCOUNTER 2021-10-04 17:28 | Emergency (ER) | payer OTHER ==
[~2021-10-04] VITALS: Ht 165.1 cm; Wt 102.7 kg
[~2021-10-04 17:28] MED LIST changes: -GASTROGRAFIN SOLUTION 30ML (Q9963) ONE; -ISOVUE-370 76% 100ML VIAL ONE
[2021-10-04] MEDS ORDERED: TELM1TAB33 PO (17:40)
[2021-10-04] MEDS ORDERED: ROSU20TA5 (17:40)
[2021-10-04] MEDS ORDERED: VITA1CAP25 (17:40)
[2021-10-04] MEDS ORDERED: NS 1,000 ML IV ONE (17:50)
[2021-10-04 18:35] LABS: BASO % 0.6 % (0.0-1.0); EOS # 0.2 10^3/uL (0.0-0.5); EOS % 2.1 % (0.0-3.0); HEMOGLOBIN 10.9 g/dl (12.0-15.5); LYMPH # 2.3 10^3/uL (1.5-5.0); MEAN CORPUSCULAR HGB CONC 32.1 g/dl (32.0-36.5); MEAN CORPUSCULAR VOLUME 90.4 fl (80.0-96.0); MONO # 0.5 10^3/uL (0.0-0.8); MONO % 6.7 % (2.0-8.0); NEUTROPHILS # 4.2 10^3/uL (1.5-8.5); NEUTROPHILS % 58.3 % (36.0-66.0); PLATELET COUNT, AUTOMATED 243 10^3/uL (150-450); RED BLOOD COUNT 3.76 10^6/uL (4.00-5.40); WHITE BLOOD COUNT 7.3 10^3/uL (4.0-10.0)
[2021-10-04 18:44] LABS: ALBUMIN 3.1 GM/DL (3.2-5.2); ALT/SGPT 22 U/L (12-78); BILIRUBIN,DIRECT < 0.1 MG/DL (0.0-0.2); BILIRUBIN,TOTAL 0.2 MG/DL (0.2-1.0); BLOOD UREA NITROGEN 19 MG/DL (7-18); CALCIUM LEVEL 8.6 MG/DL (8.5-10.1); CARBON DIOXIDE LEVEL 29 MEQ/L (21-32); CHLORIDE LEVEL 107 MEQ/L (98-107); CREATININE FOR GFR 0.95 MG/DL (0.55-1.30); GLOMERULAR FILTRATION RATE > 60.0 (>51); GLUCOSE, FASTING 107 MG/DL (70-100); POTASSIUM SERUM 4.3 MEQ/L (3.5-5.1); SODIUM LEVEL 141 MEQ/L (136-145); TOTAL PROTEIN 6.8 GM/DL (6.4-8.2)
[2021-10-04 20:09] LABS: LIPASE 139 U/L (73-393)
[2021-10-04 21:03] VITALS: BP 115/59
== END 2021-10-04 21:10 | disposition home or self-care (01) ==
LOC: M ED 17:28
DX: R19.7 Diarrhea, unspecified (principal); I48.91 Unspecified atrial fibrillation; E78.00 Pure hypercholesterolemia, unspecified; I10 Essential (primary) hypertension; R51.9 Headache, unspecified; G47.30 Sleep apnea, unspecified; H40.9 Unspecified glaucoma; M51.24 Other intervertebral disc displacement, thoracic region; F41.9 Anxiety disorder, unspecified; Z79.899 Other long term (current) drug therapy; Z79.01 Long term (current) use of anticoagulants; Z95.0 Presence of cardiac pacemaker; Z98.890 Other specified postprocedural states

== ENCOUNTER → 2021-10-15 | Outpatient (CLI) | payer OTHER ==
[~2021-10-15] MED LIST changes: +ROSU20TA5; +TELM1TAB33 PO; +VITA1CAP25
== END ==
LOC: M WHC 08:41
PROVIDERS: ATTEND Nurse Practitioner Family
DX: Z12.31 Encounter for screening mammogram for malignant neoplasm of breast (principal)

== ENCOUNTER → 2021-10-17 | Outpatient (CLI) | payer OTHER | LOC: M LABSMTC 09:04 | PROVIDERS: ATTEND Anesthesiology | DX: Z01.812 Encounter for preprocedural laboratory examination (principal); Z20.822 Contact with and (suspected) exposure to COVID-19 ==

== ENCOUNTER 2021-10-22 11:44 | Day surgery (SDC) | payer OTHER ==
[~2021-10-22] VITALS: Ht 165.1 cm; Wt 99.7 kg
[~2021-10-22 11:44] MED LIST changes: +LIDOCAINE 2% 100MG/5ML SDV (FOR ANES.) As Ordered ONE; +NS 1,000 ML IV ONE; +propofoL 200 MG/20 ML VIAL As Ordered ONE
[2021-10-22] MEDS ORDERED: ePHEDrine SULFATE 25 MG/5 ML(5MG/ML) SYRINGE As Ordered ONE ×2 (13:15→13:28)
== END 2021-10-22 14:10 | disposition home or self-care (01) ==
LOC: M OPP 11:44
PROVIDERS: ATTEND Surgery
DX: K52.9 Noninfective gastroenteritis and colitis, unspecified (principal); R15.9 Full incontinence of feces; K63.89 Other specified diseases of intestine; Z80.3 Family history of malignant neoplasm of breast; Z80.41 Family history of malignant neoplasm of ovary; Z95.0 Presence of cardiac pacemaker

== ENCOUNTER → 2021-12-17 | Outpatient (CLI) | payer OTHER ==
[~2021-12-17] MED LIST changes: -LIDOCAINE 2% 100MG/5ML SDV (FOR ANES.) As Ordered ONE; -NS 1,000 ML IV ONE; -propofoL 200 MG/20 ML VIAL As Ordered ONE
[2021-12-17 13:15] LABS: ALBUMIN 3.2 GM/DL (3.2-5.2); BILIRUBIN,DIRECT 0.2 MG/DL (0.0-0.2); BILIRUBIN,TOTAL 0.3 MG/DL (0.2-1.0); CHOLESTEROL RISK RATIO 3.851 (<5); CREATININE FOR GFR 1.03 MG/DL (0.55-1.30); GLOMERULAR FILTRATION RATE 58.4 (>51); TOTAL PROTEIN 7.2 GM/DL (6.4-8.2)
[2021-12-17 13:19] LABS: BASO # 0.1 10^3/uL (0.0-0.2); BASO % 0.8 % (0.0-1.0); EOS # 0.2 10^3/uL (0.0-0.5); HEMATOCRIT 37.8 % (36.0-47.0); HEMOGLOBIN 11.8 g/dl (12.0-15.5); LYMPH # 1.8 10^3/uL (1.5-5.0); LYMPH % 30.9 % (24.0-44.0); MEAN CORPUSCULAR HEMOGLOBIN 28.9 pg (27.0-33.0); MEAN CORPUSCULAR HGB CONC 31.2 g/dl (32.0-36.5); MEAN CORPUSCULAR VOLUME 92.4 fl (80.0-96.0); MONO # 0.5 10^3/uL (0.0-0.8); MONO % 8.1 % (2.0-8.0); NEUTROPHILS # 3.4 10^3/uL (1.5-8.5); NEUTROPHILS % 56.9 % (36.0-66.0); PLATELET COUNT, AUTOMATED 234 10^3/uL (150-450); RED BLOOD COUNT 4.09 10^6/uL (4.00-5.40); WHITE BLOOD COUNT 5.9 10^3/uL (4.0-10.0)
[2021-12-19 06:09] LABS: IGASUB2 253.4 mg/dL (73.2-301.2); IGASUB3 43.6 mg/dL (13.4-97.9); IgA SERUM (part of Subclasses) 331 mg/dL (87-352); TISSUE TRANSGLUTAMINASE IgA <2 U/mL (0-3)
== END ==
LOC: M PLALAB 09:23
PROVIDERS: ATTEND Internal Medicine Gastroenterology
DX: R93.5 Abnormal findings on diagnostic imaging of other abdominal regions, including retroperitoneum (principal)

== ENCOUNTER → 2021-12-24 | Outpatient (REF) | payer OTHER | LOC: M LAB REF 11:21 | PROVIDERS: ATTEND Internal Medicine Gastroenterology | DX: R93.5 Abnormal findings on diagnostic imaging of other abdominal regions, including retroperitoneum (principal) ==

== ENCOUNTER → 2022-01-26 | Outpatient (REF) | payer OTHER | LOC: M LAB REF 13:02 | PROVIDERS: ATTEND Internal Medicine Gastroenterology | DX: K52.9 Noninfective gastroenteritis and colitis, unspecified (principal); R93.5 Abnormal findings on diagnostic imaging of other abdominal regions, including retroperitoneum ==

== ENCOUNTER → 2022-02-10 | Outpatient (CLI) | payer OTHER ==
[2022-02-10 11:56] LABS: BASO % 0.6 % (0.0-1.0); EOS # 0.1 10^3/uL (0.0-0.5); EOS % 1.8 % (0.0-3.0); HEMOGLOBIN 11.4 g/dl (12.0-15.5); LYMPH # 1.9 10^3/uL (1.5-5.0); LYMPH % 28.3 % (24.0-44.0); MEAN CORPUSCULAR HGB CONC 31.7 g/dl (32.0-36.5); MEAN CORPUSCULAR VOLUME 88.5 fl (80.0-96.0); MONO # 0.4 10^3/uL (0.0-0.8); MONO % 5.8 % (2.0-8.0); NEUTROPHILS # 4.3 10^3/uL (1.5-8.5); NEUTROPHILS % 63.2 % (36.0-66.0); PLATELET COUNT, AUTOMATED 218 10^3/uL (150-450); RED BLOOD COUNT 4.07 10^6/uL (4.00-5.40); WHITE BLOOD COUNT 6.8 10^3/uL (4.0-10.0)
[2022-02-10 13:00] LABS: ALBUMIN 3.3 GM/DL (3.2-5.2); BILIRUBIN,TOTAL 0.5 MG/DL (0.2-1.0); CALCIUM LEVEL 9.1 MG/DL (8.5-10.1); CHOLESTEROL RISK RATIO 2.744 (<5); CREATININE FOR GFR 1.02 MG/DL (0.55-1.30); FREE T4 0.93 NG/DL (0.76-1.46); POTASSIUM SERUM 4.6 MEQ/L (3.5-5.1); THYROID STIMULATING HORMONE 0.856 uIU/ML (0.358-3.740)
[2022-02-10 13:29] LABS: TOTAL 25(OH) VITAMIN D 80.4 NG/ML (30.0-100.0)
[2022-02-10 15:49] LABS: HEMOGLOBIN A1c 5.4 %
== END ==
LOC: M LAB 10:51
PROVIDERS: ATTEND Nurse Practitioner Family
DX: R79.89 Other specified abnormal findings of blood chemistry (principal); I10 Essential (primary) hypertension; E78.5 Hyperlipidemia, unspecified; E55.9 Vitamin D deficiency, unspecified; I48.20 Chronic atrial fibrillation, unspecified

== ENCOUNTER 2022-04-25 12:26 | Emergency (ER) | payer OTHER ==
[~2022-04-25] VITALS: Ht 165.1 cm; Wt 102.2 kg
[2022-04-25] MEDS ORDERED: ERYT5OIN25 OP (12:54)
[2022-04-25] MEDS ORDERED: OMEP40CA5 PO (12:54)
[2022-04-25] MEDS ORDERED: FLUO20CA22 PO (12:54)
[2022-04-25] MEDS ORDERED: FURO40TA2 PO (12:54)
[2022-04-25] MEDS ORDERED: ROSU20TA5 PO (12:54)
[2022-04-25 13:33] LABS: BASO % 0.6 % (0.0-1.0); EOS # 0.1 10^3/uL (0.0-0.5); EOS % 1.5 % (0.0-3.0); HEMATOCRIT 34.8 % (36.0-47.0); HEMOGLOBIN 11.3 g/dl (12.0-15.5); LYMPH # 1.9 10^3/uL (1.5-5.0); LYMPH % 29.2 % (24.0-44.0); MEAN CORPUSCULAR HEMOGLOBIN 29.4 pg (27.0-33.0); MEAN CORPUSCULAR HGB CONC 32.5 g/dl (32.0-36.5); MEAN CORPUSCULAR VOLUME 90.4 fl (80.0-96.0); MONO # 0.4 10^3/uL (0.0-0.8); MONO % 6.7 % (2.0-8.0); NEUTROPHILS % 61.7 % (36.0-66.0); PLATELET COUNT, AUTOMATED 227 10^3/uL (150-450); RED BLOOD COUNT 3.85 10^6/uL (4.00-5.40); WHITE BLOOD COUNT 6.5 10^3/uL (4.0-10.0)
[2022-04-25 13:50] LABS: INR 1.15; PROTHROMBIN TIME 15.1 SECONDS (12.7-14.5)
[2022-04-25 13:51] LABS: PARTIAL THROMBOPLASTIN TIME 39.9 SECONDS (25.9-37.0)
[2022-04-25 14:01] LABS: CK-MB VALUE MASS < 1.0 NG/ML (<3.6); CPK CREATINE PHOSPHOKINASE 41 U/L (26-192); MB/CK RELATIVE INDEX 2.44 (< OR =4)
[2022-04-25 14:25] LABS: ALBUMIN 3.3 GM/DL (3.2-5.2); ALT/SGPT 18 U/L (12-78); BILIRUBIN,DIRECT < 0.1 MG/DL (0.0-0.2); BILIRUBIN,TOTAL 0.3 MG/DL (0.2-1.0); BLOOD UREA NITROGEN 21 MG/DL (7-18); CALCIUM LEVEL 9.1 MG/DL (8.5-10.1); CARBON DIOXIDE LEVEL 27 MEQ/L (21-32); CHLORIDE LEVEL 106 MEQ/L (98-107); CREATININE FOR GFR 1.16 MG/DL (0.55-1.30); FREE T4 0.88 NG/DL (0.76-1.46); GLOMERULAR FILTRATION RATE 50.9 (>51); GLUCOSE, FASTING 93 MG/DL (70-100); PHOSPHORUS LEVEL 2.7 MG/DL (2.5-4.9); POTASSIUM SERUM 4.2 MEQ/L (3.5-5.1); SODIUM LEVEL 139 MEQ/L (136-145)
[2022-04-25] MEDS ORDERED: DIGOXIN INJ 0.5 MG/2 ML AMP (J1160) IV ONE (15:10)
[2022-04-25] MEDS ORDERED: DIGO0.123 PO (15:10)
[2022-04-25 16:00] VITALS: BP 90/51
== END 2022-04-25 16:08 | disposition home or self-care (01) ==
LOC: M ED 12:26
DX: I48.20 Chronic atrial fibrillation, unspecified (principal); I10 Essential (primary) hypertension; E78.5 Hyperlipidemia, unspecified; F41.9 Anxiety disorder, unspecified; Z79.899 Other long term (current) drug therapy; Z79.01 Long term (current) use of anticoagulants
CPT/HCPCS: 71046; 80048; 80076; 82550; 82553; 83735; 84100; 84439; 84443; 84484; 85025; 85610; 85730; 93005; 93041; 94760; 96374; 99285; J1160

== ENCOUNTER → 2022-05-07 | Outpatient (CLI) | payer OTHER ==
[~2022-05-07] MED LIST changes: +ERYT5OIN25 OP; +FLUO20CA22 PO; +FURO40TA2 PO; +OMEP40CA5 PO; +ROSU20TA5 PO
== END ==
LOC: M PLAIMG 09:58
PROVIDERS: ATTEND Nurse Practitioner Family
DX: M47.817 Spondylosis without myelopathy or radiculopathy, lumbosacral region (principal)

== ENCOUNTER → 2022-05-11 | Outpatient (CLI) | payer OTHER | LOC: M WHC 09:11 | PROVIDERS: ATTEND Nurse Practitioner Family | DX: R92.8 Other abnormal and inconclusive findings on diagnostic imaging of breast (principal); Z12.31 Encounter for screening mammogram for malignant neoplasm of breast | CPT/HCPCS: 77065; G0279 ==

== ENCOUNTER → 2022-06-26 | Outpatient (CLI) | payer OTHER | LOC: M PLAIMG 09:45 → M PLARAD 09:45 | PROVIDERS: ATTEND Nurse Practitioner Family | DX: M53.86 Other specified dorsopathies, lumbar region (principal); M47.26 Other spondylosis with radiculopathy, lumbar region; M48.061 Spinal stenosis, lumbar region without neurogenic claudication ==

== ENCOUNTER 2022-12-16 11:56 | Emergency (ER) | payer OTHER ==
[~2022-12-16] VITALS: Ht 165.1 cm; Wt 104.1 kg
[2022-12-16] MEDS ORDERED: TIZA10TA (12:04)
[2022-12-16] MEDS ORDERED: METO1TAB87 (12:04)
[2022-12-16] MEDS ORDERED: NORCO, ANEXSIA 5/325MG TABLET (HYDROcodone/ACETAMINOPHEN) PO ONE (14:10)
[2022-12-16 15:11] VITALS: BP 108/55
== END 2022-12-16 15:58 | disposition home or self-care (01) ==
LOC: M ED 11:56
DX: R10.31 Right lower quadrant pain (principal); I48.91 Unspecified atrial fibrillation; K52.9 Noninfective gastroenteritis and colitis, unspecified; Z79.899 Other long term (current) drug therapy; Z79.01 Long term (current) use of anticoagulants; Z95.0 Presence of cardiac pacemaker

== ENCOUNTER → 2023-05-18 | Outpatient (CLI) | payer OTHER ==
[~2023-05-18] MED LIST changes: +METO1TAB87; -ROSU20TA5; -ROSU20TA5 PO; +ROSU20TA61; +ROSU20TA61 PO; +TIZA10TA
[2023-05-18 17:37] LABS: FREE T4 0.84 NG/DL (0.89-1.76); THYROID STIMULATING HORMONE 0.784 uIU/ML (0.55-4.78)
[2023-05-18 18:03] LABS: HEMOGLOBIN A1c 4.9 % (4.0-6.0)
== END ==
LOC: M PLALAB 15:54
PROVIDERS: ATTEND Nurse Practitioner Family
DX: R73.01 Impaired fasting glucose (principal)

== ENCOUNTER 2023-06-27 07:30 | Emergency (ER) | payer OTHER ==
[~2023-06-27] VITALS: Ht 165.1 cm; Wt 105.2 kg
[2023-06-27 07:30] VITALS: BP 114/57; TEMP 100.9; O2SAT 97
== END 2023-06-27 12:36 | disposition home or self-care (01) ==
LOC: M ED 07:30
DX: J10.1 Influenza due to other identified influenza virus with other respiratory manifestations (principal); I48.91 Unspecified atrial fibrillation; Z95.0 Presence of cardiac pacemaker; Z79.899 Other long term (current) drug therapy; Z79.01 Long term (current) use of anticoagulants

== ENCOUNTER → 2023-07-01 | Outpatient (CLI) | payer OTHER | LOC: M PLAIMG 12:10 | PROVIDERS: ATTEND Student in an Organized Health Care Education/Training Program | DX: R06.2 Wheezing (principal) ==

== ENCOUNTER → 2023-07-01 | Outpatient (REF) | payer OTHER | LOC: M SFHCPLAZ 11:34 | PROVIDERS: ATTEND Student in an Organized Health Care Education/Training Program | DX: R05.2 Subacute cough (principal) ==

== ENCOUNTER → 2023-09-23 | Outpatient (CLI) | payer OTHER | LOC: M PLAIMG 10:33 | PROVIDERS: ATTEND Pain Medicine Interventional Pain Medicine | DX: M48.061 Spinal stenosis, lumbar region without neurogenic claudication (principal) ==

== ENCOUNTER 2023-09-29 15:05 | Emergency (ER) | payer OTHER ==
[~2023-09-29] VITALS: Ht 165.1 cm; Wt 109.3 kg
[2023-09-29 16:17] LABS: BASO # 0.1 10^3/uL (0.0-0.2); BASO % 0.6 % (0.0-1.0); EOS # 0.1 10^3/uL (0.0-0.5); EOS % 1.1 % (0.0-3.0); HEMATOCRIT 37.9 % (36.0-47.0); HEMOGLOBIN 12.1 g/dl (12.0-15.5); LYMPH # 2.3 10^3/uL (1.5-5.0); MEAN CORPUSCULAR HEMOGLOBIN 28.7 pg (27.0-33.0); MEAN CORPUSCULAR HGB CONC 31.9 g/dl (32.0-36.5); MEAN CORPUSCULAR VOLUME 89.8 fl (80.0-96.0); MONO # 0.6 10^3/uL (0.0-0.8); MONO % 6.9 % (2.0-8.0); NEUTROPHILS # 6.2 10^3/uL (1.5-8.5); NEUTROPHILS % 66.1 % (36.0-66.0); PLATELET COUNT, AUTOMATED 271 10^3/uL (150-450); RED BLOOD COUNT 4.22 10^6/uL (4.00-5.40); WHITE BLOOD COUNT 9.3 10^3/uL (4.0-10.0)
[2023-09-29 16:29] LABS: ALBUMIN 3.6 G/DL (3.2-5.2); ALKALINE PHOSPHATASE 87 U/L (46-116); ALT/SGPT 14 U/L (7.0-40); AST/SGOT 14 U/L (<34); BILIRUBIN,DIRECT 0.1 MG/DL (<0.4); BILIRUBIN,TOTAL 0.3 MG/DL (0.3-1.2); BLOOD UREA NITROGEN 20 MG/DL (9-23); CALCIUM LEVEL 8.5 MG/DL (8.3-10.6); CARBON DIOXIDE LEVEL 26 MMOL/L (20-31); CHLORIDE LEVEL 104 MMOL/L (98-107); CK-MB VALUE MASS < 1.0 NG/ML (<3.6); CREATININE FOR GFR 1.16 MG/DL (0.55-1.30); GLOMERULAR FILTRATION RATE 50.6 (>45); GLUCOSE, FASTING 106 MG/DL (74-106); POTASSIUM SERUM 3.8 MMOL/L (3.5-5.1); SODIUM LEVEL 139 MMOL/L (136-145); TOTAL PROTEIN 6.9 G/DL (5.7-8.2)
[2023-09-29 16:41] LABS: CPK CREATINE PHOSPHOKINASE 72 U/L (34-145); MB/CK RELATIVE INDEX 1.38 (< OR =4)
[2023-09-29 17:15] VITALS: BP 146/66; O2SAT 99
[2023-09-29 17:37] VITALS: TEMP 98.7
== END 2023-09-29 17:38 | disposition home or self-care (01) ==
LOC: M ED 15:05
DX: I87.2 Venous insufficiency (chronic) (peripheral) (principal); I48.91 Unspecified atrial fibrillation; I10 Essential (primary) hypertension; E78.5 Hyperlipidemia, unspecified; G47.33 Obstructive sleep apnea (adult) (pediatric); Z79.899 Other long term (current) drug therapy

== ENCOUNTER → 2023-10-20 | Outpatient (CLI) | payer OTHER ==
[~2023-10-20] MED LIST changes: +METO200T15 PO; -METO200T28 PO
[2023-10-20 09:19] LABS: BASO % 0.5 % (0.0-1.0); EOS # 0.2 10^3/uL (0.0-0.5); EOS % 3.3 % (0.0-3.0); HEMATOCRIT 38.6 % (36.0-47.0); HEMOGLOBIN 12.1 g/dl (12.0-15.5); LYMPH # 2.1 10^3/uL (1.5-5.0); LYMPH % 31.5 % (24.0-44.0); MEAN CORPUSCULAR HEMOGLOBIN 28.7 pg (27.0-33.0); MEAN CORPUSCULAR HGB CONC 31.3 g/dl (32.0-36.5); MEAN CORPUSCULAR VOLUME 91.5 fl (80.0-96.0); MONO # 0.5 10^3/uL (0.0-0.8); MONO % 7.7 % (2.0-8.0); NEUTROPHILS # 3.7 10^3/uL (1.5-8.5); NEUTROPHILS % 56.4 % (36.0-66.0); PLATELET COUNT, AUTOMATED 220 10^3/uL (150-450); RED BLOOD COUNT 4.22 10^6/uL (4.00-5.40); WHITE BLOOD COUNT 6.6 10^3/uL (4.0-10.0)
[2023-10-20 09:43] LABS: ALKALINE PHOSPHATASE 76 U/L (46-116); ALT/SGPT 21 U/L (7.0-40); AST/SGOT 11 U/L (<34); BILIRUBIN,TOTAL 0.5 MG/DL (0.3-1.2); BLOOD UREA NITROGEN 25 MG/DL (9-23); CALCIUM LEVEL 8.9 MG/DL (8.3-10.6); CARBON DIOXIDE LEVEL 30 MMOL/L (20-31); CHLORIDE LEVEL 107 MMOL/L (98-107); CHOLESTEROL LEVEL 121 MG/DL (<200); CHOLESTEROL RISK RATIO 2.36 (<5); CREATININE FOR GFR 0.98 MG/DL (0.55-1.30); GLOMERULAR FILTRATION RATE > 60.0 (>45); GLUCOSE, FASTING 86 MG/DL (74-106); HDL CHOLESTEROL 51.2 MG/DL (>40); LDL CHOLESTEROL 53.6 MG/DL (<100); NON-HDL-C 69.8 MG/DL; POTASSIUM SERUM 4.2 MMOL/L (3.5-5.1); SODIUM LEVEL 140 MMOL/L (136-145); TOTAL PROTEIN 6.1 G/DL (5.7-8.2); TRIGLYCERIDES LEVEL 81 MG/DL (<150)
[2023-10-20 09:45] LABS: FREE T4 1.01 NG/DL (0.89-1.76); TOTAL 25(OH) VITAMIN D 25.2 NG/ML (20.0-100.0)
[2023-10-20 10:17] LABS: HEPATITIS C VIRUS ABY INDEX < 0.02 INDEX (<0.8)
== END ==
LOC: M LAB 08:24
PROVIDERS: ATTEND Nurse Practitioner Family
DX: E78.5 Hyperlipidemia, unspecified (principal)

== ENCOUNTER → 2023-11-05 | Outpatient (CLI) | payer OTHER ==
[2023-11-05 10:39] LABS: CALCIUM LEVEL 9.1 MG/DL (8.3-10.6); POTASSIUM SERUM 4.3 MMOL/L (3.5-5.1)
== END ==
LOC: M LAB 08:59
PROVIDERS: ATTEND Physician Assistant
DX: R06.09 Other forms of dyspnea (principal)

== ENCOUNTER → 2024-03-15 | Outpatient (CLI) | payer OTHER ==
[~2024-03-15] MED LIST changes: +FLUO-365 PO; -FLUO20CA22 PO
== END ==
LOC: M PLAIMG 10:40
PROVIDERS: ATTEND Nurse Practitioner Family
DX: M16.11 Unilateral primary osteoarthritis, right hip (principal)

== ENCOUNTER → 2024-05-03 | Outpatient (REF) | payer OTHER ==
[~2024-05-03] MED LIST changes: +GABA-1172 PO; -GABA-282 PO; -ROSU20TA61; -ROSU20TA61 PO; +ROSU20TA86; +ROSU20TA86 PO
== END ==
LOC: M SFHCPLAZ 09:47
PROVIDERS: ATTEND Physician Assistant Medical
DX: J06.9 Acute upper respiratory infection, unspecified (principal)

== ENCOUNTER → 2024-05-26 | Outpatient (CLI) | payer OTHER ==
[2024-05-26 08:21] LABS: BASO # 0.1 10^3/uL (0.0-0.2); BASO % 0.8 % (0.0-1.0); EOS # 0.1 10^3/uL (0.0-0.5); EOS % 1.7 % (0.0-3.0); HEMATOCRIT 40.1 % (36.0-47.0); HEMOGLOBIN 12.6 g/dl (12.0-15.5); LYMPH # 1.8 10^3/uL (1.5-5.0); LYMPH % 28.3 % (24.0-44.0); MEAN CORPUSCULAR HEMOGLOBIN 29.6 pg (27.0-33.0); MEAN CORPUSCULAR HGB CONC 31.4 g/dl (32.0-36.5); MEAN CORPUSCULAR VOLUME 94.4 fl (80.0-96.0); MONO # 0.4 10^3/uL (0.0-0.8); MONO % 6.6 % (2.0-8.0); NEUTROPHILS % 62.3 % (36.0-66.0); PLATELET COUNT, AUTOMATED 235 10^3/uL (150-450); RED BLOOD COUNT 4.25 10^6/uL (4.00-5.40); WHITE BLOOD COUNT 6.4 10^3/uL (4.0-10.0)
[2024-05-26 08:56] LABS: ALBUMIN 3.2 G/DL (3.2-5.2); ALKALINE PHOSPHATASE 84 U/L (35-104); ALT/SGPT 21 U/L (7.0-40); AST/SGOT 14 U/L (<34); BILIRUBIN,TOTAL 0.4 MG/DL (0.3-1.2); BLOOD UREA NITROGEN 21 MG/DL (9-23); CALCIUM LEVEL 9.2 MG/DL (8.3-10.6); CARBON DIOXIDE LEVEL 27 MMOL/L (20-31); CHLORIDE LEVEL 111 MMOL/L (98-107); CHOLESTEROL LEVEL 145 MG/DL (<200); CHOLESTEROL RISK RATIO 2.76 (<5); CREATININE FOR GFR 0.88 MG/DL (0.55-1.30); GLOMERULAR FILTRATION RATE > 60.0 (>45); GLUCOSE, FASTING 90 MG/DL (74-106); HDL CHOLESTEROL 52.4 MG/DL (>40); NON-HDL-C 92.6 MG/DL; POTASSIUM SERUM 4.3 MMOL/L (3.5-5.1); SODIUM LEVEL 142 MMOL/L (136-145); THYROID STIMULATING HORMONE 1.442 uIU/ML (0.55-4.78); TOTAL PROTEIN 6.9 G/DL (5.7-8.2); TRIGLYCERIDES LEVEL 93 MG/DL (<150)
[2024-05-26 09:09] LABS: HEMOGLOBIN A1c 5.4 % (4.0-6.0)
== END ==
LOC: M LAB 07:40
PROVIDERS: ATTEND Nurse Practitioner Family
DX: I10 Essential (primary) hypertension (principal); E78.5 Hyperlipidemia, unspecified

== ENCOUNTER → 2024-08-24 | Outpatient (REF) | payer OTHER | LOC: M SFHCPLAZ 12:22 | PROVIDERS: ATTEND Nurse Practitioner Family | DX: R05.9 Cough, unspecified (principal) ==

== ENCOUNTER → 2024-08-29 | Outpatient (CLI) | payer OTHER ==
[2024-08-29 13:55] LABS: BASO # 0.1 10^3/uL (0.0-0.2); BASO % 0.4 % (0.0-1.0); EOS % 0.2 % (0.0-3.0); HEMOGLOBIN 13.8 g/dl (12.0-15.5); LYMPH # 1.4 10^3/uL (1.5-5.0); LYMPH % 10.6 % (24.0-44.0); MEAN CORPUSCULAR HEMOGLOBIN 28.6 pg (27.0-33.0); MEAN CORPUSCULAR HGB CONC 31.4 g/dl (32.0-36.5); MEAN CORPUSCULAR VOLUME 91.1 fl (80.0-96.0); MONO # 0.5 10^3/uL (0.0-0.8); MONO % 4.1 % (2.0-8.0); NEUTROPHILS % 84.1 % (36.0-66.0); PLATELET COUNT, AUTOMATED 341 10^3/uL (150-450); RED BLOOD COUNT 4.83 10^6/uL (4.00-5.40); WHITE BLOOD COUNT 13.1 10^3/uL (4.0-10.0)
[2024-08-29 14:48] LABS: ALBUMIN 3.6 G/DL (3.2-5.2); BILIRUBIN,TOTAL 0.4 MG/DL (0.3-1.2); CALCIUM LEVEL 9.2 MG/DL (8.3-10.6); CREATININE FOR GFR 1.1 MG/DL (0.55-1.30); GLOMERULAR FILTRATION RATE 53.6 (>45); MAGNESIUM LEVEL 1.9 MG/DL (1.8-2.4); POTASSIUM SERUM 3.9 MMOL/L (3.5-5.1); TOTAL PROTEIN 7.6 G/DL (5.7-8.2)
[2024-08-29 14:53] LABS: FERRITIN 154.3 NG/ML (7.3-270.7)
== END ==
LOC: M LAB 12:08
PROVIDERS: ATTEND Family Medicine
DX: I48.20 Chronic atrial fibrillation, unspecified (principal)

== ENCOUNTER → 2025-03-15 | Outpatient (CLI) | payer OTHER ==
[~2025-03-15] MED LIST changes: -AMIO200T49 PO; +AMIO200T54 PO
== END ==
LOC: M LAB 14:20
PROVIDERS: ATTEND Nurse Practitioner Acute Care
DX: R07.89 Other chest pain (principal); R61 Generalized hyperhidrosis

== ENCOUNTER → 2025-03-23 | Outpatient (CLI) | payer OTHER ==
[2025-03-23 11:54] LABS: BASO # 0.0 10^3/uL (0.0-0.2); BASO % 0.6 % (0.0-1.0); EOS # 0.2 10^3/uL (0.0-0.5); EOS % 2.1 % (0.0-3.0); LYMPH # 1.8 10^3/uL (1.5-5.0); LYMPH % 25.2 % (24.0-44.0); MONO # 0.4 10^3/uL (0.0-0.8); MONO % 6.3 % (2.0-8.0); NEUTROPHILS # 4.6 10^3/uL (1.5-8.5); NEUTROPHILS % 65.4 % (36.0-66.0); PLATELET COUNT, AUTOMATED 255 10^3/uL (150-450)
[2025-03-23 12:08] LABS: ESTIMATED AVERAGE GLUCOSE 120.0 MG/DL (60-110)
[2025-03-23 12:21] LABS: ALT/SGPT 16.0 U/L (7.0-40); AST/SGOT 18.0 U/L (<34); CALCIUM LEVEL 9.1 MG/DL (8.3-10.6); CARBON DIOXIDE LEVEL 28.0 MMOL/L (20-31); CHLORIDE LEVEL 106.0 MMOL/L (98-107); CHOLESTEROL LEVEL 133.0 MG/DL (<200); CHOLESTEROL RISK RATIO 3.13 (<5); CREATININE FOR GFR 0.92 MG/DL (0.55-1.30); GLOMERULAR FILTRATION RATE 70.4 (>45); IRON (FE) 43.0 UG/DL (50-170); LDL CHOLESTEROL 57.6 MG/DL (<100); MAGNESIUM LEVEL 2.1 MG/DL (1.8-2.4); NON-HDL-C 90.6 MG/DL; PERCENT SATURATION 15.2 % (13.2-45.0); POTASSIUM SERUM 4.0 MMOL/L (3.5-5.1); SODIUM LEVEL 143.0 MMOL/L (136-145); TRIGLYCERIDES LEVEL 165.0 MG/DL (<150)
[2025-03-23 12:22] LABS: FREE T4 0.81 NG/DL (0.89-1.76); TOTAL 25(OH) VITAMIN D 33.3 NG/ML (20.0-100.0)
[2025-03-23 12:23] LABS: VITAMIN B12 LEVEL 476.0 PG/ML (211-911)
== END ==
LOC: M LAB 11:00
PROVIDERS: ATTEND Nurse Practitioner Family
DX: I10 Essential (primary) hypertension (principal); E55.9 Vitamin D deficiency, unspecified; R53.83 Other fatigue; E78.5 Hyperlipidemia, unspecified; R73.01 Impaired fasting glucose

== ENCOUNTER → 2025-05-09 | Outpatient (CLI) | payer OTHER | LOC: M LAB 12:17 | PROVIDERS: ATTEND Nurse Practitioner Acute Care | DX: R06.09 Other forms of dyspnea (principal) ==